=== PATIENT | male | born 1940 | race Caucasian/White ===

== ENCOUNTER 2019-11-08 00:18 | Outpatient (CLI) | payer MEDICARE, SELFPAY ==
[2019-11-08 15:54] LABS: SARS-CoV-2 RNA PCR Negative
== END 2019-11-08 00:19 | disposition home or self-care (01) ==
LOC: ANHCOVIDDT 00:19
PROVIDERS: PCP Internal Medicine; Visit Provider Specialist
DX: Z01.818 Encounter for other preprocedural examination (principal); Z11.59 Encounter for screening for other viral diseases
CPT/HCPCS: 87635; C9803; U0003

== ENCOUNTER 2019-11-11 05:16 | Day surgery (SDC) | payer MEDICARE, SELFPAY ==
[2019-11-08 18:23] VITALS: BMI 25.9
[2019-11-11] VITALS (12 sets, daily range): BP systolic 141–171; BP diastolic 66–85; PULSE 48–64; RESP 12–16; TEMP 36.4–36.6; O2SAT 99–100; BMI 25.9; BMI 25.0
--- NOTE | 2019-11-11 07:20 | SUR.PREOP ---
ARRIVES AMBULATORY TO [facility] FROM OP SURGICAL REGISTRATION FOR SCHEDULED LHC W/ DR. HO. DENIES CP OR SOB AT THIS TIME. ORIENTED TO ROOM , PLAN OF CARE, PROCEDURE. QUESTIONS ANSWERED. VS OBTAINED, IV STARTED, LABS SENT, CONSENT SIGNED, SKIN PREP COMPLETED, PULSES MARKED. WILL MONITOR.
[2019-11-11 07:41] LABS: Basophils Percent Auto 0.5 % (0.2-1.2); Eosinophils Absolute Auto 0.2 K/mm3 (0-0.3); Hematocrit 39.1 % (42.0-52.0); Hemoglobin 12.7 g/dL (14.0-18.0); Immature Granulocyte Absolute 0.01 K/mm3 (0.00-0.031); Immature Granulocyte Percent A 0.2 % (0-0.5); Lymphocytes Absolute Auto 1.54 K/mm3 (0.9-3.2); Lymphocytes Percent Auto 36.7 % (18.3-44.2); Mean Corpuscular HGB Conc 32.5 g/dl (32-36); Mean Corpuscular Hemoglobin 31.5 pg (26-34); Mean Platelet Volume 10.6 fl (7.4-10.4); Monocytes Absolute Auto 0.3 K/mm3 (0.1-0.6); Monocytes Percent Auto 6.2 % (2.6-8.5); Neutrophils Absolute Auto 2.2 K/mm3 (1.3-6.7); Neutrophils Percent Auto 52.4 % (45.5-73.1); Platelet Count Result 144 k/mm3 (150-375); Red Blood Count 4.03 M/mm3 (4.6-6.20); Red Cell Distribution Width 13.1 % (11.5-14.5); White Blood Count 4.2 K/mm3 (4.5-10.0)
[2019-11-11 07:50] LABS: INR 0.9; Prothrombin Time 12.3 Seconds (11.1-14.7)
[2019-11-11 07:52] LABS: Blood Urea Nitrogen 29 mg/dL (9-20); Calcium 9.5 mg/dL (8.4-10.2); Carbon Dioxide 30 mmol/L (22-30); Chloride 104 mmol/L (98-107); Estimated CRCL calculation 54 ml/min; Estimated Glomerular Filt Rate > 60; Glucose 95 mg/dL (75-110); Sodium 137 mmol/L (137-145)
--- NOTE | 2019-11-11 08:50 | WPDMODSED ---
Moderate Sedation Note-Pt Data Patient Data Diagnosis: 79-year-old gentleman with no previous documented history of coronary disease with a history of chest pain intermittently for approximately 1 year that is nonexertional. Present Complaint: Intermittent chest pain Procedure to be performed/Plan: left heart catheterization Allergies Allergy/AdvReac Type Severity Reaction Status Date / Time No Known Allergies Allergy Unknown Uncoded 11/08/19 18:12 Home Medications Medication Instructions Recorded Confirmed Type tamsulosin 0.4 mg capsule 0.4 mg PO DAILY #90 cap 06/11/19 11/08/19 Rx levothyroxine 50 mcg tablet 50 mcg PO DAILY #90 tablet 09/18/19 11/08/19 Rx lisinopril 10 mg tablet 10 mg PO DAILY #90 tablet 09/18/19 11/08/19 Rx aspirin [Adult Low Dose Aspirin] 81 mg PO DAILY 11/08/19 11/08/19 History omeprazole 20 mg PO DAILY 11/08/19 11/08/19 History Current Medications: Active Medications Sodium Chloride (Normal Saline Iv) 500 mls @ 100 mls/hr IV CONT .Q5H [facility] Sedation/Anesthesia: No previous sedation/anesthesia problems (including family history). [facility] Social History Social History (Updated 11/08/19 @ 18:11 by Shanelle Thompson RN) Smoking status: Never smoker Alcohol intake: current Drinks per week: 1 Substance use: never Gender identity (if verbalized by the patient): Male Mod Sed Physical Exam Physical Exam Pre Procedural Exam: Normal: Appearance, Neck, Throat, Airway, Lungs, Heart Size, Heart Rate, Heart Rhythm, Neuro Exam and Extremities Hours since solid foods: 12 Hours since liquid intake: 12 Internal Medicine - PN: Obj Da Vital Signs Vital Signs: Vital Signs - 24 hr 11/11/19 07:35 Temperature 36.4 C L Pulse Rate 64 Respiratory Rate 16 Blood Pressure 171/85 H Pulse Oximetry 100 Meds/Results Medications: Active Medications Generic Name Dose Route Start Last Admin Trade Name Freq PRN Reason Stop Dose Admin Sodium Chloride 500 mls @ 100 mls/hr 11/11/19 06:45 Normal Saline Iv IV CONT .Q5H [facility] Labs CBC & Chem 7: 11/11/19 07:34 11/11/19 07:34 Labs: Laboratory Results - last 24 hr 11/11/19 11/11/19 11/11/19 07:34 07:34 07:34 WBC 4.2 L RBC 4.03 L Hgb 12.7 L Hct 39.1 L MCV 97.0 MCH 31.5 MCHC 32.5 RDW 13.1 Plt Count 144 L MPV 10.6 H Immature Gran % (Auto) 0.2 Neut % (Auto) 52.4 Lymph % (Auto) 36.7 Bailey % (Auto) 6.2 Eos % (Auto) 4.0 Baso % (Auto) 0.5 Lymph # (Auto) 1.54 Bailey # (Auto) 0.3 Eos # (Auto) 0.2 Baso # (Auto) 0.0 Abs Immat Gran (auto) 0.01 Absolute Neuts (auto) 2.2 Absolute Nucleated RBC 0.0 Nucleated RBC % 0.0 PT 12.3 INR 0.9 Sodium 137 Potassium 4.0 Chloride 104 Carbon Dioxide 30 BUN 29 H Creatinine 0.90 Estim Creat Clear Calc 54 Estimated GFR > 60 Glucose 95 Calcium 9.5 ASA Classification/Sedation ASA Classification/Sedation ASA Class: II Emergent: No Risks: Risks, benefits and alternatives explained and patient/family accepted plan for sedation. Patient re-evaluated immediately prior to sedation.
--- NOTE | 2019-11-11 09:29 | P.PCNCC_ITS ---
Cardiac Cath Procedure Note Date of procedure:: 11/11/19 Performing physician:: Marlo Magana MD Indication:: intermittent chest pain Brief clinical history:: 79-year-old gentleman with about a 1 year history of chest pain intermittently which is atypical of angina. Procedure Procedure performed:: Left heart catheterization with left ventriculography and coronary angiography Sedation/Medication given:: fentanyl 50 mg Versed 2 mg case start time 9:12 a.m. case end time 9:27 a.m. sedation provided byAlbert Aguilera RN , trained observer Access site:: right femoral Estimated blood loss:: 15-20 cc Procedure note:: patient was brought to the cardiac catheterization lab in the postabsorptive state where the right femoral triangle was prepared and draped in the usual fashion. Anesthesia was provided with 1% lidocaine infiltrated locally. Using modified Seldinger technique a 5 Filipino sheath was placed into the right femoral artery. After this left heart catheterization was carried out. The 5 Filipino angled pigtail catheter was utilized to measure left-sided hemodynamics and to injection LV g in the are AO projection. Following this I used standard FL4 and JR4 catheters to engage inject left right coronaries in multiple projections. The cine angiograms were then reviewed and the case was terminated. I performed angiogram of the femoral artery through the sheath at determine to pull the sheath with direct manual compression. He left the organic lab worker in no evidence of a groin hematoma and no evidence of a knee procedural complication. Findings:: Hemodynamics: Central aortic pressure was 1 34/58 left ventricle 134/0 end-diastolic 8, there is no systolic gradient on pullback across the aortic valve. The left ventricle is normal in size all segments contract appropriately the global ejection fraction is visually estimated to be 50% the left main coronary is widely patent and of large caliber the LAD is a large caliber vessel extending down to around the apex. The LAD its branches are smooth and angiographically normal. Circumflex is a large caliber vessel giving rise to only 1 very large marginal branch. It however is angiographically free of disease. Right coronary is large caliber and dominant to the posterior circulation the right coronary its PDA and posterolateral branches are angiographically normal. Conclusion:: Right coronary dominant circulation with no evidence of CAD preserved left ventricular systolic function chest pain syndrome is clearly nonischemic based on these findings Marlo Magana MD [facility]
== END 2019-11-11 15:45 | disposition home or self-care (01) ==
PROVIDERS: PCP Internal Medicine; Visit Provider Specialist
PROC: 4A023N7 Measurement of Cardiac Sampling and Pressure, Left Heart, Percutaneous Approach (ICD-10-PCS; CPT 93452; principal; 2019-11-11 08:30)
DX: R07.89 Other chest pain (principal); R94.31 Abnormal electrocardiogram [ECG] [EKG]; I10 Essential (primary) hypertension; N40.0 Benign prostatic hyperplasia without lower urinary tract symptoms; E07.9 Disorder of thyroid, unspecified; Z79.82 Long term (current) use of aspirin
CPT/HCPCS: 36415; 80048; 85025; 85610; 93458; C1887; C1894; J1644; J2250; J3010; J7040

== ENCOUNTER 2019-12-14 02:07 | Outpatient (CLI) | payer MEDICARE, SELFPAY ==
[2019-12-14 18:09] LABS: SARS-CoV-2 RNA PCR Negative
== END 2019-12-14 02:08 | disposition home or self-care (01) ==
LOC: ANHCOVIDDT 02:07
PROVIDERS: PCP Internal Medicine; Visit Provider Internal Medicine Cardiovascular Disease
DX: Z01.818 Encounter for other preprocedural examination (principal); Z11.59 Encounter for screening for other viral diseases
CPT/HCPCS: 87635; C9803; U0003

== ENCOUNTER 2019-12-17 05:29 | Day surgery (SDC) | payer MEDICARE, SELFPAY ==
[2019-12-16 15:35] VITALS: BMI 25.1
[2019-12-17] VITALS (9 sets, daily range): BP systolic 161–180; BP diastolic 72–105; PULSE 55–75; RESP 10–16; TEMP 36.7; O2SAT 99–100; BMI 26.9
--- NOTE | 2019-12-17 10:42 | P.SEDATION_ITS ---
Moderate Sedation Note-Pt Data Patient Data Allergies Allergy/AdvReac Type Severity Reaction Status Date / Time No Known Allergies Allergy Verified 12/17/19 06:02 Home Medications Medication Instructions Recorded Confirmed Type tamsulosin 0.4 mg capsule 0.4 mg PO DAILY #90 cap 06/11/19 12/16/19 Rx levothyroxine 50 mcg tablet 50 mcg PO DAILY #90 tablet 09/18/19 12/16/19 Rx lisinopril 10 mg tablet 10 mg PO DAILY #90 tablet 09/18/19 12/16/19 Rx omeprazole 20 mg PO DAILY 11/08/19 12/16/19 History aspirin 81 mg PO DAILY 12/16/19 12/16/19 History Sedation/Anesthesia: No previous sedation/anesthesia problems (including family history). [facility] Social History Social History (Updated 11/08/19 @ 18:11 by Shanelle Thompson RN) Smoking status: Never smoker Alcohol intake: current Drinks per week: 1 Substance use: never Living arrangements: with family Gender identity (if verbalized by the patient): Male Mod Sed Physical Exam Physical Exam Pre Procedural Exam: Normal: Airway Hours since solid foods: 8 Hours since liquid intake: 8 Internal Medicine - PN: Obj Da Vital Signs Vital Signs: Vital Signs - 24 hr 12/17/19 09:58 Temperature 36.7 C Pulse Rate 61 Respiratory Rate 10 L Blood Pressure 173/72 H Pulse Oximetry 100 ASA Classification/Sedation ASA Classification/Sedation Risks: Risks, benefits and alternatives explained and patient/family accepted plan for sedation. Patient re-evaluated immediately prior to sedation.
--- NOTE | 2019-12-17 10:43 | WPDHPUPDATE1 ---
History and Physical Update Update Date/Time: 12/17/19 10:43 History and Physical has been reviewed, including an updated exam of the patient. There are NO changes in the patient's condition. Risks, benefits, and alternatives have been discussed and questions answered. Patient agrees to proceed with procedure.
--- NOTE | 2019-12-17 11:36 | WPDTEECHO ---
HUSSEIN TransEsophageal Echocardiogram Date of procedure: 12/17/19 Findings: PROCEDURES PERFORMED: 1. Multiplane transesophageal echocardiography with color flow and Doppler assessment 2. Moderate sedation- CPT code 03450 SEDATION: Propofol 40 milligram IV;Midazolam 1 mg, start time 1053, stop time 1108 , total [id number] time 15 minutes; Lloyd Cm RN was trained observer for moderate sedation. PROCEDURE: After obtaining informed consent, patient was brought to the chest Pain Center. Patient was given lidocaine gel, followed by 1 spray of benzocaine spray. Bite block was placed. Patient was positioned in the left lateral position. After adequate sedation with propofol, transesophageal scope was advanced and multiplanar transesophageal echocardiography was performed with and without color flow and Doppler assessment. Patient's vitals were monitored throughout the procedure. Patient tolerated procedure well. There were no immediate procedure related complications. LEFT VENTRICLE: Borderline LV enlargement with LV ELENA 52 mm; mild LVH, LVEF 55-60%. RIGHT VENTRICLE: Normal size and systolic function. LEFT ATRIUM: Mild left atrial enlargement. No evidence of left atrial appendage thrombus. RIGHT ATRIUM: Normal size ATRIAL SEPTUM: small interatrial shunt is seen on color Doppler with what appears to be negative contrast on injection of agitated normal saline suggestive of possible small [id number] shunt.. MITRAL VALVE: normal structure, mild mitral regurgitation. AORTIC VALVE: Normal appearing, trileaflet aortic valve. No stenosis, planimetered aortic valve area 3.3 cm2. Aoderate aortic regurgitation is seen. A subaortic ridge is seen with some flow turbulence; no significant subvalvular aortic stenosis. TRICUSPID VALVE: Normal structure, unable to assess RVSP due to inadequate TR jet. PULMONIC VALVE: Normal structure, trivial pulmonary regurgitation. PERICARDIUM: Normal, no significant pericardial effusion AORTA: Sinus of Valsalva 3.9 cm, sinotubular junction 3.2 cm, ascending aorta 3.4 cm. RHYTHM: Sinus Conclusions: 1. Borderline LV enlargement; mild LVH, LVEF 55-60% . 2. Mild left enlargement; probable small [id number] interatrial shunt on color Doppler. 3. Mild mitral regurgitation. 4. Normal appearing, trileaflet aortic valve without stenosis; moderate aortic regurgitation. A subaortic ridge is seen in multiple views with some flow turbulence; no significant subvalvular aortic stenosis. 5. Sinus of Valsalva 3.9 cm, sinotubular junction 3.2 cm, ascending aorta 3.4 cm. PLAN/RECOMMENDATIONS: The HUSSEIN findings were discussed with patient's primary automobile travel club counselor- Dr. Yeboah. The patient will follow-up with him for further management. If patient has had progressively worsening symptomatic aortic regurgitation, then CT surgical evaluation for surgical resection of the ridge would be appropriate.
== END 2019-12-17 13:08 | disposition home or self-care (01) ==
PROVIDERS: PCP Internal Medicine; Visit Provider Internal Medicine Cardiovascular Disease
PROC: (CPT 93312; principal; 2019-12-17 11:00)
DX: I35.1 Nonrheumatic aortic (valve) insufficiency (principal); I34.0 Nonrheumatic mitral (valve) insufficiency; I10 Essential (primary) hypertension; I48.91 Unspecified atrial fibrillation; N40.0 Benign prostatic hyperplasia without lower urinary tract symptoms; K21.9 Gastro-esophageal reflux disease without esophagitis; Z79.82 Long term (current) use of aspirin
CPT/HCPCS: 93312; 93320; 93325; J2250; J2704; J3010; J7040

== ENCOUNTER 2020-03-11 07:06 | Outpatient (CLI) | payer MEDICARE, SELFPAY ==
--- NOTE | 2020-03-18 22:47 | SLEEP_ITS ---
HOME SLEEP TEST DATE OF STUDY: 03/11/2020 ORDERING PHYSICIAN: Dr. Belén Ceron. REASON FOR THIS STUDY: Insomnia, sleep apnea, unspecified. HISTORY: This patient is an 79-year-old man, 5 feet 6 inches tall, weighing 170 pounds with a body mass index of 27.4. He goes to sleep approximately 3 a.m. He wakes up 5 or 6 times during the night. This has been going on for several months. He occasionally snores and occasionally it is loud enough that other people complain about it. He does not awaken at night with heartburn, belching, or coughing. He does not awaken from sleep feeling short of breath. He rarely has trouble sleeping with a cold, does not gasp for breath at night or have breathing problems at night observed by others. He does not sweat excessively at night. He rarely notices his heart pounding or beating irregularly at night, occasionally falls asleep during the day, rarely involuntarily but never while driving. He does not fall asleep during physical effort. He does not experience loss of muscle tone with strong emotion. He does not have daytime difficulties due to excessive sleepiness. He does not feel paralyzed on waking or falling asleep. He never has vivid dreamlike scenes upon awakening or falling asleep. He never is afraid to go to sleep. He does not have nightmares. He rarely remembers his dreams. He does not have racing thoughts, feelings of sadness, depression or anxiety. He frequently has muscular tension. He occasionally notices parts of his body jerking and he occasionally kicks at night. He frequently has crawly achy feelings in his legs and frequently has leg pain during the night. He does not have morning jaw pain and does not grind his teeth during sleep. He frequently is bothered by pain during the day, is awakened by pain at night, wakes up feeling stiff in the morning with sore achy muscles and pain in the neck and spine. He has fatigue. Normal bedtime has been 10 p.m., taking 15 minutes to fall asleep typically waking 5-10 times at night, staying awake for 0.5 hour. While awake, he will read, watch television. He wakes in the morning at 6:30 a.m. Weekend schedule is the same. He does take naps. Naps are not refreshing. He is usually drowsy in the morning. MEDICAL COMORBIDITIES: Hypertension, hypothyroidism, gastroesophageal reflux disease, arthritis, radiculopathy. MEDICATIONS: 1. Omeprazole 20 mg a day. 2. Tamsulosin 0.4 mg daily. 3. Levothyroxine 50 mcg daily. 4. Lisinopril 10 mg a day. 5. Aspirin 81 mg a day. HABITS: Tobacco: Never smoked tobacco. Current alcohol 1 or 2 drinks per week. Caffeine, 2 cups per day. No recreational drugs. DESCRIPTION OF THE STUDY: On the Wiley Sleepiness Scale, his score is 8. This test was conducted as an unattended type 3 portable home sleep test using 4 channel monitoring including respiratory effort channel, snoring channel, oxygen saturation channel, and heart rate channel. This study was scored using [facility] guidelines. The duration of the evaluation time was 6 hours 51 minutes. The apnea-hypopnea index is 6, consistent with mild obstructive sleep apnea, oxygen desaturation index is 2.2, which is normal. Lowest desaturation is 92%. The patient had 30 apneas. 53% of the apneas or 16 were central, 43% or 13 apneas were obstructive and 3%, 1 apnea was mixed. He had 9 hypopneas. He had 155 snoring events, which is very low. He had 15 desaturations but spent no time below 88%. Heart rate ranged from 46 to 92. IMPRESSION: 1. This home sleep test shows mild obstructive sleep apnea G47.33, with an apnea-hypopnea index of 6, lowest desaturation to 92% with mild snoring and 15 desaturations. He was almost evenly split between obstructive and central events, 43% obst
== END 2020-03-11 07:07 | disposition home or self-care (01) ==
PROVIDERS: PCP Internal Medicine; Visit Provider Internal Medicine Critical Care Medicine
DX: G47.00 Insomnia, unspecified (principal); G47.30 Sleep apnea, unspecified; G47.33 Obstructive sleep apnea (adult) (pediatric); G25.81 Restless legs syndrome; M54.12 Radiculopathy, cervical region; M54.16 Radiculopathy, lumbar region; I10 Essential (primary) hypertension; E03.9 Hypothyroidism, unspecified
CPT/HCPCS: 95806

== ENCOUNTER 2020-03-24 09:18 | Outpatient (CLI) | payer MEDICARE, SELFPAY ==
--- NOTE | 2020-03-24 11:00 | NEURO_ITS ---
Patient Number: [id number] Impression: # Complains of numbness of hands. # Mild left Carpal Tunnel Syndrome. # Left ulnar neuropathy across the elbow. # Abnormal needle/EMG exam. Nerve Conduction Studies Anti Sensory Summary Table Stim Site NR Peak (ms) P-T Amp (?V) Site1 Site2 Delta-P (ms) Dist (cm) Markos (m/s) Left Median Anti Sensory (2-3nd Digit) Wrist 4.5 49.2 Wrist 2-3nd Digit 4.5 14.0 31 Wrist 4.0 35.0 Wrist 2-3nd Digit 4.5 14.0 31 Right Median Anti Sensory (2-3nd Digit) Wrist 3.8 41.3 Wrist 2-3nd Digit 3.8 14.0 37 Wrist 4.0 22.3 Wrist 2-3nd Digit 3.8 14.0 37 Left Radial Anti Sensory (Base 1st Digit) Wrist 2.8 9.4 Wrist Base 1st Digit 2.8 0.0 Right Radial Anti Sensory (Base 1st Digit) Wrist 2.8 19.1 Wrist Base 1st Digit 2.8 0.0 Left Ulnar Anti Sensory (5th Digit) Wrist 3.3 43.0 Wrist 5th Digit 3.3 14.0 42 Right Ulnar Anti Sensory (5th Digit) Wrist 3.4 38.4 Wrist 5th Digit 3.4 14.0 41 Motor Summary Table Stim Site NR Onset (ms) O-P Amp (mV) Site1 Site2 Delta-0 (ms) Dist (cm) Markos (m/s) Left Median Motor (Abd Poll Brev) Wrist 4.0 2.0 Elbow Wrist 4.8 27.0 56 Elbow 8.8 1.6 Right Median Motor (Abd Poll Brev) Wrist 3.6 1.4 Elbow Wrist 4.7 28.0 60 Elbow 8.3 1.5 Left Ulnar Motor (Abd Dig Minimi) Wrist 2.8 3.4 A Elbow Wrist 6.0 28.0 47 A Elbow 8.8 3.6 B Elbow Wrist 4.0 24.0 60 B Elbow 6.8 3.8 Right Ulnar Motor (Abd Dig Minimi) Wrist 3.0 4.8 A Elbow Wrist 5.2 29.0 56 A Elbow 8.2 3.7 F Wave Studies NR F-Lat (ms) L-R F-Lat (ms) Left Median (Mrkrs) (Abd Poll Brev) 29.53 0.00 Right Median (Mrkrs) (Abd Poll Brev) 29.53 0.00 Left Ulnar (Mrkrs) (Abd Dig Min) 31.00 0.88 Right Ulnar (Mrkrs) (Abd Dig Min) 30.12 0.88 EMG Side Muscle Nerve Root Ins Act Fibs Amp Dur Recrt Comment Right 1stDorInt Ulnar C8-T1 Nml Nml Nml Nml Nml Right Ext Indicis Radial (Post Int) C7-8 Nml Nml Nml Nml Nml Right Ext Digitorum Radial (Post Int) C7-8 Nml Nml Nml Nml Nml Right BrachioRad Radial C5-6 Nml Nml Nml Nml Nml Right PronatorTeres Median C6-7 Nml Nml Nml Nml Nml Right Abd Poll Brev Median C8-T1 Nml Nml Nml Nml Nml Left 1stDorInt Ulnar C8-T1 Nml Nml Nml Nml Nml Left Ext Indicis Radial (Post Int) C7-8 Nml Nml Nml Nml Nml Left Ext Digitorum Radial (Post Int) C7-8 Nml Nml Nml Nml Nml Left BrachioRad Radial C5-6 Nml Nml Nml Nml Nml Left PronatorTeres Median C6-7 Nml Nml Nml Nml Nml Left Abd Poll Brev Median C8-T1 Nml Nml Nml Nml Nml Right ABD Dig Min Ulnar C8-T1 Nml Nml Nml Nml Nml Left ABD Dig Min Ulnar C8-T1 Nml Nml Incr >12ms Reduced Right Anconeus Radial C7-8 Nml Nml Nml Nml Nml Right Brachialis Musculocut C5-6 Nml Nml Nml Nml Nml Left Anconeus Radial C7-8 Nml Nml Nml Nml Nml Left Brachialis Musculocut C5-6 Nml Nml Nml Nml Nml MTDD
== END 2020-03-24 09:19 | disposition home or self-care (01) ==
PROVIDERS: PCP Internal Medicine; Visit Provider Internal Medicine
DX: G56.02 Carpal tunnel syndrome, left upper limb (principal); G56.22 Lesion of ulnar nerve, left upper limb
CPT/HCPCS: 95886; 95911

== ENCOUNTER 2020-04-13 03:43 | Outpatient (CLI) | payer MEDICARE, SELFPAY ==
[2020-04-13 20:40] LABS: SARS-CoV-2 RNA PCR Negative
== END 2020-04-13 03:44 | disposition home or self-care (01) ==
LOC: ANHCOVIDDT 03:43
PROVIDERS: PCP Internal Medicine; Visit Provider Internal Medicine Critical Care Medicine
DX: Z01.812 Encounter for preprocedural laboratory examination (principal); Z20.828 Contact with and (suspected) exposure to other viral communicable diseases
CPT/HCPCS: 87635; C9803; U0003

== ENCOUNTER 2020-04-15 07:34 | Outpatient (CLI) | payer MEDICARE, SELFPAY ==
--- NOTE | 2020-05-20 10:04 | P.SLEEP_ITS ---
Sleep Study - Home Unattended Date of Study: 04/15/20 Interpreting Physician: Antonia Flynn MD Height: 1.7 m Weight: 77.111 kg Body Mass Index: 26.6 Neck Circumference (inches): 15 Comfort: 8 Reason for Sleep Study THIS WAS OPENED IN ERROR; HE HAD A STUDY IN THE SLEEP LAB, not a WATCHPAT. DISREGARD. Sleep History [facility] Past Medical History Medical History (Updated 05/20/20 @ 10:20 by Antonia Flynn MD) Arthritis Benign essential hypertension GERD without esophagitis Hypothyroidism (acquired) Insomnia Radiculopathy Surgical History Surgical History Status post cholecystectomy Family History Family History Father Malignant neoplasm of prostate Social History Social History Smoking status: Never smoker Alcohol intake: current Drinks per week: 1 Substance use: never Gender identity (if verbalized by the patient): Male Medications Home Medications Medication Instructions Recorded Confirmed Type tamsulosin 0.4 mg capsule 0.4 mg PO DAILY #90 cap 06/11/19 01/17/20 Rx lisinopril 10 mg tablet 10 mg PO DAILY #90 tablet 09/18/19 01/17/20 Rx omeprazole 20 mg PO DAILY 11/08/19 01/17/20 History aspirin 81 mg PO DAILY 12/16/19 01/17/20 History levothyroxine 50 mcg tablet 50 mcg PO DAILY #90 tablet 03/13/20 Rx Sleep Procedure The sleep study was completed using WatchPAT a technically adequate device with seven channels: peripheral arterial tone, actigraphy, body position, snore, respiratory movement, pulse oximetry, sleep staging, and heart rate. Prior to using the device, the patient received verbal and written instructions for its application and was provided with the help desk phone number for additional telephonic instruction with 24-hour availability of qualified personnel to answer questions.
--- NOTE | 2020-05-20 14:03 | WPDSLEEPSTUD ---
Sleep Study Date of Study: 04/15/20 Ordering Provider: Belén Ceron MD Interpreting Physician: Antonia Flynn MD Sleep Study Type: CPAP Titration Height: 1.7 m Weight: 77.111 kg Body Mass Index: 26.6 Neck Circumference: 38.1 cm [place]: 8 Reason for Sleep Study Home sleep test 03/11/2020 with mild sleep apnea, AHI 6, with 43% obstructive events and 53% central events; presents for CPAP titration Sleep History Walker Rhoades is an 79 year-old man who had a home sleep test Mar 11, 2020 showing mild sleep disordered breathing, AHI 6 with more central apneas than obstructive apneas, as well as hypopneas. On April 15, 2020 he underwent a CPAP titration as auto-PAP is not optimal for central apneas. History: He goes to sleep approximately 3 a.m. He wakes up 5 or 6 times during the night. This has been going on for several months. He occasionally snores and occasionally it is loud enough that other people complain about it. He does not awaken at night with heartburn, belching, or coughing. He does not awaken from sleep feeling short of breath. He rarely has trouble sleeping with a cold, does not gasp for breath at night or have breathing problems at night observed by others. He does not sweat excessively at night. He rarely notices his heart pounding or beating irregularly at night, occasionally falls asleep during the day, rarely involuntarily but never while driving. He does not fall asleep during physical effort. He does not experience loss of muscle tone with strong emotion. He does not have daytime difficulties due to excessive sleepiness. He does not feel paralyzed on waking or falling asleep. He never has vivid dreamlike scenes upon awakening or falling asleep. He never is afraid to go to sleep. He does not have nightmares. He rarely remembers his dreams. He does not have racing thoughts, feelings of sadness, depression or anxiety. He frequently has muscular tension. He occasionally notices parts of his body jerking and he occasionally kicks at night. He frequently has crawly achy feelings in his legs and frequently has leg pain during the night. He does not have morning jaw pain and does not grind his teeth during sleep. He frequently is bothered by pain during the day, is awakened by pain at night, wakes up feeling stiff in the morning with sore achy muscles and pain in the neck and spine. He has fatigue. Normal bedtime has been 10 p.m., taking 15 minutes to fall asleep typically waking 5-10 times at night, staying awake for 0.5 hour. While awake, he will read, watch television. He wakes in the morning at 6:30 a.m. Weekend schedule is the same. He does take naps. Naps are not refreshing. He is usually drowsy in the morning. PMH: Hypertension, hypothyroidism, gastroesophageal reflux disease, arthritis, radiculopathy. HABITS: Never smoked tobacco. Current alcohol 1 or 2 drinks per week. Caffeine, 2 cups per day. No recreational drugs. [facility] Past Medical History Medical History (Updated 05/20/20 @ 18:51 by Antonia Flynn MD) Arthritis Benign essential hypertension GERD without esophagitis Hypothyroidism (acquired) Insomnia Obstructive Sleep Apnea-Hypopnea Syndrome Radiculopathy Surgical History Surgical History Status post cholecystectomy Family History Family History Father Malignant neoplasm of prostate Social History Social History Smoking status: Never smoker Alcohol intake: current Drinks per week: 1 Substance use: never Gender identity (if verbalized by the patient): Male Medications Home Medications Medication Instructions Recorded Confirmed Type tamsulosin 0.4 mg capsule 0.4 mg PO DAILY #90 cap 06/11/19 01/17/20 Rx lisinopril 10 mg tablet 10 mg PO DAILY #90 tablet 09/18/19 01/17/20 Rx omeprazole 20 mg PO DAILY
[2020-05-20 19:04] VITALS: BMI 26.6
== END 2020-04-15 07:35 | disposition home or self-care (01) ==
LOC: ANHCSM 07:35
PROVIDERS: PCP Internal Medicine; Visit Provider Internal Medicine Critical Care Medicine
DX: G47.33 Obstructive sleep apnea (adult) (pediatric) (principal)
CPT/HCPCS: 95811

== ENCOUNTER 2021-09-07 01:04 | Emergency (ER) | payer MEDICARE, SELFPAY ==
[2021-09-07 01:06] VITALS: BP 190/91; PULSE 82; RESP 16; TEMP 36.4; O2SAT 100
--- NOTE | 2021-09-07 01:26 | ED.LOWEXIN ---
HPI - Extremity Injury (Lower) General Chief Complaint: Extremity Injury, Lower Stated Complaint: right hip pain Time Seen by Provider: 09/07/21 01:18 History of Present Illness HPI Narrative: 80-year-old male presents to the emergency room with complaints of acute onset of right lower back pain. Patient states pain starts in his right gluteus and radiates to his right lower back. Pain is worse with trunk rotation, and lateral bend to the right. Patient states he is unable to lie flat, or ambulate without severe pain. Denies injury or trauma. patient states the only positions comfortable for him is when he is sitting and leaning forward. Patient denies saddle anesthesia. Patient states that he has this pain intermittently after his back surgery 1 year ago. Related Data Home Medications Medication Instructions Recorded Confirmed aspirin 81 mg PO DAILY 12/16/19 01/17/20 carbidopa 25 mg-levodopa 100 mg 1 tablet PO TID 08/17/21 tablet Allergies Allergy/AdvReac Type Severity Reaction Status Date / Time No Known Allergies Allergy Verified 09/07/21 01:08 Review of Systems Review of Systems: CONSTITUTIONAL: Denies fever, chills, or sweats. EYES: Denies visual changes, redness, or discharge. ENT: Denies rhinorrhea, congestion, sore throat, or otalgia. CARDIOVASCULAR: Denies chest pain, palpitations, or edema. RESPIRATORY: Denies cough or dyspnea. GASTROINTESTINAL: Denies abdominal pain, nausea, vomiting, or diarrhea. GENITOURINARY: Denies dysuria or hematuria. SKIN: Denies rash or itching. MUSCULOSKELETAL: Reports low back pain NEUROLOGIC: Denies headache, numbness, dizziness, or weakness. PSYCHIATRIC: Denies anxiety or depression. [facility] Past Medical History Medical History Arthritis Benign essential hypertension GERD without esophagitis Hypothyroidism (acquired) Insomnia Obstructive Sleep Apnea-Hypopnea Syndrome Radiculopathy Surgical History Surgical History Status post cholecystectomy Family History Family History Father Malignant neoplasm of prostate Social History Social History Smoking status: Never smoker Alcohol intake: current Drinks per week: 1 Alcohol use details: occasional social drinker. Substance use: never Gender identity (if verbalized by the patient): Male Exam Narrative: GENERAL: Well-appearing, well-nourished, and in no acute distress. HEAD: Normocephalic, atraumatic. EYES: PERRLA and EOMI. CHEST: Clear to auscultation. No respiratory distress. No wheezes rales or rhonchi HEART: Regular rate and rhythm. No murmur heard. Normal peripheral pulses. ABDOMEN: Soft, nontender, nondistended, normal active bowel sounds. EXTREMITIES: Normal range of motion. No edema. BACK:, Tenderness to the right sacroiliac joint; limited range of motion to the lumbar spine due to pain; no midline tenderness, no step-offs, no bony abnormality SKIN: Warm, dry, no rash. NEURO: No focal deficits. Alert and oriented x3. PSYCH: Normal mood and affect. Course Vital Signs Vital signs: Vital Signs Temperature 36.4 C 09/07/21 01:06 Pulse Rate 82 09/07/21 01:06 Respiratory Rate 16 09/07/21 01:06 Blood Pressure 190/91 H 09/07/21 01:06 Pulse Oximetry 100 09/07/21 01:06 Temperature 36.4 C 09/07/21 01:06 Pulse Rate 82 09/07/21 01:06 Respiratory Rate 16 09/07/21 01:06 Blood Pressure 190/91 H 09/07/21 01:06 Pulse Oximetry 100 09/07/21 01:06 Discharge Plan Discharge Clinical Impression: Sacroiliitis Patient Disposition: Home, Self-Care Condition: Stable Instructions: Antibiotic Form Prescriptions: New methocarbamol 500 mg tablet 500 mg PO BID 7 Days Qty: 14 RF: 0 naproxen 500 mg tablet 500 mg PO BID Qty: 14 RF
[2021-09-07] MEDS: KETOROLAC (*BKC) 60 MG/2 ML VIAL IM (01:30)
[2021-09-07] MEDS: methocarbamoL 500 MG TABLET PO (01:31)
== END 2021-09-07 02:21 | disposition home or self-care (01) ==
PROVIDERS: Emergency Provider Nurse Practitioner Family; PCP Family Medicine
DX: M46.1 Sacroiliitis, not elsewhere classified (principal); M19.90 Unspecified osteoarthritis, unspecified site; I10 Essential (primary) hypertension; E03.9 Hypothyroidism, unspecified; G47.00 Insomnia, unspecified; G47.33 Obstructive sleep apnea (adult) (pediatric); Z90.49 Acquired absence of other specified parts of digestive tract; Z79.82 Long term (current) use of aspirin; Z79.899 Other long term (current) drug therapy
CPT/HCPCS: 96372; 99283; A9270; J1885

== ENCOUNTER 2021-09-07 03:49 | Emergency (ER) | payer MEDICARE, SELFPAY ==
[2021-09-07 03:54] VITALS: BP 183/91; PULSE 68; RESP 16; TEMP 36.4; O2SAT 100
--- NOTE | 2021-09-07 04:11 | ED.LOWEXIN ---
HPI - Extremity Injury (Lower) General Chief Complaint: Extremity Injury, Lower Stated Complaint: rt hip pain - just here Time Seen by Provider: 09/07/21 03:58 Source: patient History of Present Illness HPI Narrative: Patient presents with low back pain. Patient was seen a few hours ago for the same. Is given Toradol and muscle relaxer in the ER discharge home. Reports he has continued pain to return to the ER. Patient reports has had intermittent symptoms for years was seen by a spine surgeon and had a procedure approximately 9 months ago his symptoms greatly improved. Continue to have intermittent symptoms but the intensity and frequency were less over the last 2 days he has had increasing pain particularly on the right. Does report a history of sciatica. Denies any acute change in focal numbness or weakness denies any bowel or bladder incontinence. Related Data Home Medications Medication Instructions Recorded Confirmed aspirin 81 mg PO DAILY 12/16/19 01/17/20 carbidopa 25 mg-levodopa 100 mg 1 tablet PO TID 08/17/21 tablet Allergies Allergy/AdvReac Type Severity Reaction Status Date / Time No Known Allergies Allergy Verified 09/07/21 01:08 Review of Systems Review of Systems: CONSTITUTIONAL: Denies fever, chills, or sweats. EYES: Denies visual changes, redness, or discharge. ENT: Denies rhinorrhea, congestion, sore throat, or otalgia. CARDIOVASCULAR: Denies chest pain, palpitations, or edema. RESPIRATORY: Denies cough or dyspnea. GASTROINTESTINAL: Denies abdominal pain, nausea, vomiting, or diarrhea. GENITOURINARY: Denies dysuria or hematuria. SKIN: Denies rash or itching. MUSCULOSKELETAL: Denies back pain, joint pain, or myalgia. NEUROLOGIC: Denies headache, numbness, dizziness, or weakness. PSYCHIATRIC: Denies anxiety or depression. All systems reviewed & are unremarkable except as noted in HPI and below PMFSH Past Medical History Medical History Arthritis Benign essential hypertension GERD without esophagitis Hypothyroidism (acquired) Insomnia Obstructive Sleep Apnea-Hypopnea Syndrome Radiculopathy Surgical History Surgical History Status post cholecystectomy Family History Family History Father Malignant neoplasm of prostate Social History Social History Smoking status: Never smoker Alcohol intake: current Drinks per week: 1 Alcohol use details: occasional social drinker. Substance use: never Gender identity (if verbalized by the patient): Male Exam Narrative: GENERAL: Well-appearing, well-nourished, and in no acute distress. HEAD: Normocephalic, atraumatic. EYES: PERRLA and EOMI. ENT: Nares clear, no rhinorrhea or epistaxis. Mucous membranes moist. NECK: Supple. No masses. No JVD EXTREMITIES: Normal range of motion. No edema. BACK: Diffuse low back pain no focal bony tenderness no step-offs. SKIN: Warm, dry, no rash. NEURO: No focal deficits. Alert and oriented x3. PSYCH: Normal mood and affect. Course Vital Signs Vital signs: Vital Signs Temperature 36.4 C 09/07/21 03:54 Pulse Rate 68 09/07/21 03:54 Respiratory Rate 16 09/07/21 03:54 Blood Pressure 183/91 H 09/07/21 03:54 Pulse Oximetry 100 09/07/21 03:54 Temperature 36.4 C 09/07/21 03:54 Pulse Rate 68 09/07/21 03:54 Respiratory Rate 16 09/07/21 03:54 Blood Pressure 183/91 H 09/07/21 03:54 Pulse Oximetry 100 09/07/21 03:54 MDM - Extremity Injury (Lower) MDM Narrative Medical decision making narrative: H&P as above, vss, pt looks clinically well, exam without focal neurological deficits, llabs/img considered, symptomatic relief available as needed, patient was given Toradol and muscle relaxers on most recent ER visit. Discuss difficulty with controlli
== END 2021-09-07 04:35 | disposition home or self-care (01) ==
LOC: ANHED 04:20
PROVIDERS: Emergency Provider Emergency Medicine; PCP Family Medicine
DX: M54.9 Dorsalgia, unspecified (principal); M19.90 Unspecified osteoarthritis, unspecified site; I10 Essential (primary) hypertension; E03.9 Hypothyroidism, unspecified; G47.00 Insomnia, unspecified; G47.33 Obstructive sleep apnea (adult) (pediatric); Z79.82 Long term (current) use of aspirin; Z79.899 Other long term (current) drug therapy; Z90.49 Acquired absence of other specified parts of digestive tract
CPT/HCPCS: 99283

== ENCOUNTER 2021-10-08 07:15 | Outpatient (CLI) | payer MEDICARE, SELFPAY ==
--- NOTE | ~2021-10-08 | MR_ITS ---
EXAMINATION: MR lumbar spine wo con DATE: 10/08/2021 08:42 INDICATION: Low back pain. Radiculopathy. TECHNIQUE: Magnetic resonance imaging (MRI) of the lumbar spine was performed without intravenous con trast. Sequences included sagittal T2-weighted FSE, sagittal T2-weighted FS FSE, sagittal T1-weighted FSE, and axial T2-weighted FSE. COMPARISON: None FINDINGS: There is 8 degrees levocurvature of lumbar spine. There is 3 mm retrolisthesis of L2 on L3, L3 on L4, and L4 on L5 and 9 mm anterolisthesis of L5 on S1. There are chronic bilateral L5 pars def ects. There are Schmorl's nodes at multiple levels. There is mildly decreased disc height at L1-L2 an d L2-L3, moderately decreased disc height at L3-L4 and L4-L5, and severely decreased disc height at L 5-S1 with endplate remodeling. The distal spinal cord signal intensity is normal. The conus medullari s is at L1. There is a 3.3 cm cyst in right kidney. The following disc levels are specifically discus sed: L1-L2: The disc is bulging and has an annular fissure. There is severe bilateral facet joint osteoart hritis. There is moderate bilateral neural foraminal stenosis. There is mild central canal stenosis. L2-L3: The disc is bulging and has an annular fissure. There is moderate bilateral facet joint osteoa rthritis. There is severe right and moderate left neural foraminal stenosis. There is mild central ca nal stenosis. L3-L4: The disc is bulging and has an annular fissure. There is severe right and moderate left facet joint osteoarthritis. There is moderate bilateral neural foraminal stenosis. There is mild central ca nal stenosis. L4-L5: The disc is bulging. There is mild bilateral facet joint osteoarthritis. There is moderate sally ateral neural foraminal stenosis. There is mild central canal stenosis. L5-S1: The disc is bulging and has an annular fissure. There is moderate bilateral facet joint osteoa rthritis. There is moderate bilateral neural foraminal stenosis. There is mild central canal stenosis . IMPRESSION: 1. Severe lumbar spondylosis. 2. Chronic bilateral L5 pars defects with grade 1 anterolisthesis of L5 on S1. Reviewed, dictated and finalized at location A.
== END 2021-10-08 07:16 | disposition home or self-care (01) ==
LOC: ANHIMG 07:20
PROVIDERS: PCP Family Medicine; Visit Provider Nurse Practitioner Family
DX: M54.16 Radiculopathy, lumbar region (principal); M53.86 Other specified dorsopathies, lumbar region; M43.17 Spondylolisthesis, lumbosacral region
CPT/HCPCS: 72148

== ENCOUNTER 2021-10-21 08:46 | Outpatient (CLI) | payer MEDICARE, SELFPAY ==
--- NOTE | ~2021-10-21 | XR_ITS ---
EXAMINATION: XR lg joint inject/asp w image DATE: 10/21/2021 09:56 INDICATION: Right hip pain TECHNIQUE: A time-out was performed to verify the patient's name, date of , and procedure to b e performed. The procedure including the risks, benefits, and alternatives was discussed with the pat ient. Risks discussed included bleeding and infection. The patient understood the risks and agreed to proceed. The skin overlying the right hip joint was prepped and draped in usual sterile fashion. A nesthetic was administered with 1% lidocaine subcutaneously. A 22 G needle was advanced under fluoro scopic guidance into the joint. Injection of 1 mL of Omnipaque 240 confirmed intra-articular positio n of the needle. Subsequently, injectate consisting of 5 mL of a 3:2 mixture of 1% lidocaine: 40 mg/ mL Depo-Medrol for a total dosage of 80 mg Depo-Medrol was instilled. Washout of contrast was seen co nfirming intra-articular administration. The needle was removed and the entry site was cleaned and dr essed. There were no immediate complications. Fluoroscopy exposure time was 0.1 minutes. The total n umber of images was 2. FINDINGS: Real-time fluoroscopy demonstrates the needle in the right hip joint. Patient's pain prior to procedure:6/10. Patient's pain following the procedure: 4/10. IMPRESSION: 1. Successful right hip joint injection of local anesthetic and steroid with mild decrease in the pat ient's presenting pain. Reviewed, dictated and finalized at location A. IMPRESSION: 1. Successful right hip joint injection of local anesthetic and steroid with mi ld decrease in the patient's presenting pain.
== END 2021-10-21 08:47 | disposition home or self-care (01) ==
PROVIDERS: PCP Family Medicine
DX: M25.551 Pain in right hip (principal)
CPT/HCPCS: 20610; 77002; J1030; Q9966

== ENCOUNTER 2021-12-24 11:54 | Outpatient (CLI) | payer MEDICARE, SELFPAY ==
[2021-12-24 19:56] LABS: Appearance Urine Clear (Clear); Bilirubin Urine Negative (Negative); Blood Urine Negative (Negative); Color Urine Yellow (Yellow); Glucose Urine UA Negative (Negative); Ketones Urine Negative (Negative); Leukocyte Esterase Ur 2+ LEU/UL (NEGATIVE); Nitrate Urine Negative (Negative); Protein Urine Negative (Negative); Urobilinogen Urine 0.2 mg/dL (<2.0); pH Urine 6.5 (5.0-9.0)
[2021-12-24 20:02] LABS: RBC Urine 0-2 /hpf (0-2); Squamous Epithelial Cell Urine Rare /hpf (Few)
[2021-12-24 20:10] LABS: Add Urine Microscopic? YES
== END 2021-12-24 11:55 | disposition home or self-care (01) ==
LOC: ANHGOSHLAB 11:57
PROVIDERS: PCP Family Medicine; Visit Provider Family Medicine
DX: R30.0 Dysuria (principal)
CPT/HCPCS: 81001

== ENCOUNTER 2022-09-26 06:34 | Emergency (ER) | payer MEDICARE, SELFPAY ==
[2022-09-26 06:37] VITALS: BP 134/64; PULSE 96; RESP 14; TEMP 36.8; O2SAT 98
[2022-09-26 08:16] LABS: Basophils Percent Auto 0.2 % (0.2-1.2); Eosinophils Percent Auto 0.4 % (0-4.4); Hematocrit 37.1 % (42.0-52.0); Hemoglobin 12.1 g/dL (14.0-18.0); Immature Granulocyte Absolute 0.05 K/mm3 (0.00-0.031); Immature Granulocyte Percent A 0.5 % (0-0.5); Immature Platelet Fraction Pct 4.6 % (0.9-11.2); Lymphocytes Percent Auto 6.2 % (18.3-44.2); Mean Corpuscular HGB Conc 32.6 g/dl (32-36); Mean Corpuscular Hemoglobin 31.9 pg (26-34); Mean Corpuscular Volume 97.9 fl (80-100); Mean Platelet Volume 10.1 fl (7.4-10.4); Monocytes Absolute Auto 0.6 K/mm3 (0.1-0.6); Monocytes Percent Auto 6.4 % (2.6-8.5); Neutrophils Absolute Auto 8.3 K/mm3 (1.3-6.7); Neutrophils Percent Auto 86.3 % (45.5-73.1); Platelet Count Result 135 k/mm3 (150-375); Red Blood Count 3.79 M/mm3 (4.6-6.20); Red Cell Distribution Width 13.1 % (11.5-14.5); White Blood Count 9.7 K/mm3 (4.5-10.0)
[2022-09-26 08:20] VITALS: BP 142/84; PULSE 84; RESP 16; O2SAT 98
[2022-09-26 08:26] LABS: Anion Gap 6 mmol/L (8-16); Blood Urea Nitrogen 21 mg/dL (9-20); Calcium 8.6 mg/dL (8.4-10.2); Carbon Dioxide 26 mmol/L (22-30); Chloride 99 mmol/L (98-107); Estimated CRCL calculation 54 ml/min; Estimated Glomerular Filt Rate > 60; Glucose 111 mg/dL (65-110); Potassium 3.8 mmol/L (3.4-5.0); Sodium 131 mmol/L (137-145)
--- NOTE | 2022-09-26 08:31 | ED.MALEGU ---
HPI - Male Genitourinary General Chief complaint: Urogenital-Male Stated complaint: urinary problems Time Seen by Provider: 09/26/22 07:00 History of Present Illness HPI Narrative: Patient is an 81-year-old male who presents ER with urinary retention. Last went to the restroom yesterday evening. He was having urinary frequency yesterday after having dysuria for the last month. He was seen in urgent care and they diagnosed him with a urinary infection and started him on cefdinir. Patient has history of MS prostate. He takes Flomax. He typically sees Dr. Gaming. Related Data Home Medications Medication Instructions Recorded Confirmed aspirin 81 mg chewable tablet 81 mg PO DAILY 12/16/19 06/27/22 carbidopa 25 mg-levodopa 100 mg 1 tablet PO TID 08/17/21 06/27/22 tablet amantadine HCl 100 mg capsule 100 mg PO BID 06/03/22 06/27/22 Allergies Allergy/AdvReac Type Severity Reaction Status Date / Time No Known Allergies Allergy Verified 09/26/22 06:34 Review of Systems Constitutional: Constitutional: Denies chills, Reports fatigue and Denies fever(s) Gastrointestinal: Gastrointestinal: Reports abdominal pain, Denies nausea and Denies vomiting Genitourinary: Genitourinary: Reports oliguria, Reports dysuria and Reports urinary frequency PMFSH Past Medical History Medical History Arthritis Benign essential hypertension GERD without esophagitis Hypothyroidism (acquired) Insomnia Obstructive Sleep Apnea-Hypopnea Syndrome Radiculopathy Surgical History Surgical History Status post cholecystectomy Family History Family History Father Malignant neoplasm of prostate Social History Social History Smoking status: Unknown if ever smoked Alcohol intake: current Drinks per week: 1 Alcohol use details: occasional social drinker. Substance use: never Lack of Transportation: No Lack of Food: Never True Current Housing: I Have Housing Concerned About Future Housing: No Difficulty Paying Gas/Electric Bills: No Difficulty Paying for Meds: No Currently Unemployed: No Education: Bachelor's Degree Difficulty w/ Childcare or Family Care: No Living arrangements: with family Gender identity (if verbalized by the patient): Male Exam Narrative: GENERAL: Well-appearing, well-nourished, and in no acute distress. HEAD: Normocephalic, atraumatic. ENT: Mucous membranes moist. CHEST: Clear to auscultation. No respiratory distress. HEART: Regular rate and rhythm. Normal peripheral pulses. ABDOMEN: Soft, nontender, nondistended. EXTREMITIES: Normal range of motion. No edema. SKIN: Warm, dry, no rash. NEURO: Alert and oriented x3. PSYCH: Normal mood and affect. Course Course Emergency Course: Doherty placed with 600 mL output. Patient resting comfortably. Informed of results. Discussed case with urology. Patient may continue his cefdinir and they will follow him up in clinic for Doherty removal and voiding trial. Patient and son verbalized understanding of treatment plan. Vital Signs Vital signs: Vital Signs Temperature 98.3 F 09/26/22 06:37 Pulse Rate 96 09/26/22 06:37 Respiratory Rate 14 09/26/22 06:37 Blood Pressure 134/64 09/26/22 06:37 Pulse Oximetry 98 09/26/22 06:37 Temperature 98.3 F 09/26/22 06:37 Pulse Rate 96 09/26/22 06:37 Respiratory Rate 14 09/26/22 06:37 Blood Pressure 134/64 09/26/22 06:37 Pulse Oximetry 98 09/26/22 06:37 MDM - Male Genitourinary Lab Data 09/26/22 08:08 09/26/22 08:08 Labs: Lab Results 09/26/22 09/26/22 09/26/22 Range/Units 08:08 08:08 08:32 WBC 9.7 (4.5-10.0) K/mm3 RBC 3.79 L (4.6-6.20) M/mm3 Hgb 12.1 L (14.0-18.0) g/dL Hct 37.1 L (42.0-52
[2022-09-26 08:44] LABS: Appearance Urine Cloudy (Clear); Bacteria Urine 1+ /hpf; Bilirubin Urine Negative (Negative); Color Urine Yellow (Yellow); Glucose Urine UA Negative (Negative); Ketones Urine 1+ mg/dL (Negative); Leukocyte Esterase Ur 2+ LEU/UL (Negative); Nitrate Urine Positive (Negative); Non Pathogenic Casts 0-2; Protein Urine 1+ mg/dL (Negative); RBC Urine 0-2 /hpf (0-2); Specific Grav Ur 1.021 (1.001-1.035); Squamous Epithelial Cell Urine None seen /hpf (Few); WBC Urine >100 /hpf
[2022-09-26 08:50] LABS: Add Urine Microscopic? YES
[2022-09-26 10:45] VITALS: BP 132/84; PULSE 76; RESP 16; O2SAT 99
== END 2022-09-26 11:02 | disposition home or self-care (01) ==
PROVIDERS: Emergency Provider Emergency Medicine; PCP Family Medicine
DX: N39.0 Urinary tract infection, site not specified (principal); R33.9 Retention of urine, unspecified; M19.90 Unspecified osteoarthritis, unspecified site; I10 Essential (primary) hypertension; K21.9 Gastro-esophageal reflux disease without esophagitis; E03.9 Hypothyroidism, unspecified; G47.30 Sleep apnea, unspecified
CPT/HCPCS: 36415; 51702; 80048; 81001; 85025; 85055; 87086; 87088; 99283

== ENCOUNTER 2023-08-10 12:41 | Emergency (ER) | payer MEDICARE, SELFPAY ==
--- NOTE | ~2023-08-10 | XR_ITS ---
EXAMINATION: XR chest 2V DATE: 08/10/2023 14:07 INDICATION: Weakness TECHNIQUE: PA and lateral views of the chest are obtained. COMPARISON: 09/05/2015 FINDINGS: The lungs are free of acute opacities. No pleural effusion or pneumothorax. The cardiomedia stinal silhouette is normal. There is moderate thoracic spondylosis. IMPRESSION: 1. No acute cardiopulmonary abnormality. Reviewed, dictated and finalized at location [facility]. [facility]
--- NOTE | 2023-08-10 12:43 | ECG_ITS ---
Measurements Intervals [place] Rate: 93 P: 14 CT: 169 QRS: -8 QRSD: 94 T: 82 QT: 325 QTc: 404 Interpretive Statements SINUS RHYTHM INCOMPLETE RIGHT BUNDLE BRANCH BLOCK BORDERLINE ST-T WAVE ABNORMALITY- LAT/HIGH LAT LEADS BASELINE ARTIFACT- I, II, III, AVR, AVL, V5-V6 BORDERLINE ECG COMPARED TO ECG 03/20/2019 09:34:55 [address]IN[address]M NOW PRESENT ST-T WAVE ABNORMALITY NOW PRESENT Electronically Signed On 08-10-2023 12:54:40 RETORT FORKER by Henry Good D.O.
[2023-08-10 12:57] VITALS: BP 167/74; PULSE 95; RESP 16; TEMP 36.8; O2SAT 98
--- NOTE | 2023-08-10 13:47 | ED.WEAKNESS ---
HPI - Weakness General Chief complaint: Weakness <Aldo Farrell APRN - Last Filed: 08/10/23 13:54> Stated complaint: weakness l shoulder pain <Aldo Farrell APRN - Last Filed: 08/10/23 13:54> Time Seen by Provider: 08/10/23 13:45 <Aldo Farrell APRN - Last Filed: 08/10/23 13:54> Focused HPI: Walker is an 82-year-old male patient presenting to the ER today with complaints of general feeling of weakness since yesterday. He reports that he has a history of Parkinson's and spondylosis. States that today he developed some pain in the left side of his chest wall when he is laying on his left shoulder. This prompted him to come into the emergency room for evaluation. Denies any associated shortness of breath. GENERAL: Well-appearing, well-nourished, and in no acute distress. HEAD: Normocephalic, atraumatic. CHEST: Clear to auscultation. No respiratory distress. HEART: Regular rate and rhythm. NEURO: Alert and oriented x3. Patient screened in triage and initial cardiac workup orders placed. Additional care and disposition to be based upon diagnostic testing and treatment. <Aldo Farrell APRN - Last Filed: 08/10/23 13:54> Source: patient <Aldo CHALO Farrell - Last Filed: 08/10/23 13:54> Mode of arrival: ambulatory <Aldo Farrell APRN - Last Filed: 08/10/23 13:54> Limitations: no limitations <Aldo Farrell APRN - Last Filed: 08/10/23 13:54> History of Present Illness HPI Narrative: Patient is an 82-year-old male here with generalized weakness and urinary symptoms. Patient states that he has struggled with intermittent urinary incontinence issues due to his Parkinson's for more than a year. He follows with Dr. Gaming. He notes that over the last 1 week he seems to have had dysuria and increased urinary frequency. He denies any abdominal pain or flank pain. Over the last 3 days he has noticed increased generalized fatigue. Today he reportedly experience some left-sided chest wall pain, denies any this chest pain currently. Denies any shortness of breath. No fever or chills. He does note this is his 3rd or 4th UTI, last was approximately 6 months ago, he is unsure of what antibiotic he was on at that time. No cardiac history. <Kelsea Colby MD - Last Filed: 08/10/23 17:15> Related Data Home medications: Home Medications Medication Instructions Recorded Confirmed aspirin 81 mg chewable tablet 81 mg PO DAILY 12/16/19 08/10/23 carbidopa 25 mg-levodopa 100 mg 1 tablet PO TID 08/17/21 08/10/23 tablet amantadine HCl 100 mg capsule 100 mg PO BID 06/03/22 08/10/23 <Aldo Farrell APRN - Last Filed: 08/10/23 13:54> Allergies/Adverse reactions: Allergies Allergy/AdvReac Type Severity Reaction Status Date / Time No Known Allergies Allergy Verified 08/10/23 15:10 <Aldo Farrell APRN - Last Filed: 08/10/23 13:54> Review of Systems Review of Systems: All systems reviewed & are unremarkable except as noted in HPI and below <Kelsea Colby MD - Last Filed: 08/10/23 17:15> PMFSH Past Medical History Medical History: Medical History Arthritis Benign essential hypertension GERD without esophagitis Hypothyroidism (acquired) Insomnia Obstructive Sleep Apnea-Hypopnea Syndrome Parkinson disease Radiculopathy <Aldo Farrell APRN - Last Filed: 08/10/23 13:54> Surgical History Surgical History: Surgical History Status post cholecystectomy <Aldo Farrell APRN - Last Filed: 08/10/23 13:54> Family History Family History: Family History Father Malignant neoplasm of prostate <Aldo Farrell APRN - Last Filed: 08/10/23 13:54> Social History Social History: Social History (Reviewed 08/10/23 @ 13:52 by Chato
[2023-08-10 14:03] LABS: Basophils Percent Auto 0.2 % (0.2-1.2); Hematocrit 39.1 % (42.0-52.0); Hemoglobin 12.8 g/dL (14.0-18.0); Immature Granulocyte Absolute 0.03 K/mm3 (0.00-0.031); Immature Granulocyte Percent A 0.4 % (0-0.5); Immature Platelet Fraction Pct 3.2 % (0.9-11.2); Lymphocytes Absolute Auto 0.31 K/mm3 (0.9-3.2); Lymphocytes Percent Auto 3.8 % (18.3-44.2); Mean Corpuscular HGB Conc 32.7 g/dl (32-36); Mean Corpuscular Hemoglobin 31.3 pg (26-34); Mean Corpuscular Volume 95.6 fl (80-100); Mean Platelet Volume 10.2 fl (7.4-10.4); Monocytes Absolute Auto 0.2 K/mm3 (0.1-0.6); Monocytes Percent Auto 2.4 % (2.6-8.5); Neutrophils Absolute Auto 7.6 K/mm3 (1.3-6.7); Neutrophils Percent Auto 93.2 % (45.5-73.1); Platelet Count Result 124 k/mm3 (150-375); Red Blood Count 4.09 M/mm3 (4.6-6.20); White Blood Count 8.2 K/mm3 (4.5-10.0)
[2023-08-10 14:13] LABS: Alanine Aminotransferase 7 U/L (6-50); Albumin Level 4.2 g/dL (3.5-5.1); Alkaline Phosphatase 74 U/L (38-126); Anion Gap 3 mmol/L (8-16); Aspartate Amino Transferase 26 U/L (17-59); Bilirubin,Total 1.3 mg/dL (0.2-1.3); Blood Urea Nitrogen 25 mg/dL (9-20); Calcium 9.6 mg/dL (8.4-10.2); Carbon Dioxide 28 mmol/L (22-30); Chloride 105 mmol/L (98-107); Estimated CRCL calculation 51 ml/min; Estimated Glomerular Filt Rate > 60; Glucose 118 mg/dL (65-110); Sodium 136 mmol/L (137-145)
[2023-08-10 14:15] LABS: INR 0.9; Prothrombin Time 12.9 Seconds (11.1-14.7)
[2023-08-10 14:16] LABS: Partial Thromboplastin Time 30.9 SECONDS (22.3-36.8)
[2023-08-10 14:22] LABS: NT Pro B Type Natriuretic Pept 548 pg/mL (19.9-100)
[2023-08-10 15:01] LABS: D Dimer 0.68 ug/mL (<0.48)
[2023-08-10 15:04] LABS: Troponin I < 0.012 ng/mL (0.000-0.034)
[2023-08-10 15:10] VITALS: PULSE 95
[2023-08-10 15:16] VITALS: BP 133/71; PULSE 90; RESP 20; O2SAT 97
[2023-08-10 15:18] VITALS: BP 133/71; PULSE 90; RESP 21; O2SAT 96
[2023-08-10 15:29] LABS: Appearance Urine Cloudy (Clear); Bacteria Urine 4+ /hpf; Bilirubin Urine Negative (Negative); Blood Urine Negative (Negative); Color Urine Yellow (Yellow); Glucose Urine UA Negative (Negative); Ketones Urine 1+ mg/dL (Negative); Leukocyte Esterase Ur 2+ LEU/UL (Negative); Nitrate Urine Positive (Negative); Non Pathogenic Casts 0-2; Protein Urine 1+ mg/dL (Negative); RBC Urine 0-2 /hpf (0-2); Specific Grav Ur 1.023 (1.001-1.035); Squamous Epithelial Cell Urine None seen /hpf (Few); WBC Urine >100 /hpf
[2023-08-10 15:38] LABS: Add Urine Microscopic? YES
--- NOTE | 2023-08-10 15:51 | ED.WEAKNESS ---
HPI - Weakness General Chief complaint: Weakness Stated complaint: weakness l shoulder pain Time Seen by Provider: 08/10/23 13:45 Source: patient Mode of arrival: ambulatory Limitations: no limitations Related Data Home Medications Medication Instructions Recorded Confirmed aspirin 81 mg chewable tablet 81 mg PO DAILY 12/16/19 08/10/23 carbidopa 25 mg-levodopa 100 mg 1 tablet PO TID 08/17/21 08/10/23 tablet amantadine HCl 100 mg capsule 100 mg PO BID 06/03/22 08/10/23 Allergies Allergy/AdvReac Type Severity Reaction Status Date / Time No Known Allergies Allergy Verified 08/10/23 15:10 [facility] Past Medical History Medical History Arthritis Benign essential hypertension GERD without esophagitis Hypothyroidism (acquired) Insomnia Obstructive Sleep Apnea-Hypopnea Syndrome Parkinson disease Radiculopathy Surgical History Surgical History Status post cholecystectomy Family History Family History Father Malignant neoplasm of prostate Social History Social History Smoking status: Never smoker Alcohol intake: current Drinks per week: 1 Alcohol use details: occasional social drinker. Substance use: never Lack of Transportation: No Lack of Food: Never True Current Housing: I Have Housing Concerned About Future Housing: No Difficulty Paying Gas/Electric Bills: No Difficulty Paying for Meds: No Currently Unemployed: No Education: Bachelor's Degree Difficulty w/ Childcare or Family Care: No Living arrangements: with family Gender identity (if verbalized by the patient): Male Course Course Emergency Course: Chart review performed, patient here with increasing weakness since yesterday morning. Reportedly he states that his left shoulder hurts when he lays on it. Triage vitals grossly normal aside from hypertension. Last PCP visit in the system from Dr. Nelson from May 2023. They note that he has a history of urinary incontinence and back pain, follows with pain management. Follows with urology. History of Parkinson's, follows at [facility]. Vital Signs Vital signs: Vital Signs Temperature 98.3 F 08/10/23 12:57 Pulse Rate 95 08/10/23 12:57 Respiratory Rate 16 08/10/23 12:57 Blood Pressure 167/74 H 08/10/23 12:57 Pulse Oximetry 98 08/10/23 12:57 Oxygen Delivery Room Air 08/10/23 12:57 Temperature 98.3 F 08/10/23 12:57 Pulse Rate 90 08/10/23 15:16 Respiratory Rate 20 08/10/23 15:16 Blood Pressure 133/71 08/10/23 15:16 Pulse Oximetry 97 08/10/23 15:16 Oxygen Delivery Room Air 08/10/23 12:57 MDM - Weakness Lab Data 08/10/23 13:54 08/10/23 13:54 Labs: Lab Results 08/10/23 08/10/23 Range/Units 13:54 15:17 WBC 8.2 (4.5-10.0) K/mm3 RBC 4.09 L (4.6-6.20) M/mm3 Hgb 12.8 L (14.0-18.0) g/dL Hct 39.1 L (42.0-52.0) % MCV 95.6 (80-100) fl MCH 31.3 (26-34) pg MCHC 32.7 (32-36) g/dl RDW 13.0 (11.5-14.5) % Plt Count 124 L (150-375) k/mm3 MPV 10.2 (7.4-10.4) fl Immature Gran % (Auto) 0.4 (0-0.5) % Neut % (Auto) 93.2 H (45.5-73.1) % Lymph % (Auto) 3.8 L (18.3-44.2) % Crawford % (Auto) 2.4 L (2.6-8.5) % Eos % (Auto) 0.0 (0-4.4) % Baso % (Auto) 0.2 (0.2-1.2) % Lymph # (Auto) 0.31 L (0.9-3.2) K/mm3 Crawford # (Auto) 0.2 (0.1-0.6) K/mm3 Eos # (Auto) 0.0 (0-0.3) K/mm3 Baso # (Auto) 0.0 (0.0-0.1) K/mm3 Abs Immat Gran (auto) 0.03 (0.00-0.031) K/mm3 Absolute Neuts (auto) 7.6 H (1.3-6.7) K/mm3 Absolute Nucleated RBC 0.0 (0.0-0.012) K/mm3 Nucleated RBC % 0.0 (0.0-0.2) % % Immature Plt Fraction 3.2 (0.9-11.2) % PT 12.9 (11.1-14.7) Seconds INR 0.9 APTT 30.9 (22.3-36.8) SECOND
[2023-08-10 16:00] VITALS: PULSE 78; RESP 20; O2SAT 95
[2023-08-10 16:15] VITALS: PULSE 84; RESP 18; O2SAT 97
== END 2023-08-10 17:32 | disposition home or self-care (01) ==
PROVIDERS: Nurse Practitioner Family; Emergency Provider Student in an Organized Health Care Education/Training Program; PCP Family Medicine
DX: N39.0 Urinary tract infection, site not specified (principal); R07.89 Other chest pain; R53.1 Weakness; G20.A1 Parkinson's disease without dyskinesia, without mention of fluctuations; E03.9 Hypothyroidism, unspecified; I10 Essential (primary) hypertension; Z79.82 Long term (current) use of aspirin; Z79.899 Other long term (current) drug therapy
CPT/HCPCS: 36415; 71046; 80053; 81001; 83880; 84484; 85025; 85055; 85380; 85610; 85730; 87077; 87086; 87088; 87186; 93005; 99284

== ENCOUNTER 2023-08-12 05:27 | Emergency (ER) | payer MEDICARE, SELFPAY ==
[2023-08-12 05:30] VITALS: BP 148/67; PULSE 87; RESP 20; TEMP 36.8; O2SAT 98
[2023-08-12 05:47] VITALS: BP 152/88; PULSE 77; RESP 16; O2SAT 97
--- NOTE | 2023-08-12 06:37 | ED.GENADULT ---
HPI - General Adult General Chief complaint: Urogenital-Male Stated complaint: difficulty urinating Time Seen by Provider: 08/12/23 06:01 History of Present Illness HPI narrative: This is a 2-year-old male presenting with difficulty urinating. Patient was diagnosed with the UTI yesterday. He became unable to pass urine late last night. He is now presenting with abdominal pain fullness. No fever chills nausea vomiting or diarrhea. Related Data Home Medications Medication Instructions Recorded Confirmed aspirin 81 mg chewable tablet 81 mg PO DAILY 12/16/19 08/10/23 carbidopa 25 mg-levodopa 100 mg 1 tablet PO TID 08/17/21 08/10/23 tablet amantadine HCl 100 mg capsule 100 mg PO BID 06/03/22 08/10/23 Allergies Allergy/AdvReac Type Severity Reaction Status Date / Time No Known Allergies Allergy Verified 08/12/23 05:49 [facility] Past Medical History Medical History Arthritis Benign essential hypertension GERD without esophagitis Hypothyroidism (acquired) Insomnia Obstructive Sleep Apnea-Hypopnea Syndrome Parkinson disease Radiculopathy Surgical History Surgical History Status post cholecystectomy Family History Family History Father Malignant neoplasm of prostate Social History Social History Smoking status: Never smoker Alcohol intake: current Drinks per week: 1 Alcohol use details: occasional social drinker. Substance use: never Lack of Transportation: No Lack of Food: Never True Current Housing: I Have Housing Concerned About Future Housing: No Difficulty Paying Gas/Electric Bills: No Difficulty Paying for Meds: No Currently Unemployed: No Education: Bachelor's Degree Difficulty w/ Childcare or Family Care: No Living arrangements: with family Gender identity (if verbalized by the patient): Male Exam Narrative: APPEARANCE: No apparent distress. Head: atraumatic. EYES: EOMI, NOSE: Atraumatic NECK: Trachea midline RESPIRATORY: No increased rate of breathing CARDIOVASCULAR: RRR, ABDOMINAL: Patient was examined after a Doherty catheter was placed his abdomen is soft nontender no guarding rebound. No CVA tenderness MUSCULOSKELETAl: No obvious deformities NEURO: Alert. Moving 4/4 extremities SKIN:: Warm, dry. Normal color PSYCHIATRIC: Normal affect Course Vital Signs Vital signs: Vital Signs Temperature 98.2 F 08/12/23 05:30 Pulse Rate 87 08/12/23 05:30 Respiratory Rate 20 08/12/23 05:30 Blood Pressure 148/67 H 08/12/23 05:30 Pulse Oximetry 98 08/12/23 05:30 Oxygen Delivery Room Air 08/12/23 05:30 Temperature 98.2 F 08/12/23 05:30 Pulse Rate 77 08/12/23 05:47 Respiratory Rate 16 08/12/23 05:47 Blood Pressure 152/88 H 08/12/23 05:47 Pulse Oximetry 97 08/12/23 05:47 Oxygen Delivery Room Air 08/12/23 05:47 Medical Decision Making MDM Narrative Medical decision making narrative: -Course: 82-year-old male presenting with urinary retention due to urinary tract infection. Doherty catheter was placed with relief. Patient is already on antibiotics. Patient be discharged to follow-up with Dr. Gaming -DDX includes but is not limited to: Acute urinary retention, UTI -Shared decision making / Disposition: Discharge Vital Signs Vital Signs: Vital Signs Temperature 98.2 F 08/12/23 05:30 Pulse Rate 87 08/12/23 05:30 Respiratory Rate 20 08/12/23 05:30 Blood Pressure 148/67 H 08/12/23 05:30 Pulse Oximetry 98 08/12/23 05:30 Oxygen Delivery Room Air 08/12/23 05:30 Temperature 98.2 F 08/12/23 05:30 Pulse Rate 77 08/12/23 05:47 Respiratory Rate 16 08/12/23 05:47 Blood Pressure 152/88 H 08/12/23 05:47 Pulse Oximetry 97 08/12/23 05:47 Oxygen Delivery Room Air
[2023-08-12 06:48] VITALS: BP 135/75; PULSE 72; RESP 16; O2SAT 98
== END 2023-08-12 06:50 | disposition home or self-care (01) ==
PROVIDERS: Emergency Provider Emergency Medicine; PCP Family Medicine
DX: N39.0 Urinary tract infection, site not specified (principal); I10 Essential (primary) hypertension; E03.9 Hypothyroidism, unspecified
CPT/HCPCS: 99282

== ENCOUNTER 2024-04-17 07:06 | Emergency (ER) | payer MEDICARE, SELFPAY ==
[2024-04-17 07:06] VITALS: PULSE 66; RESP 20; TEMP 36.4; O2SAT 96
--- NOTE | 2024-04-17 07:42 | PC.NURSE ---
Patient requesting pain medication. this RN explained that I am unable to give the patient any medication until a doctor orders it. provider aware
--- NOTE | 2024-04-17 07:51 | PC.NURSE ---
Patient seen trying to climb out of bed. this RN went to bedside and assisted patient to sit in a chair for comfort. patient states if the doctor doesnt get in her soon im just going to leave . this RN explained to the patient that the provider was busy at this time and he will be in as soon as he can.
--- NOTE | 2024-04-17 08:08 | ED.GENADULT ---
HPI - General Adult General Chief complaint: Back Pain/Injury Stated complaint: back pain x 2 days Time Seen by Provider: 04/17/24 07:33 History of Present Illness HPI narrative: 83 old male presenting emergency department for evaluation for left-sided lower back pain that is consistent with his prior issues with sciatica. Patient states he was working on a ladder a few days ago, he denies IV falls or injuries but states due to his twisting on the ladder that he injured his lower back. Patient states he does have pain that radiates from his lower back down his left leg. Patient does have history of Parkinson's. Patient denies any change in bowel or bladder habits. Related Data Home Medications Medication Instructions Recorded Confirmed aspirin 81 mg chewable tablet 81 mg PO DAILY 12/16/19 04/05/24 carbidopa 25 mg-levodopa 100 mg 1 tablet PO TID 08/17/21 04/05/24 tablet amantadine HCl 100 mg capsule 100 mg PO BID 06/03/22 04/05/24 oxybutynin chloride 5 mg tablet 10 mg PO DAILY 12/19/23 04/05/24 Allergies Allergy/AdvReac Type Severity Reaction Status Date / Time No Known Allergies Allergy Verified 04/17/24 07:42 Review of Systems Review of Systems: All systems reviewed & are unremarkable except as noted in HPI and below PMFSH Past Medical History Medical History Arthritis Benign essential hypertension GERD without esophagitis Hypothyroidism (acquired) Insomnia Obstructive Sleep Apnea-Hypopnea Syndrome Parkinson disease Radiculopathy Surgical History Surgical History Status post cholecystectomy Family History Family History Father Malignant neoplasm of prostate Social History Social History Smoking status: Never smoker Alcohol intake: current Drinks per week: 1 Alcohol use details: occasional social drinker. Substance use: never Lack of Transportation: No Lack of Food: Never True Current Housing: I Have Housing Concerned About Future Housing: No Difficulty Paying Gas/Electric Bills: No Difficulty Paying for Meds: No Currently Unemployed: No Education: Bachelor's Degree Difficulty w/ Childcare or Family Care: No Living arrangements: with family Gender identity (if verbalized by the patient): Male Exam Narrative: APPEARANCE: Well appearing, no pain, no distress, well-nourished. HEAD: normocephalic, atraumatic. EYES: PERRLA/EOMI, conjunctivae clear. NOSE: Normal no drainage EARS:TMS clear with good light reflex. THROAT: Pharynx clear, no exudate. NECK: Supple. No adenopathy, no masses. RESPIRATORY: Airway patent, respirations nonlabored. Clear to auscultation bilaterally, no rales, rhonchi, wheezing. CARDIOVASCULAR: Regular rate and rhythm without murmurs rubs or gallops. ABDOMINAL: Soft, nontender, nondistended, normal bowel sounds MUSCULOSKELETAL: Left lower back tenderness to palpation NEURO: Alert. Cranial nerves II through XII intact. Good gait. Good coordination SKIN: Warm, dry. Normal Color Course Vital Signs Vital signs: Vital Signs Temperature 97.6 F 04/17/24 07:06 Pulse Rate 66 04/17/24 07:06 Respiratory Rate 20 04/17/24 07:06 Pulse Oximetry 96 04/17/24 07:06 Oxygen Delivery Room Air 04/17/24 07:06 Temperature 97.6 F 04/17/24 07:06 Pulse Rate 76 04/17/24 10:51 Respiratory Rate 18 04/17/24 10:51 Blood Pressure 180/97 H 04/17/24 10:51 Pulse Oximetry 98 04/17/24 10:51 Oxygen Delivery Room Air 04/17/24 07:06 Medical Decision Making MDM Narrative Medical decision making narrative: [age] old male presenting to the emergency department for evaluation for lower back pain. Patient states the pain feels similar to his previous sciatica. Patient denies any specific falls or injuries. patient was treated with Flexeril and IV morphine without significant improvement. Patient was also treated with dexamethasone and p.o. Cherry. Patient was discharged home with a Medrol Dosepak and Cherry. Patient was advised to have close follow-up with primary care physician. Differential Diagnosis Differential Diagnosis: Sciatica, lower back pain, muscular strain Vital Signs Vital Signs: Vital Signs Temperature 97.6 F 04/17/24 07:06 Pulse Rate 66 04/17/24 07:06 Respiratory Rate 20 04/17/24 07:06 Pulse Oximetry 96 04/17/24 07:06 Oxygen Delivery Room Air 04/17/24 07:06 Temperature 97.6 F 04/17/24 07:06 Pulse Rate 76 04/17/24 10:51 Respiratory Rate 18 04/17/24 10:51 Blood Pressure 180/97 H 04/17/24 10:51 Pulse Oximetry 98 04/17/24 10:51 Oxygen Delivery Room Air 04/17/24 07:06 Lab Data Lab results reviewed: Yes I reviewed the patient's lab results. Discharge Plan Discharge Clinical Impression: Sciatica Patient Disposition: Home, Self-Care Condition: Stable Instructions: Antibiotic Form, Sciatica (ED) Additional Instructions: Medrol Dosepak as directed. Flexeril for muscle spasm and Cherry as needed for pain control. Have close follow-up with your primary care physician. If you have any worsening symptoms then please call or return to the emergency department. Prescriptions: New hydrocodone-acetaminophen 5-325 mg tablet 1 tablet PO Q12H PRN (Reason: pain) Qty: 14 0RF methylprednisolone [Medrol (Pantera)] 4 mg tablets,dose pack See Rx Instructions .ROUTE .COMPLEX Qty: 21 0RF Rx Instructions: for 6 days cyclobenzaprine 10 mg tablet 10 mg PO BID PRN (Reason: muscle spasm) Qty: 14 0RF No Action carbidopa-levodopa 25-100 mg tablet 1 tablet PO TID amantadine HCl 100 mg capsule 100 mg PO BID lisinopril 20 mg tablet 20 mg PO DAILY Qty: 1 0RF oxybutynin chloride 5 mg tablet 10 mg PO DAILY aspirin 81 mg Tablet,Chewable 81 mg PO DAILY amlodipine 5 mg tablet 5 mg PO DAILY Qty: 90 2RF trazodone 50 mg tablet 50 mg PO QHS PRN (Reason: insomnia) Qty: 90 1RF omeprazole 20 mg capsule,delayed release(DR/EC) 20 mg PO DAILY Qty: 90 1RF tamsulosin 0.4 mg capsule 0.4 mg PO DAILY Qty: 90 0RF levothyroxine 50 mcg tablet 50 mcg PO DAILY Qty: 90 1RF Rx Instructions: take 1 tablet by mouth every day; Follow-up/Referrals: Andrew Nelson DO [Primary Care Provider] -
[2024-04-17] MEDS: MORPHINE SULFATE (*CRX) 2 MG/ML INJ IV PUSH (08:13)
[2024-04-17 08:30] VITALS: BP 158/74; PULSE 61; RESP 18; O2SAT 99
[2024-04-17] MEDS: CYCLOBENZAPRINE HCL 10 MG TABLET PO (08:35)
[2024-04-17 09:00] VITALS: BP 189/90; PULSE 63; RESP 16; O2SAT 100
--- NOTE | 2024-04-17 09:26 | PC.NURSE ---
patient assisted with use of urinal
[2024-04-17] MEDS: dexAMETHasone SOD PHOS INJ 10 MG/ML 1 ML VIAL IM (10:43)
[2024-04-17] MEDS: HYDROcodone/acetaminophen (*CRX) 5-325 MG TABLET 1 TAB PO (10:43)
[2024-04-17 10:51] VITALS: BP 180/97; PULSE 76; RESP 18; O2SAT 98
== END 2024-04-17 10:55 | disposition home or self-care (01) ==
PROVIDERS: Emergency Provider Emergency Medicine; PCP Family Medicine
DX: M54.42 Lumbago with sciatica, left side (principal); I10 Essential (primary) hypertension; E03.9 Hypothyroidism, unspecified; G47.33 Obstructive sleep apnea (adult) (pediatric); G20.A1 Parkinson's disease without dyskinesia, without mention of fluctuations; K21.9 Gastro-esophageal reflux disease without esophagitis; Z90.49 Acquired absence of other specified parts of digestive tract; Z79.899 Other long term (current) drug therapy; Z79.82 Long term (current) use of aspirin
CPT/HCPCS: 96372; 96374; 99284; A9270; J1100; J2270

== ENCOUNTER 2024-05-24 09:34 | Outpatient (CLI) | payer MEDICARE, SELFPAY ==
--- NOTE | ~2024-05-24 | MR_ITS ---
MRI of the lumbar spine Clinical History: Degenerative disc disease Technique: Axial T2-weighted images, and sagittal T1-weighted, T2-weighted, and and T2 fat-sat images were acquired. COMPARISON: 10/08/2021 Findings: Bilateral L5 pars interarticularis defects are again present, with 8 mm anterolisthesis of L5 over S1. There is minimal grade 1 retrolisthesis of L1 over L2. There is 3 mm retrolisthesis of L2 over L3. There is 3 mm retrolisthesis of L3 over L4. No suspicious bone marrow signal abnormality se en. At L1-L2, there is advanced degenerative disc narrowing. There is diffuse disc bulge, especially the left foraminal region, with advanced facet arthropathy. No central canal stenosis. There is moderate to advanced left neural foraminal narrowing. There is moderate right neural foraminal narrowing. At L2-L3, there is advanced degenerative disc narrowing. There is diffuse disc bulge with advanced fa cet arthropathy. Prior posterior decompression. No marty spinal canal stenosis. There is severe bilat eral neural foraminal narrowing, right worse than left. L3-L4, there is advanced degenerative disc narrowing. There is diffuse disc bulge with advanced facet arthropathy and prior posterior decompression. No spinal canal stenosis. There is severe bilateral n eural foraminal narrowing. At L4-L5, there is diffuse disc bulge and moderate to advanced facet arthropathy. Posterior decompression. There is severe bilateral neural foraminal narrowing. No canal stenosis. At L5-S1, there is severe degenerative disc narrowing and severe facet arthropathy with diffuse disc bulge. No marty central canal stenosis. There is severe bilateral neural foraminal narrowing. Paravertebral soft tissues are unremarkable. Impression: Severe degenerative spondylosis throughout the lumbar spine, with multilevel severe neural foraminal narrowing. Multilevel prior posterior decompression noted. Bilateral L5 pars interarticularis defects, with 8 mm anterolisthesis of L5 over S1. Grade 1 retrolisthesis of L1 over L2, of L2 over L3, and L3 over L4, as detailed above. Reviewed, dictated and finalized at [facility] M. NG LINE INSPECTOR Impression: Severe degenerative spondylosis throughout the lumbar spine, with multilevel se adama neural foraminal narrowing. Multilevel prior posterior decompression noted . Bilateral L5 pars interarticularis defects, with 8 mm anterolisthesis of L5 ove r S1. Grade 1 retrolisthesis of L1 over L2, of L2 over L3, and L3 over L4, as detaile d above.
--- NOTE | ~2024-05-24 | XR_ITS ---
EXAMINATION: XR lumbar spine min 4V DATE: 05/24/2024 10:36 INDICATION: Degenerative lumbar disc disease. TECHNIQUE: 4 views of lumbar spine including standing views and flexion and extension views were obta ined. COMPARISON: Lumbar spine MRI 05/2624 FINDINGS: There is 15 degrees levoscoliosis of lumbar spine. There is 3 mm retrolisthesis of L1 on L2 , L2 on L3, and L3 on L4. There is 8 mm anterolisthesis of L5 on S1. There are chronic bilateral L5 p ars defects. Vertebral body heights are normal. There is moderately decreased disc height at L1-L2 an d L2-L3, severely decreased disc height at L3-L4, moderately decreased disc height at L4-L5, and ben rely decreased disc height at L5-S1. Surgical clips in the right upper quadrant are likely from galindo cystectomy. IMPRESSION: 1. Severe lumbar spondylosis. 2. Lumbar levoscoliosis. 3. Chronic bilateral L5 pars defects with grade 2 anterolisthesis of L5 on S1. Reviewed, dictated and finalized at location A. L OPERATOR PNEUMATIC
== END 2024-05-24 09:35 | disposition home or self-care (01) ==
PROVIDERS: PCP Family Medicine
DX: M51.369 Other intervertebral disc degeneration, lumbar region without mention of lumbar back pain or lower extremity pain (principal); M47.896 Other spondylosis, lumbar region
CPT/HCPCS: 72110; 72148

== ENCOUNTER 2024-06-19 13:20 | Outpatient (CLI) | payer MEDICARE, SELFPAY ==
[2024-06-19 15:07] LABS: Basophils Percent Auto 0.4 % (0.2-1.2); Eosinophils Absolute Auto 0.1 K/mm3 (0-0.3); Eosinophils Percent Auto 1.8 % (0-4.4); Hematocrit 39.6 % (42.0-52.0); Hemoglobin 12.9 g/dL (14.0-18.0); Immature Granulocyte Absolute 0.01 K/mm3 (0.00-0.031); Immature Granulocyte Percent A 0.2 % (0-0.5); Lymphocytes Absolute Auto 1.61 K/mm3 (0.9-3.2); Lymphocytes Percent Auto 31.7 % (18.3-44.2); Mean Corpuscular HGB Conc 32.6 g/dl (32-36); Mean Corpuscular Hemoglobin 31.7 pg (26-34); Mean Corpuscular Volume 97.3 fl (80-100); Mean Platelet Volume 10.2 fl (7.4-10.4); Monocytes Absolute Auto 0.3 K/mm3 (0.1-0.6); Monocytes Percent Auto 6.1 % (2.6-8.5); Neutrophils Percent Auto 59.8 % (45.5-73.1); Platelet Count Result 190 k/mm3 (150-375); Red Blood Count 4.07 M/mm3 (4.6-6.20); Red Cell Distribution Width 14.2 % (11.5-14.5); White Blood Count 5.1 K/mm3 (4.5-10.0)
[2024-06-19 15:16] LABS: Add Urine Microscopic? YES; Appearance Urine Cloudy (Clear); Bacteria Urine 4+ /hpf; Bilirubin Urine Negative (Negative); Blood Urine Negative (Negative); Color Urine Yellow (Yellow); Glucose Urine UA Negative (Negative); Ketones Urine Negative (Negative); Leukocyte Esterase Ur 2+ LEU/UL (Negative); Nitrate Urine Positive (Negative); Non Pathogenic Casts 0-2; Protein Urine Negative (Negative); RBC Urine 0-2 /hpf (0-2); Specific Grav Ur 1.019 (1.001-1.035); Squamous Epithelial Cell Urine None Seen /hpf (Few); Urobilinogen Urine 0.2 mg/dL (<2.0); WBC Urine 51-100 /hpf (0-3); pH Urine 5.5 (5.0-9.0)
[2024-06-19 16:32] LABS: Alanine Aminotransferase 9 U/L (6-50); Albumin Level 4.2 g/dL (3.5-5.1); Alkaline Phosphatase 84 U/L (38-126); Anion Gap 5 mmol/L (4-12); Aspartate Amino Transferase 44 U/L (17-59); Bilirubin,Total 0.7 mg/dL (0.2-1.3); Blood Urea Nitrogen 32 mg/dL (9-20); Calcium 9.6 mg/dL (8.4-10.2); Carbon Dioxide 30 mmol/L (22-30); Chloride 103 mmol/L (98-107); Cholesterol 171 mg/dL (0-200); Estimated Glomerular Filt Rate > 60; Glucose 99 mg/dL (65-110); HDL Direct 66 mg/dL; Potassium 4.2 mmol/L (3.4-5.0); Sodium 138 mmol/L (137-145); Triglycerides 67 mg/dL (<150)
[2024-06-19 16:56] LABS: LDL Cholesterol Direct 76 mg/dL
[2024-06-19 17:12] LABS: Free T4 Free Thyroxine 1.08 ng/dL (0.78-2.19); Vitamin D 25 Hydroxy 20.8 ng/mL
[2024-06-19 17:36] LABS: Folic Acid 11.5 ng/mL (2.76->20)
[2024-06-19 19:39] LABS: Hemoglobin A1C 5.4 % (<5.7)
[2024-06-20 11:42] LABS: Iron 81 ug/dL (49-181)
[2024-06-20 11:56] LABS: Percent Iron Saturation 27 % (20-50)
== END 2024-06-19 13:21 | disposition home or self-care (01) ==
LOC: ANHGOSHLAB 13:21
PROVIDERS: PCP Emergency Medicine; Visit Provider Internal Medicine
DX: I10 Essential (primary) hypertension (principal); E03.9 Hypothyroidism, unspecified; Z79.899 Other long term (current) drug therapy; Z13.1 Encounter for screening for diabetes mellitus; E55.9 Vitamin D deficiency, unspecified; G62.9 Polyneuropathy, unspecified; E53.9 Vitamin B deficiency, unspecified; Z13.220 Encounter for screening for lipoid disorders; D64.9 Anemia, unspecified
CPT/HCPCS: 36415; 80053; 80061; 81001; 82306; 82607; 82728; 82746; 83036; 83540; 83550; 84439; 84443; 85025; 87077; 87086; 87186

== ENCOUNTER 2024-07-03 13:27 | Outpatient (CLI) | payer MEDICARE, SELFPAY ==
--- OUTSIDE RECORDS SUMMARY | 2024-07-03 14:18 | XMS_ITS | Patient Health Summary ---
Author Organization [facility] Address [address] [place] [address] Care Team Providers Care Production Sanitizer Name Role Phone Cj Richards MD Primary Care Provider [phone] Note from [facility],non-owned Affiliates and Associated Physician Practices is amultiple site organization consisting of ambulatory clinics and hospital sitesin [place], [place], [place] and [place]. This disclosure is being madepursuant to the Care Everywhere program and may not contain all information available regarding this patient. Last updated 18.[facility] Allergies No known active allergies Medications * Be aware that medications may not be up to date on this document. Alwaysverify current medications with the patient. * omeprazole (PRILOSEC) 20 MG capsule(Started 01/29/2020) Take 1 (one) capsule by mouth once daily * tamsulosin (FLOMAX) 0.4 MG capsule(Started 01/29/2020) TAKE 1 CAPSULE BY MOUTH EVERY DAY 1/2 HOUR FOLLOWING SAME MEAL EACH DAY * lisinopril (PRINIVIL; ZESTRIL) 10 MG tablet(Started 12/13/2019) Take 1 (one) tablet by mouth once daily * levothyroxine (SYNTHROID) 50 MCG tablet(Started 12/13/2019) Take 1 (one) tablet by mouth once daily * ticagrelor (Brilinta) 60 MG tablet Take 1 (one) tablet by mouth 2 times daily Swallow whole. Do not crush, chew, or open capsule. * amLODIPine (Norvasc) 5 MG tablet Take 1 (one) tablet by mouth once daily * amantadine (Symmetrel) 100 MG capsule Take by mouth once daily * oxyBUTYnin CR 24hr (Ditropan-XL) 10 MG tablet Take 1 (one) tablet by mouth once daily * traZODone (Desyrel) 50 MG tablet(Started 03/09/2023) 50 MG ORALLY EVERY DAY AT BEDTIME NEEDED FOR INSOMNIA * aspirin (Aspirin) 81 MG chew tablet * gabapentin (Neurontin) 300 MG capsule(Started 09/07/2021) Take 1 (one) capsule by mouth * naproxen (Naprosyn) 500 MG tablet(Started 09/07/2021) Take 1 (one) tablet by mouth 2 times daily * carbidopa-levodopa (Sinemet) 25-100 MG tablet(Started 05/20/2024) TAKE 1.5 (ONE AND ONE-HALF) TABLETS BY MOUTH 4 TIMES DAILY REASONS: PARKINSON'S DISEASE 5 refills by 05/20/2025 Active Problems Problem Noted Date Diagnosed Date Degeneration of intervertebral disc of lumbar re gion 09/20/2023 09/20/2023 Parkinson's disease 09/20/2023 09/20/2023 Pars defect of lumbar spine 09/20/202309/03 Spondylolisthesis of lumbar region 09/20/2023 09/20/2023 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 09/20/2023 Lumbar stenosis with neurogenic claudication 09/20/2023 Pulmonary hypertension 01/07/2020 Non-rheumatic aortic regurgitation 11/26/2019 09/20/2023 Abnormal EKG 10/14/2019 09/20/2023 Chest tightness 10/14/2019 09/20/2023 RONDON (dyspnea on exertion) 10/14/20192023 Gastroesophageal reflux disease 10/14/2019 09/20/2023 Palpitations 10/14/2019 09/20/2023 Postural dizziness with near syncope 10/14/2019 09/20/2023 PVC (premature ventricular contraction) 10/14/1909/20/2023 Encounter for examination following surgery 10/0409/20/2023 History of laser assisted in situ keratomileusis 03/29/2016 09/20/2023 Cystoid macular edema 03/02/2015 09/20/2023 Atrial fibrillation with RVR 02/28/2015 Benign hypertension 02/28/2015 09/20/2023 Hyperthyroidism 02/28/2015 09/20/2023 Benign neoplasm of choroid 08/26/201409/19 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 (AFLURIA, FLUZONE TRIVALENT; 6MO+) (IIV3)(Given 02/04/2015) * INFLUENZA VACCINE, ADJUVANTED, QUADR. (FLUAD QUADRIVALENT; 65Y+) (AIIV4)(Given 02/11/2020) * Zoster Hzv Vacc Recombinant Inj Im(Given 04/27/2019, 02/18/2019) Social History Tobacco Use Types Packs/Day Years Used Date Smoking Tobacco: Never Smokeless Tobacco: Never Alcohol Use Standard Drinks/Week Comments Not Asked 0 (1 standard drink = 0.6 oz pur e alcohol) PHQ-2 Answer Date Recorded PHQ2 TOTAL SCORE 0 09/08/2022 Sex and Gender Information Value Date Recorded Sex Assigned at Not on file Gender Identity Not on file Sexual Orientation Not on file Last Filed Vital Signs Vital Sign Reading Time Taken Comments Blood Pressure 164/95 09/20/2023 10:12 AM CDT Pulse 67 09/20/2023 10:12 AM CDT Temperature 36.8 ??C (98.3 ??F) 03/21/2023 12:43 PM C DT Respiratory Rate 16 03/21/2023 12:43 PM CDT Oxygen Saturation 95% 09/20/2023 10:12 AM CDT Inhaled Oxygen Concentration - - Weight 78.7 kg (173 lb 8 oz) 09/20/2023 10:12 AM CDT Height 172.7 cm (5' 8 ) 09/20/2023 10:12 AM CDT Body Mass Index 26.38 09/20/2023 10:12 AM CDT Procedures * XR PELVIS W RIGHT HIP 2VW(Performed 10/13/2021) Performed for Right hip pain * CARDIAC EKG ORDER(Performed 06/03/2020) * XR CERVICAL SPINE 2 OR 3VW(Performed 05/25/2020) Performed for Pre-operative clearance, Upper extremity weakness * CT CERVICAL SPINE WO CONTRAST(Performed 05/25/2020) Performed for Back pain, unspecified back location, unspecified back pain laterality, unspecified chronicity * NM MYOCARD PERF REST STRESS(Performed 05/25/2020) Performed for Back pain, unspecified back location, unspecified back pain laterality, unspecified chronicity, Pre-operative clearance * XR SPINE ENTIRE 2 OR 3VW(Performed 05/11/2020) Performed for Back pain, unspecified back location, unspecified back pain laterality, unspecified chronicity * MRI LUMBAR SPINE WO CONTRAST(Performed 04/18/2020) Performed for Hyperreflexia, Upper extremity weakness, Weakness of both lower extremities, Lumbar radiculopathy, Cervical radiculopathy * MRI CERVICAL SPINE WO CONTRAST(Performed 04/18/2020) Performed for Hyperreflexia, Upper extremity weakness, Weakness of both lower extremities, Lumbar radiculopathy, Cervical radiculopathy * XR LUMBAR SPINE 2 OR 3VW(Performed 02/07/2020) Performed for Low back pain, unspecified back pain laterality, unspecified chronicity, unspecified whether sciatica present * DERMATOPATH TECHNICAL REPORT(Performed 11/05/2019) * DERMATOPATHOLOGY(Performed 10/23/2018) Results * XR PELVIS W RIGHT HIP 2VW (10/13/2021 10:08 AM CDT) Anatomical Region Laterality Modality Pelvis Radiographic Ibis ging 10/15/2021 1:58 PM CDT Impressions 10/15/2021 2:16 PM CDT DEGENERATIVE CHANGES. Edited by Amber Dumont on 10/15/2021 2:12 PM *Reading Radiologist: Robert Mirza on 10/15/2021 at 2:16 PM Narrative 10/15/2021 2:16 PM CDT PELVIS AP VIEW AND RIGHT HIP 2 VIEWS INDICATION: Pain in right hip. FINDINGS: Frontal view of the pelvis and two views of the right hip show joint space narrowing of both hips. There is no acute fracture, subluxation, or dislocation. Procedure Note Robert Mirza MD - 10/15/2021 PELVIS AP VIEW AND RIGHT HIP 2 VIEWS INDICATION: Pain in right hip. FINDINGS: Frontal view of the pelvis and two views of the right hip show joint space narrowing of both hips. There is no acute fracture, subluxation, or dislocation. IMPRESSION DEGENERATIVE CHANGES. Edited by Amber Dumont on 10/15/2021 2:12 PM *Reading Radiologist: Robert Mirza on 10/15/2021 at 2:16 PM Bry Cuellar MD DIAGNOSTIC IMAGING ORDERABLES * CARDIAC EKG ORDER (06/03/2020 3:22 PM COMMERCIAL LOAN ANALYST) Narrative 06/03/2020 3:22 PM COMMERCIAL LOAN ANALYST Ordered by an unspecified provider. Scanned Document CARDIAC SERVICES ORD ERABLES * XR CERVICAL SPINE 2 OR 3VW (05/25/2020 1:49 PM COMMERCIAL LOAN ANALYST) Anatomical Region Laterality Modality Spine Radiographic Ibis ging 05/25/2020 1:48 PM COMMERCIAL LOAN ANALYST Impressions 05/25/2020 1:50 PM COMMERCIAL LOAN ANALYST IMPRESSION: Moderate cervical spondylosis. This report was electronically signed by GERBER NAZARIO MD ??on 05/25/2020 1:50 PM . Narrative 05/25/2020 1:50 PM COMMERCIAL LOAN ANALYST Exam: ??XR CERVICAL SPINE 2 VW History: ??Z01.818: Pre-operative clearance R29.898: Upper extremity weakness Comparison: None. Findings: The cervical lordosis is normal. There is no fracture or subluxation. There is moderate multilevel degenerative change, greatest at C5-6. The inferior aspect of C7 is partly obscured by the shoulders on the lateral view. Procedure Note Gerber Nazario MD - 05/25/2020 Exam: XR CERVICAL SPINE 2 VW History: Z01.818: Pre-operative clearance R29.898: Upper extremity weakness Comparison: None. Findings: The cervical lordosis is normal. There is no fracture or subluxation. There is moderate multilevel degenerative change, greatest at C5-6. The inferior aspect of C7 is partly obscured by the shoulders on the lateral view. IMPRESSION: Moderate cervical spondylosis. This report was electronically signed by GERBER NAZARIO MD on 05/25/2020 1:50 PM . Kenia Mccormick MD DIAGNOSTIC IMAGING O RDERABLES * CT CERVICAL SPINE WO CONTRAST (05/25/2020 1:04 PM COMMERCIAL LOAN ANALYST) Anatomical Region Laterality Modality Spine Computed Tomogra phy 05/25/2020 1:27 PM COMMERCIAL LOAN ANALYST Impressions 05/25/2020 1:36 PM COMMERCIAL LOAN ANALYST IMPRESSION: 1.No acute osseous abnormality. 2.Multilevel degenerative changes with moderate spinal canal stenosis at C3-4 and C5-6. Apparent cord compression at these levels. 3.Moderate to severe foraminal stenoses at bilateral C3-4, left C4-5 and right C5-6. This report was electronically signed by DAISY CURRY ??on 05/25/2020 1:36 PM . Narrative 05/25/2020 1:[address] scan of the cervical spine without intravenous contrast INDICATION: Back pain COMPARISON: MRI of the cervical spine from 04/18/2020 was reviewed. TECHNIQUE: CT scan of the cervical spine was performed without intravenous contrast ordering to standard protocol. FINDINGS: The cervical lordosis is maintained. There is no subluxation. There is generalized osseous mineralization without aggressive appearing osseous lesions. There is likely an osseous hemangioma in the C4 vertebral body. Other than degenerative remodeling, the vertebrae are normal in height. The prevertebral and paraspinal soft tissues are within normal limits. Multilevel degenerative changes are seen, as described below: C1-2: Ligamentous thickening/calcification and osseous hypertrophy at the atlantodental articulation. No significant spinal canal stenosis. C2-3: Mild disc bulge. No uncovertebral hypertrophy. Mild left facet hypertrophy. Mild spinal canal stenosis. No significant foraminal stenosis. C3-4: Mild loss of disc space height. Disc ridge complex with superimposed central disc protrusion. Severe left and moderate height uncovertebral hypertrophy. Mild bilateral facet degenerative changes. Moderate spinal canal stenosis and apparent spinal cord compression. Moderate right and severe left foraminal stenosis. C4-5: No loss of disc space height. Mild disc bulge. No significant uncovertebral hypertrophy. Moderate left and mild right facet hypertrophy. Mild spinal canal narrowing without cord compression. Mild right and moderate left foraminal stenosis. C5-6: Near-complete loss of disc space height with significant endplate erosive changes particularly on the right. Significant right uncovertebral hypertrophy. Mild bilateral facet hypertrophy. Moderate spinal canal stenosis with likely spinal cord compression. Moderate right and mild left foraminal stenosis. C6-7: Mild loss of disc space height. Disc bulge with minor uncovertebral and facet degenerative changes. Mild spinal canal stenosis. Mild mild bilateral foraminal stenosis. C7-T1: No focal disc herniation, uncovertebral or facet hypertrophy. No spinal canal or foraminal stenosis. 2.2 cm hypodense right thyroid nodule is seen with marginal calcifications. Procedure Note Daisy Curry MD - 05/25/2020 CT scan of the cervical spine without intravenous contrast INDICATION: Back pain COMPARISON: MRI of the cervical spine from 04/18/2020 was reviewed. TECHNIQUE: CT scan of the cervical spine was performed withoutintravenous contrast ordering to standard protocol. FINDINGS: The cervical lordosis is maintained. There is no subluxation. There is generalized osseous mineralization without aggressive appearing osseous lesions. There is likely an osseous hemangioma in the C4 vertebral body. Other than degenerative remodeling, the vertebrae are normal in height. The prevertebral and paraspinal soft tissues are within normal limits. Multilevel degenerative changes are seen, as described below: C1-2: Ligamentous thickening/calcification and osseous hypertrophy atthe atlantodental articulation. No significant spinal canal stenosis. C2-3: Mild disc bulge. No uncovertebral hypertrophy. Mild left facet hypertrophy. Mild spinal canal stenosis. No significant foraminal stenosis. C3-4: Mild loss of disc space height. Disc ridge complex withsuperimposed central disc protrusion. Severe left and moderate height uncovertebral hypertrophy. Mild bilateral facet degenerative changes. Moderate spinal canal stenosis and apparent spinal cord compression. Moderate right and severe left foraminal stenosis. C4-5: No loss of disc space height. Mild disc bulge. No significant uncovertebral hypertrophy. Moderate left and mild right facethypertrophy. Mild spinal canal narrowing without cord compression. Mild right and moderate left foraminal stenosis. C5-6: Near-complete loss of disc space height with significant endplate erosive changes particularly on the right. Significant rightuncovertebral hypertrophy. Mild bilateral facet hypertrophy. Moderate spinal canal stenosis with likely spinal cord compression. Moderate right and mildleft foraminal stenosis. C6-7: Mild loss of disc space height. Disc bulge with minoruncovertebral and facet degenerative changes. Mild spinal canal stenosis. Mild mild bilateral foraminal stenosis. C7-T1: No focal disc herniation, uncovertebral or facet hypertrophy. No spinal canal or foraminal stenosis. 2.2 cm hypodense right thyroid nodule is seen with marginalcalcifications. IMPRESSION: 1.No acute osseous abnormality. 2.Multilevel degenerative changes with moderate spinal canal stenosis at C3-4 and C5-6. Apparent cord compression at these levels. 3.Moderate to severe foraminal stenoses at bilateral C3-4, left C4-5 and right C5-6. This report was electronically signed by DAISY CURRY on 05/25/2020 1:36 PM . Caesar Granados MD CT ORDERABLES * NM MYOCARD PERF REST STRESS (05/25/2020 11:59 AM COMMERCIAL LOAN ANALYST) Anatomical Region Laterality Modality Chest Nuclear Medicine 05/25/2020 1:46 PM COMMERCIAL LOAN ANALYST Impressions 05/25/2020 6:25 PM COMMERCIAL LOAN ANALYST IMPRESSION: 1. No evidence of myocardial infarction or stress-induced ischemia. 2. Normal left ventricular thickening. 3. Mild global hypokinesis with calculated left ventricular ejection fraction of 42%. Dictated by Libia Forde MD (Nuclear Medicine resident). This report was approved ??by Libia Forde ?? on 05/25/2020 4:32 PM . I, Dr. MAR PALACIOS M.D. have personally reviewed and interpreted this examination/study. This report was electronically signed by MAR PALACIOS M.D. ??on 05/25/2020 6:25 PM . Narrative 05/25/2020 6:25 PM COMMERCIAL LOAN ANALYST STUDY: Rest and Pharmacologic stress SPECT/CT myocardial imaging with gating- one day protocol HISTORY: 79-year-old male with no significant past medical history who will undergo surgical intervention for spinal stenosis. Patient's BMI 26.78 kg/m2. COMPARISON: No prior study is available for comparison. Prior [facility] SPECT report dated 10/31/2019 was reviewed. PROCEDURE: The rest intravenous injection of 8.8 mCi of Tc-99m Myoview was administered IV in the left antecubital fossa. Myocardial perfusion imaging was performed 30 minutes post-injection. Preliminary rest EKG demonstrated no evidence of ischemic changes. At the conclusion of the rest imaging, pharmacologic stress testing was performed with 0.4 mg of Regadenoson administered IV in the left antecubital fossa over 10 seconds. No low-level exercise was performed in conjunction with the vasodilator infusion. The patient experienced no chest pain. Preliminary stress ECG demonstrated no evidence of ischemic changes. After approximately 10 seconds, the patient was injected with 24.4 mCi of Tc-99m Myoview IV in the left antecubital fossa. Gated SPECT/CT myocardial perfusion imaging was performed 30 minutes post-injection. Low-dose noncontrast CT of the region of the heart was performed for attenuation correction only. The heart rate at rest was 59 bpm at baseline and increased to T6 bpm during the vasodilator infusion. The BP was 145/72 mmHg at rest and 153/50 mmHg after the stress procedure. A separate ECG report will be read by Cardiology. FINDINGS: The image quality is technically adequate for interpretation. However, evaluation of inferolateral wall is somewhat limited due to significant adjacent bowel activity. In the stress and rest SPECT/CT images, the left ventricle is normal in size. The stress SPECT/CT images show a normal pattern of myocardial perfusion. ??There is no significant change in the perfusion pattern at rest. Gated SPECT/CT images show mild global hypokinesis with normal myocardial thickening. The calculated left ventricular ejection fraction is 42%, previously reported to be 50%. The CT portion of the SPECT-CT showed coronary artery calcifications, surgical clips in the gallbladder bed likely indicative of prior cholecystectomy, prominent left adrenal gland and degenerative changes in the thoracic spine. Procedure Note Mar Palacios MD - 05/25/2020 STUDY: Rest and Pharmacologic stress SPECT/CT myocardial imaging with gating- one day protocol HISTORY: 79-year-old male with no significant past medical history who will undergo surgical intervention for spinal stenosis. Patient's BMI 26.78 kg/m2. COMPARISON: No prior study is available for comparison. Prior [facility] SPECT report dated 10/31/2019 was reviewed. PROCEDURE: The rest intravenous injection of 8.8 mCi of Tc-99m Myoview was administered IV in the left antecubital fossa. Myocardial perfusion imaging was performed 30 minutes post-injection. Preliminary rest EKG demonstrated no evidence of ischemic changes. At the conclusion of the rest imaging, pharmacologic stress testing was performed with 0.4 mg of Regadenoson administered IV in the left antecubital fossa over 10seconds. No low-level exercise was performed in conjunction with the vasodilator infusion. The patient experienced no chest pain. Preliminary stress ECG demonstrated no evidence of ischemic changes. After approximately 10 seconds, the patient was injected with 24.4 mCi of Tc-99m Myoview IV in the left antecubital fossa. Gated SPECT/CT myocardial perfusion imaging was performed 30 minutes post-injection. Low-dose noncontrast CT of the region of the heart was performed for attenuation correction only. The heart rate at rest was 59 bpm at baseline and increased to T6 bpm during the vasodilator infusion. The BP was 145/72 mmHg at rest iuf813/50 mmHg after the stress procedure. A separate ECG report will be read by Cardiology. FINDINGS: The image quality is technically adequate for interpretation. However, evaluation of inferolateral wall is somewhat limited due to significant adjacent bowel activity. In the stress and rest SPECT/CT images, theleft ventricle is normal in size. The stress SPECT/CT images show a normal pattern of myocardial perfusion. There is no significant change in the perfusion pattern at rest. Gated SPECT/CT images show mild global hypokinesis with normalmyocardial thickening. The calculated left ventricular ejection fraction is 42%, previously reported to be 50%. The CT portion of the SPECT-CT showed coronary artery calcifications, surgical clips in the gallbladder bed likely indicative of prior cholecystectomy, prominent left adrenal gland and degenerative changesin the thoracic spine. IMPRESSION: 1. No evidence of myocardial infarction or stress-induced ischemia. 2. Normal left ventricular thickening. 3. Mild global hypokinesis with calculated left ventricular ejection fraction of 42%. Dictated by Libia Forde MD (Nuclear Medicine resident). This report was approved by Libia Forde on 05/25/2020 4:32 PM . I, Dr. MAR PALACIOS M.D. have personally reviewed and interpreted this examination/study. This report was electronically signed by MAR PALACIOS M.D. on05/25/2020 6:25 PM . Kenia Mccormick MD NM ORDERABLES * XR SPINE ENTIRE 2 OR 3VW (05/11/2020 11:27 AM COMMERCIAL LOAN ANALYST) Anatomical Region Laterality Modality Spine Radiographic Ibis ging 05/11/2020 11:4 8 AM COMMERCIAL LOAN ANALYST Impressions 05/11/2020 12:09 PM COMMERCIAL LOAN ANALYST IMPRESSION: 1.Grade 1 anterolisthesis of L5 on S1. 2.Moderate degenerative disc disease. Report dictated by Yonny Jauregui MD (vice president risk management). I, Dr. PETRONA MATSON have personally reviewed and interpreted this examination/study. This report was electronically signed by PETRONA MATSON ??on 05/11/2020 12:09 PM . Narrative 05/11/2020 12:09 PM COMMERCIAL LOAN ANALYST EXAMINATION: XR SPINE ENTIRE 2 OR 3VW HISTORY: M54.9: Back pain, unspecified back location, unspecified back pain laterality, unspecified chronicity COMPARISON: MRI cervical and lumbar spine 04/18/2020, lumbar spine radiographs 02/07/2020 FINDINGS: There is mild thoracolumbar scoliosis. No evidence of acute fracture. There is grade 1 anterolisthesis of L5 on S1. Vertebral alignment is otherwise maintained. There are moderate multilevel chronic degenerative changes. Neutral truncal balance. No pelvic tilt. Procedure Note Petrona Matson MD - 05/11/2020 EXAMINATION: XR SPINE ENTIRE 2 OR 3VW HISTORY: M54.9: Back pain, unspecified back location, unspecified back pain laterality, unspecified chronicity COMPARISON: MRI cervical and lumbar spine 04/18/2020, lumbar spine radiographs 02/07/2020 FINDINGS: There is mild thoracolumbar scoliosis. No evidence of acute fracture. There is grade 1 anterolisthesis of L5 on S1. Vertebral alignment is otherwise maintained. There are moderate multilevel chronic degenerative changes. Neutral truncal balance. No pelvic tilt. IMPRESSION: 1.Grade 1 anterolisthesis of L5 on S1. 2.Moderate degenerative disc disease. Report dictated by Yonny Jauregui MD (vice president risk management). IDr. PETRONA have personally reviewed and interpreted this examination/study. This report was electronically signed by PETRONA MATSON on 05/11/2020 12:09 PM . Kenia Mccormick MD DIAGNOSTIC IMAGING O RDERABLES * MRI LUMBAR SPINE WO CONTRAST (04/18/2020 12:02 PM COMMERCIAL LOAN ANALYST) Anatomical Region Laterality Modality Spine Magnetic Resonan ce 04/20/2020 1:31 PM COMMERCIAL LOAN ANALYST Addenda Addendum by Gne Recio MD on 04/20/2020 4:49 PM COMMERCIAL LOAN ANALYST ORIGINAL REPORT MRI CERVICAL SPINE WO CONTRAST, MRI LUMBAR SPINE WO CONTRAST DATE: 04/18/2020 12:02 PM EXAMINATION: 1.Magnetic resonance imaging (MRI) of the cervical spine without contrast 2.Magnetic resonance imaging (MRI) of the lumbar spine without contrast HISTORY: R29.2: Hyperreflexia. R29.898: Upper extremity weakness. R29.898: Weakness of both lower extremities. M54.16: Lumbar radiculopathy. M54.12: Cervical radiculopathy TECHNIQUE: 1.MRI of the cervical spine was performed without contrast according to standard protocol. 2.MRI of the lumbar spine was performed without contrast according to standard protocol. COMPARISON: No prior study is available for comparison at the time of this dictation. Correlation with the lumbar spine radiographs from 02/07/2020. FINDINGS: MRI cervical spine: Minimal dextrocurvature of the cervical spine. Suspected trace anterolisthesis of C4 on C5. Suspected trace retrolisthesis of C5 on C6. The alignment is otherwise maintained. There is a T2 and STIR hyperintense lesion in the right side of the T4 vertebral body which may represent lipid poor/atypical hemangioma or other lesion. Vertebral bodies are normal in height without evidence of compression fractures. Marrow signal intensity appears otherwise grossly unremarkable. There are degenerative changes of the atlantoaxial joint. The craniocervical junction and visualized portions of the posterior fossa appear otherwise grossly unremarkable. Mild cord abutment at the C3-C4 and C5-C6. The spinal cord appears otherwise grossly unremarkable. No cord signal changes identified. The anterior and posterior longitudinal ligaments as well as the posterior ligamentous complex appear intact. There is mild disc height loss at multiple levels. There is a 2.3 x 2.0 cm heterogeneously hyperintense, lobulated nodule in the right thyroid lobe, (series 5, image 32). Normal flow voids are identified in the vertebral arteries. C2-3: There is minimal disc bulge. There is minimal thickening of the ligamentum flavum. There is no central canal stenosis. There is mild facet osteoarthritis. There is no uncovertebral joint osteoarthritis. There is no neural foraminal stenosis. C3-4: There is diffuse disc bulge/disc with somewhat complex. There is thickening of the ligamentum flavum. There is mild central canal stenosis with mild cord abutment. There is mild facet osteoarthritis. There is mild uncovertebral joint osteoarthritis. There is mild right and moderate left neural foraminal stenosis. C4-5: There is minimal disc bulge. There is mild thickening of the ligamentum flavum. There is no significant central canal stenosis. There is mild facet osteoarthritis. There is mild to moderate uncovertebral joint osteoarthritis. There is moderate right and severe left neural foraminal stenosis. C5-6: There is diffuse disc bulge, eccentric to the right, with associated disc osteophyte complex. There is thickening of the ligamentum flavum. There is mild central canal stenosis, worse on the right side with mild cord abutment. There is mild facet osteoarthritis. There is mild uncovertebral joint osteoarthritis. There is severe right and mild left neural foraminal stenosis. C6-7: There is mild disc bulge. There is mild thickening of the ligamentum flavum. There is no significant central canal stenosis. There is mild facet osteoarthritis. There is mild uncovertebral joint osteoarthritis. There is mild bilateral neural foraminal stenosis. C7-T1: There is no disc bulge. There is no central canal stenosis. There is mild facet osteoarthritis. There is no uncovertebral joint osteoarthritis. There is no neural foraminal stenosis. MRI Lumbar Spine: Grade 1 anterolisthesis of L5 on S1 with uncovering of the disc and diffuse disc bulge. There is associated bilateral L5 pars interarticularis defects. Vertebral bodies are normal in height without evidence of compression fractures. Mild endplate degenerative changes at L5-S1. Marrow signal intensity appears otherwise grossly unremarkable. The conus medullaris terminates at the level of L1-L2 and the distal spinal cord signal intensity is normal. The anterior and posterior longitudinal ligaments as well as the posterior ligamentous complex appear intact. There is mild to moderate disc height loss at multiple levels, worst at L5-S1. Schmorl's nodes are seen at T12-L1 Bilateral renal cysts, the largest on the right measures up to 2.8 cm. T12-L1: The spinal canal and neural foramina are patent. There is mild facet arthropathy. L1-L2: There is diffuse disc bulge. There is thickening of the ligamentum flavum. There is [id number]-nl-eoohjlij central canal stenosis. There is moderate stenosis of the lateral recesses. There is mild facet osteoarthritis. There is mild bilateral neural foraminal stenosis. L2-L3: There is diffuse disc bulge with a central disc protrusion. There is thickening of the ligamentum flavum. There is moderate-severe central canal stenosis. There is mild to moderate lateral recess stenosis there is moderate facet osteoarthritis. There is mild bilateral neural foraminal stenosis. L3-L4: There is diffuse disc bulge, eccentric to the right. There is thickening of the ligamentum flavum. There is severe central canal stenosis. There is severe lateral recess stenosis, worse on the right. There is mild facet osteoarthritis. There is moderate-severe right and mild left neural foraminal stenosis. L4-L5: There is diffuse disc bulge, eccentric to the left. There is thickening of the ligamentum flavum. There is severe central canal stenosis. There is mild bilateral facet osteoarthritis. There is moderate-severe right and severe left neural foraminal stenosis. L5-S1: There is grade 1 anterolisthesis of L3 5 on S1 with uncovering of the disc and diffuse disc bulge. There is thickening of the ligamentum flavum. There is no significant central canal stenosis. There is mild facet osteoarthritis. There is severe bilateral neural foraminal stenosis. 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 3.2.3 x 2 cm heterogeneously hyperintense right thyroid nodule. A nonemergent thyroid ultrasound is recommended for further evaluation. 4.Bilateral renal cysts. This report was electronically signed by GEN RECIO ??on 04/20/2020 4:41 PM . ADDENDUM #1 L5-S1: First sentence should read: L5-S1: There is grade 1 anterolisthesis of L5 on S1 with uncovering of the disc and diffuse disc bulge and associated bilateral L5 pars interarticularis defects. This report was electronically signed by GEN RECIO ??on 04/20/2020 4:46 PM . 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 3.2.3 x 2 cm heterogeneously hyperintense right thyroid nodule. A nonemergent thyroid ultrasound is recommended for further evaluation. 4.Bilateral renal cysts. This report was electronically signed by JUHEDYVIOLETTA MARIAMARISELA ??on 04/20/2020 4:41 PM . Narrative 04/20/2020 4:41 PM COMMERCIAL LOAN ANALYST MRI CERVICAL SPINE WO CONTRAST, MRI LUMBAR SPINE WO CONTRAST DATE: 04/18/2020 12:02 PM EXAMINATION: 1.Magnetic resonance imaging (MRI) of the cervical spine without contrast 2.Magnetic resonance imaging (MRI) of the lumbar spine without contrast HISTORY: R29.2: Hyperreflexia. R29.898: Upper extremity weakness. R29.898: Weakness of both lower extremities. M54.16: Lumbar radiculopathy. M54.12: Cervical radiculopathy TECHNIQUE: 1.MRI of the cervical spine was performed without contrast according to standard protocol. 2.MRI of the lumbar spine was performed without contrast according to standard protocol. COMPARISON: No prior study is available for comparison at the time of this dictation. Correlation with the lumbar spine radiographs from 02/07/2020. FINDINGS: MRI cervical spine: Minimal dextrocurvature of the cervical spine. Suspected trace anterolisthesis of C4 on C5. Suspected trace retrolisthesis of C5 on C6. The alignment is otherwise maintained. There is a T2 and STIR hyperintense lesion in the right side of the T4 vertebral body which may represent lipid poor/atypical hemangioma or other lesion. Vertebral bodies are normal in height without evidence of compression fractures. Marrow signal intensity appears otherwise grossly unremarkable. There are degenerative changes of the atlantoaxial joint. The craniocervical junction and visualized portions of the posterior fossa appear otherwise grossly unremarkable. Mild cord abutment at the C3-C4 and C5-C6. The spinal cord appears otherwise grossly unremarkable. No cord signal changes identified. The anterior and posterior longitudinal ligaments as well as the posterior ligamentous complex appear intact. There is mild disc height loss at multiple levels. There is a 2.3 x 2.0 cm heterogeneously hyperintense, lobulated nodule in the right thyroid lobe, (series 5, image 32). Normal flow voids are identified in the vertebral arteries. C2-3: There is minimal disc bulge. There is minimal thickening of the ligamentum flavum. There is no central canal stenosis. There is mild facet osteoarthritis. There is no uncovertebral joint osteoarthritis. There is no neural foraminal stenosis. C3-4: There is diffuse disc bulge/disc with somewhat complex. There is thickening of the ligamentum flavum. There is mild central canal stenosis with mild cord abutment. There is mild facet osteoarthritis. There is mild uncovertebral joint osteoarthritis. There is mild right and moderate left neural foraminal stenosis. C4-5: There is minimal disc bulge. There is mild thickening of the ligamentum flavum. There is no significant central canal stenosis. There is mild facet osteoarthritis. There is mild to moderate uncovertebral joint osteoarthritis. There is moderate right and severe left neural foraminal stenosis. C5-6: There is diffuse disc bulge, eccentric to the right, with associated disc osteophyte complex. There is thickening of the ligamentum flavum. There is mild central canal stenosis, worse on the right side with mild cord abutment. There is mild facet osteoarthritis. There is mild uncovertebral joint osteoarthritis. There is severe right and mild left neural foraminal stenosis. C6-7: There is mild disc bulge. There is mild thickening of the ligamentum flavum. There is no significant central canal stenosis. There is mild facet osteoarthritis. There is mild uncovertebral joint osteoarthritis. There is mild bilateral neural foraminal stenosis. C7-T1: There is no disc bulge. There is no central canal stenosis. There is mild facet osteoarthritis. There is no uncovertebral joint osteoarthritis. There is no neural foraminal stenosis. MRI Lumbar Spine: Grade 1 anterolisthesis of L5 on S1 with uncovering of the disc and diffuse disc bulge. There is associated bilateral L5 pars interarticularis defects. Vertebral bodies are normal in height without evidence of compression fractures. Mild endplate degenerative changes at L5-S1. Marrow signal intensity appears otherwise grossly unremarkable. The conus medullaris terminates at the level of L1-L2 and the distal spinal cord signal intensity is normal. The anterior and posterior longitudinal ligaments as well as the posterior ligamentous complex appear intact. There is mild to moderate disc height loss at multiple levels, worst at L5-S1. Schmorl's nodes are seen at T12-L1 Bilateral renal cysts, the largest on the right measures up to 2.8 cm. T12-L1: The spinal canal and neural foramina are patent. There is mild facet arthropathy. L1-L2: There is diffuse disc bulge. There is thickening of the ligamentum flavum. There is [id number]-xd-oebnakjt central canal stenosis. There is moderate stenosis of the lateral recesses. There is mild facet osteoarthritis. There is mild bilateral neural foraminal stenosis. L2-L3: There is diffuse disc bulge with a central disc protrusion. There is thickening of the ligamentum flavum. There is moderate-severe central canal stenosis. There is mild to moderate lateral recess stenosis there is moderate facet osteoarthritis. There is mild bilateral neural foraminal stenosis. L3-L4: There is diffuse disc bulge, eccentric to the right. There is thickening of the ligamentum flavum. There is severe central canal stenosis. There is severe lateral recess stenosis, worse on the right. There is mild facet osteoarthritis. There is moderate-severe right and mild left neural foraminal stenosis. L4-L5: There is diffuse disc bulge, eccentric to the left. There is thickening of the ligamentum flavum. There is severe central canal stenosis. There is mild bilateral facet osteoarthritis. There is moderate-severe right and severe left neural foraminal stenosis. L5-S1: There is grade 1 anterolisthesis of L3 5 on S1 with uncovering of the disc and diffuse disc bulge. There is thickening of the ligamentum flavum. There is no significant central canal stenosis. There is mild facet osteoarthritis. There is severe bilateral neural foraminal stenosis. Procedure Note Gen Recio MD - 04/20/2020 MRI CERVICAL SPINE WO CONTRAST, MRI LUMBAR SPINE WO CONTRAST DATE: 04/18/2020 12:02 PM EXAMINATION: 1.Magnetic resonance imaging (MRI) of the cervical spine withoutcontrast 2.Magnetic resonance imaging (MRI) of the lumbar spine without contrast HISTORY: R29.2: Hyperreflexia. R29.898: Upper extremity weakness.R29.898: Weakness of both lower extremities. M54.16: Lumbar radiculopathy.M54.12: Cervical radiculopathy TECHNIQUE: 1.MRI of the cervical spine was performed without contrast according to standard protocol. 2.MRI of the lumbar spine was performed without contrast according to standard protocol. COMPARISON: No prior study is available for comparison at the time ofthis dictation. Correlation with the lumbar spine radiographs from 02/07/2020. FINDINGS: MRI cervical spine: Minimal dextrocurvature of the cervical spine. Suspected trace anterolisthesis of C4 on C5. Suspected trace retrolisthesis of C5 on C6. The alignment is otherwise maintained. There is a T2 and STIRhyperintense lesion in the right side of the T4 vertebral body which may represent lipid poor/atypical hemangioma or other lesion. Vertebral bodies are normal in height without evidence of compression fractures. Marrowsignal intensity appears otherwise grossly unremarkable. There are degenerative changes of the atlantoaxial joint. The craniocervical junction and visualized portions of the posterior fossa appear otherwise grossly unremarkable. Mild cord abutment at the C3-C4 and C5-C6. The spinal cord appears otherwise grossly unremarkable. No cord signal changesidentified. The anterior and posterior longitudinal ligaments as well as theposterior ligamentous complex appear intact. There is mild disc height loss at multiple levels. There is a 2.3 x 2.0 cm heterogeneously hyperintense, lobulated nodule in the right thyroid lobe, (series 5, image 32). Normal flow voids are identified in the vertebral arteries. C2-3: There is minimal disc bulge. There is minimal thickening of the ligamentum flavum. There is no central canal stenosis. There is mildfacet osteoarthritis. There is no uncovertebral joint osteoarthritis. There is no neural foraminal stenosis. C3-4: There is diffuse disc bulge/disc with somewhat complex. There is thickening of the ligamentum flavum. There is mild central canalstenosis with mild cord abutment. There is mild facet osteoarthritis. There ismild uncovertebral joint osteoarthritis. There is mild right and moderateleft neural foraminal stenosis. C4-5: There is minimal disc bulge. There is mild thickening of the ligamentum flavum. There is no significant central canal stenosis. There is mild facet osteoarthritis. There is mild to moderate uncovertebral joint osteoarthritis. There is moderate right and severe left neural foraminal stenosis. C5-6: There is diffuse disc bulge, eccentric to the right, withassociated disc osteophyte complex. There is thickening of the ligamentum flavum. There is mild central canal stenosis, worse on the right side with mild cord abutment. There is mild facet osteoarthritis. There is mild uncovertebral joint osteoarthritis. There is severe right and mild left neural foraminal stenosis. C6-7: There is mild disc bulge. There is mild thickening of theligamentum flavum. There is no significant central canal stenosis. There is mild facet osteoarthritis. There is mild uncovertebral joint osteoarthritis. There is mild bilateral neural foraminal stenosis. C7-T1: There is no disc bulge. There is no central canal stenosis. There is mild facet osteoarthritis. There is no uncovertebral joint osteoarthritis. There is no neural foraminal stenosis. MRI Lumbar Spine: Grade 1 anterolisthesis of L5 on S1 with uncovering of the disc and diffuse disc bulge. There is associated bilateral L5 parsinterarticularis defects. Vertebral bodies are normal in height without evidence of compression fractures. Mild endplate degenerative changes at L5-S1.Marrow signal intensity appears otherwise grossly unremarkable. The conus medullaris terminates at the level of L1-L2 and the distal spinal cord signal intensity is normal. The anterior and posterior longitudinal ligaments as well as the posterior ligamentous complex appear intact. There is mild to moderate disc height loss at multiple levels, worst at L5-S1. Schmorl's nodes are seen at T12-L1 Bilateral renal cysts, the largest on the right measures up to 2.8 cm. T12-L1: The spinal canal and neural foramina are patent. There is mild facet arthropathy. L1-L2: There is diffuse disc bulge. There is thickening of theligamentum flavum. There is eoqw-hd-boxhrcsh central canal stenosis. There is moderate stenosis of the lateral recesses. There is mild facet osteoarthritis. There is mild bilateral neural foraminal stenosis. L2-L3: There is diffuse disc bulge with a central disc protrusion. There is thickening of the ligamentum flavum. There is moderate-severe central canal stenosis. There is mild to moderate lateral recess stenosis thereis moderate facet osteoarthritis. There is mild bilateral neural foraminal stenosis. L3-L4: There is diffuse disc bulge, eccentric to the right. There is thickening of the ligamentum flavum. There is severe central canal stenosis. There is severe lateral recess stenosis, worse on the right. There is mild facet osteoarthritis. There is moderate-severe right and mild left neural foraminal stenosis. L4-L5: There is diffuse disc bulge, eccentric to the left. There is thickening of the ligamentum flavum. There is severe central canal stenosis. There is mild bilateral facet osteoarthritis. There is moderate-severe right and severe left neural foraminal stenosis. L5-S1: There is grade 1 anterolisthesis of L3 5 on S1 with uncovering of the disc and diffuse disc bulge. There is thickening of the ligamentum flavum. There is no significant central canal stenosis. There is mild facet osteoarthritis. There is severe bilateral neural foraminalstenosis. IMPRESSION: 1.Multilevel degenerative disc and joint disease of the cervical spineas detailed level by level above. 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 3.2.3 x 2 cm heterogeneously hyperintense right thyroid nodule. A nonemergent thyroid ultrasound is recommended for further evaluation. 4.Bilateral renal cysts. This report was electronically signed by GEN RECIO on 04/20/2020 4:41 PM . [facility] MR ORDERABLES * MRI CERVICAL SPINE WO CONTRAST (04/18/2020 12:02 PM COMMERCIAL LOAN ANALYST) Anatomical Region Laterality Modality Pelvis Magnetic Resonan ce 04/20/2020 1:31 PM COMMERCIAL LOAN ANALYST Addenda Addendum by Gen Recio MD on 04/20/2020 4:49 PM COMMERCIAL LOAN ANALYST ORIGINAL REPORT MRI CERVICAL SPINE WO CONTRAST, MRI LUMBAR SPINE WO CONTRAST DATE: 04/18/2020 12:02 PM EXAMINATION: 1.Magnetic resonance imaging (MRI) of the cervical spine without contrast 2.Magnetic resonance imaging (MRI) of the lumbar spine without contrast HISTORY: R29.2: Hyperreflexia. R29.898: Upper extremity weakness. R29.898: Weakness of both lower extremities. M54.16: Lumbar radiculopathy. M54.12: Cervical radiculopathy TECHNIQUE: 1.MRI of the cervical spine was performed without contrast according to standard protocol. 2.MRI of the lumbar spine was performed without contrast according to standard protocol. COMPARISON: No prior study is available for comparison at the time of this dictation. Correlation with the lumbar spine radiographs from 02/07/2020. FINDINGS: MRI cervical spine: Minimal dextrocurvature of the cervical spine. Suspected trace anterolisthesis of C4 on C5. Suspected trace retrolisthesis of C5 on C6. The alignment is otherwise maintained. There is a T2 and STIR hyperintense lesion in the right side of the T4 vertebral body which may represent lipid poor/atypical hemangioma or other lesion. Vertebral bodies are normal in height without evidence of compression fractures. Marrow signal intensity appears otherwise grossly unremarkable. There are degenerative changes of the atlantoaxial joint. The craniocervical junction and visualized portions of the posterior fossa appear otherwise grossly unremarkable. Mild cord abutment at the C3-C4 and C5-C6. The spinal cord appears otherwise grossly unremarkable. No cord signal changes identified. The anterior and posterior longitudinal ligaments as well as the posterior ligamentous complex appear intact. There is mild disc height loss at multiple levels. There is a 2.3 x 2.0 cm heterogeneously hyperintense, lobulated nodule in the right thyroid lobe, (series 5, image 32). Normal flow voids are identified in the vertebral arteries. C2-3: There is minimal disc bulge. There is minimal thickening of the ligamentum flavum. There is no central canal stenosis. There is mild facet osteoarthritis. There is no uncovertebral joint osteoarthritis. There is no neural foraminal stenosis. C3-4: There is diffuse disc bulge/disc with somewhat complex. There is thickening of the ligamentum flavum. There is mild central canal stenosis with mild cord abutment. There is mild facet osteoarthritis. There is mild uncovertebral joint osteoarthritis. There is mild right and moderate left neural foraminal stenosis. C4-5: There is minimal disc bulge. There is mild thickening of the ligamentum flavum. There is no significant central canal stenosis. There is mild facet osteoarthritis. There is mild to moderate uncovertebral joint osteoarthritis. There is moderate right and severe left neural foraminal stenosis. C5-6: There is diffuse disc bulge, eccentric to the right, with associated disc osteophyte complex. There is thickening of the ligamentum flavum. There is mild central canal stenosis, worse on the right side with mild cord abutment. There is mild facet osteoarthritis. There is mild uncovertebral joint osteoarthritis. There is severe right and mild left neural foraminal stenosis. C6-7: There is mild disc bulge. There is mild thickening of the ligamentum flavum. There is no significant central canal stenosis. There is mild facet osteoarthritis. There is mild uncovertebral joint osteoarthritis. There is mild bilateral neural foraminal stenosis. C7-T1: There is no disc bulge. There is no central canal stenosis. There is mild facet osteoarthritis. There is no uncovertebral joint osteoarthritis. There is no neural foraminal stenosis. MRI Lumbar Spine: Grade 1 anterolisthesis of L5 on S1 with uncovering of the disc and diffuse disc bulge. There is associated bilateral L5 pars interarticularis defects. Vertebral bodies are normal in height without evidence of compression fractures. Mild endplate degenerative changes at L5-S1. Marrow signal intensity appears otherwise grossly unremarkable. The conus medullaris terminates at the level of L1-L2 and the distal spinal cord signal intensity is normal. The anterior and posterior longitudinal ligaments as well as the posterior ligamentous complex appear intact. There is mild to moderate disc height loss at multiple levels, worst at L5-S1. Schmorl's nodes are seen at T12-L1 Bilateral renal cysts, the largest on the right measures up to 2.8 cm. T12-L1: The spinal canal and neural foramina are patent. There is mild facet arthropathy. L1-L2: There is diffuse disc bulge. There is thickening of the ligamentum flavum. There is occy-nu-fmeyysak central canal stenosis. There is moderate stenosis of the lateral recesses. There is mild facet osteoarthritis. There is mild bilateral neural foraminal stenosis. L2-L3: There is diffuse disc bulge with a central disc protrusion. There is thickening of the ligamentum flavum. There is moderate-severe central canal stenosis. There is mild to moderate lateral recess stenosis there is moderate facet osteoarthritis. There is mild bilateral neural foraminal stenosis. L3-L4: There is diffuse disc bulge, eccentric to the right. There is thickening of the ligamentum flavum. There is severe central canal stenosis. There is severe lateral recess stenosis, worse on the right. There is mild facet osteoarthritis. There is moderate-severe right and mild left neural foraminal stenosis. L4-L5: There is diffuse disc bulge, eccentric to the left. There is thickening of the ligamentum flavum. There is severe central canal stenosis. There is mild bilateral facet osteoarthritis. There is moderate-severe right and severe left neural foraminal stenosis. L5-S1: There is grade 1 anterolisthesis of L3 5 on S1 with uncovering of the disc and diffuse disc bulge. There is thickening of the ligamentum flavum. There is no significant central canal stenosis. There is mild facet osteoarthritis. There is severe bilateral neural foraminal stenosis. 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 3.2.3 x 2 cm heterogeneously hyperintense right thyroid nodule. A nonemergent thyroid ultrasound is recommended for further evaluation. 4.Bilateral renal cysts. This report was electronically signed by GEN RECIO ??on 04/20/2020 4:41 PM . ADDENDUM #1 L5-S1: First sentence should read: L5-S1: There is grade 1 anterolisthesis of L5 on S1 with uncovering of the disc and diffuse disc bulge and associated bilateral L5 pars interarticularis defects. This report was electronically signed by GEN RECIO ??on 04/20/2020 4:46 PM . 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 3.2.3 x 2 cm heterogeneously hyperintense right thyroid nodule. A nonemergent thyroid ultrasound is recommended for further evaluation. 4.Bilateral renal cysts. This report was electronically signed by GEN RECIO ??on 04/20/2020 4:41 PM . Narrative 04/20/2020 4:41 PM COMMERCIAL LOAN ANALYST MRI CERVICAL SPINE WO CONTRAST, MRI LUMBAR SPINE WO CONTRAST DATE: 04/18/2020 12:02 PM EXAMINATION: 1.Magnetic resonance imaging (MRI) of the cervical spine without contrast 2.Magnetic resonance imaging (MRI) of the lumbar spine without contrast HISTORY: R29.2: Hyperreflexia. R29.898: Upper extremity weakness. R29.898: Weakness of both lower extremities. M54.16: Lumbar radiculopathy. M54.12: Cervical radiculopathy TECHNIQUE: 1.MRI of the cervical spine was performed without contrast according to standard protocol. 2.MRI of the lumbar spine was performed without contrast according to standard protocol. COMPARISON: No prior study is available for comparison at the time of this dictation. Correlation with the lumbar spine radiographs from 02/07/2020. FINDINGS: MRI cervical spine: Minimal dextrocurvature of the cervical spine. Suspected trace anterolisthesis of C4 on C5. Suspected trace retrolisthesis of C5 on C6. The alignment is otherwise maintained. There is a T2 and STIR hyperintense lesion in the right side of the T4 vertebral body which may represent lipid poor/atypical hemangioma or other lesion. Vertebral bodies are normal in height without evidence of compression fractures. Marrow signal intensity appears otherwise grossly unremarkable. There are degenerative changes of the atlantoaxial joint. The craniocervical junction and visualized portions of the posterior fossa appear otherwise grossly unremarkable. Mild cord abutment at the C3-C4 and C5-C6. The spinal cord appears otherwise grossly unremarkable. No cord signal changes identified. The anterior and posterior longitudinal ligaments as well as the posterior ligamentous complex appear intact. There is mild disc height loss at multiple levels. There is a 2.3 x 2.0 cm heterogeneously hyperintense, lobulated nodule in the right thyroid lobe, (series 5, image 32). Normal flow voids are identified in the vertebral arteries. C2-3: There is minimal disc bulge. There is minimal thickening of the ligamentum flavum. There is no central canal stenosis. There is mild facet osteoarthritis. There is no uncovertebral joint osteoarthritis. There is no neural foraminal stenosis. C3-4: There is diffuse disc bulge/disc with somewhat complex. There is thickening of the ligamentum flavum. There is mild central canal stenosis with mild cord abutment. There is mild facet osteoarthritis. There is mild uncovertebral joint osteoarthritis. There is mild right and moderate left neural foraminal stenosis. C4-5: There is minimal disc bulge. There is mild thickening of the ligamentum flavum. There is no significant central canal stenosis. There is mild facet osteoarthritis. There is mild to moderate uncovertebral joint osteoarthritis. There is moderate right and severe left neural foraminal stenosis. C5-6: There is diffuse disc bulge, eccentric to the right, with associated disc osteophyte complex. There is thickening of the ligamentum flavum. There is mild central canal stenosis, worse on the right side with mild cord abutment. There is mild facet osteoarthritis. There is mild uncovertebral joint osteoarthritis. There is severe right and mild left neural foraminal stenosis. C6-7: There is mild disc bulge. There is mild thickening of the ligamentum flavum. There is no significant central canal stenosis. There is mild facet osteoarthritis. There is mild uncovertebral joint osteoarthritis. There is mild bilateral neural foraminal stenosis. C7-T1: There is no disc bulge. There is no central canal stenosis. There is mild facet osteoarthritis. There is no uncovertebral joint osteoarthritis. There is no neural foraminal stenosis. MRI Lumbar Spine: Grade 1 anterolisthesis of L5 on S1 with uncovering of the disc and diffuse disc bulge. There is associated bilateral L5 pars interarticularis defects. Vertebral bodies are normal in height without evidence of compression fractures. Mild endplate degenerative changes at L5-S1. Marrow signal intensity appears otherwise grossly unremarkable. The conus medullaris terminates at the level of L1-L2 and the distal spinal cord signal intensity is normal. The anterior and posterior longitudinal ligaments as well as the posterior ligamentous complex appear intact. There is mild to moderate disc height loss at multiple levels, worst at L5-S1. Schmorl's nodes are seen at T12-L1 Bilateral renal cysts, the largest on the right measures up to 2.8 cm. T12-L1: The spinal canal and neural foramina are patent. There is mild facet arthropathy. L1-L2: There is diffuse disc bulge. There is thickening of the ligamentum flavum. There is [id number] central canal stenosis. There is moderate stenosis of the lateral recesses. There is mild facet osteoarthritis. There is mild bilateral neural foraminal stenosis. L2-L3: There is diffuse disc bulge with a central disc protrusion. There is thickening of the ligamentum flavum. There is moderate-severe central canal stenosis. There is mild to moderate lateral recess stenosis there is moderate facet osteoarthritis. There is mild bilateral neural foraminal stenosis. L3-L4: There is diffuse disc bulge, eccentric to the right. There is thickening of the ligamentum flavum. There is severe central canal stenosis. There is severe lateral recess stenosis, worse on the right. There is mild facet osteoarthritis. There is moderate-severe right and mild left neural foraminal stenosis. L4-L5: There is diffuse disc bulge, eccentric to the left. There is thickening of the ligamentum flavum. There is severe central canal stenosis. There is mild bilateral facet osteoarthritis. There is moderate-severe right and severe left neural foraminal stenosis. L5-S1: There is grade 1 anterolisthesis of L3 5 on S1 with uncovering of the disc and diffuse disc bulge. There is thickening of the ligamentum flavum. There is no significant central canal stenosis. There is mild facet osteoarthritis. There is severe bilateral neural foraminal stenosis. Procedure Note Gen Recio MD - 04/20/2020 MRI CERVICAL SPINE WO CONTRAST, MRI LUMBAR SPINE WO CONTRAST DATE: 04/18/2020 12:02 PM EXAMINATION: 1.Magnetic resonance imaging (MRI) of the cervical spine withoutcontrast 2.Magnetic resonance imaging (MRI) of the lumbar spine without contrast HISTORY: R29.2: Hyperreflexia. R29.898: Upper extremity weakness.R29.898: Weakness of both lower extremities. M54.16: Lumbar radiculopathy.M54.12: Cervical radiculopathy TECHNIQUE: 1.MRI of the cervical spine was performed without contrast according to standard protocol. 2.MRI of the lumbar spine was performed without contrast according to standard protocol. COMPARISON: No prior study is available for comparison at the time ofthis dictation. Correlation with the lumbar spine radiographs from 02/07/2020. FINDINGS: MRI cervical spine: Minimal dextrocurvature of the cervical spine. Suspected trace anterolisthesis of C4 on C5. Suspected trace retrolisthesis of C5 on C6. The alignment is otherwise maintained. There is a T2 and STIRhyperintense lesion in the right side of the T4 vertebral body which may represent lipid poor/atypical hemangioma or other lesion. Vertebral bodies are normal in height without evidence of compression fractures. Marrowsignal intensity appears otherwise grossly unremarkable. There are degenerative changes of the atlantoaxial joint. The craniocervical junction and visualized portions of the posterior fossa appear otherwise grossly unremarkable. Mild cord abutment at the C3-C4 and C5-C6. The spinal cord appears otherwise grossly unremarkable. No cord signal changesidentified. The anterior and posterior longitudinal ligaments as well as theposterior ligamentous complex appear intact. There is mild disc height loss at multiple levels. There is a 2.3 x 2.0 cm heterogeneously hyperintense, lobulated nodule in the right thyroid lobe, (series 5, image 32). Normal flow voids are identified in the vertebral arteries. C2-3: There is minimal disc bulge. There is minimal thickening of the ligamentum flavum. There is no central canal stenosis. There is mildfacet osteoarthritis. There is no uncovertebral joint osteoarthritis. There is no neural foraminal stenosis. C3-4: There is diffuse disc bulge/disc with somewhat complex. There is thickening of the ligamentum flavum. There is mild central canalstenosis with mild cord abutment. There is mild facet osteoarthritis. There ismild uncovertebral joint osteoarthritis. There is mild right and moderateleft neural foraminal stenosis. C4-5: There is minimal disc bulge. There is mild thickening of the ligamentum flavum. There is no significant central canal stenosis. There is mild facet osteoarthritis. There is mild to moderate uncovertebral joint osteoarthritis. There is moderate right and severe left neural foraminal stenosis. C5-6: There is diffuse disc bulge, eccentric to the right, withassociated disc osteophyte complex. There is thickening of the ligamentum flavum. There is mild central canal stenosis, worse on the right side with mild cord abutment. There is mild facet osteoarthritis. There is mild uncovertebral joint osteoarthritis. There is severe right and mild left neural foraminal stenosis. C6-7: There is mild disc bulge. There is mild thickening of theligamentum flavum. There is no significant central canal stenosis. There is mild facet osteoarthritis. There is mild uncovertebral joint osteoarthritis. There is mild bilateral neural foraminal stenosis. C7-T1: There is no disc bulge. There is no central canal stenosis. There is mild facet osteoarthritis. There is no uncovertebral joint osteoarthritis. There is no neural foraminal stenosis. MRI Lumbar Spine: Grade 1 anterolisthesis of L5 on S1 with uncovering of the disc and diffuse disc bulge. There is associated bilateral L5 parsinterarticularis defects. Vertebral bodies are normal in height without evidence of compression fractures. Mild endplate degenerative changes at L5-S1.Marrow signal intensity appears otherwise grossly unremarkable. The conus medullaris terminates at the level of L1-L2 and the distal spinal cord signal intensity is normal. The anterior and posterior longitudinal ligaments as well as the posterior ligamentous complex appear intact. There is mild to moderate disc height loss at multiple levels, worst at L5-S1. Schmorl's nodes are seen at T12-L1 Bilateral renal cysts, the largest on the right measures up to 2.8 cm. T12-L1: The spinal canal and neural foramina are patent. There is mild facet arthropathy. L1-L2: There is diffuse disc bulge. There is thickening of theligamentum flavum. There is lzcq-mg-aprmkgof central canal stenosis. There is moderate stenosis of the lateral recesses. There is mild facet osteoarthritis. There is mild bilateral neural foraminal stenosis. L2-L3: There is diffuse disc bulge with a central disc protrusion. There is thickening of the ligamentum flavum. There is moderate-severe central canal stenosis. There is mild to moderate lateral recess stenosis thereis moderate facet osteoarthritis. There is mild bilateral neural foraminal stenosis. L3-L4: There is diffuse disc bulge, eccentric to the right. There is thickening of the ligamentum flavum. There is severe central canal stenosis. There is severe lateral recess stenosis, worse on the right. There is mild facet osteoarthritis. There is moderate-severe right and mild left neural foraminal stenosis. L4-L5: There is diffuse disc bulge, eccentric to the left. There is thickening of the ligamentum flavum. There is severe central canal stenosis. There is mild bilateral facet osteoarthritis. There is moderate-severe right and severe left neural foraminal stenosis. L5-S1: There is grade 1 anterolisthesis of L3 5 on S1 with uncovering of the disc and diffuse disc bulge. There is thickening of the ligamentum flavum. There is no significant central canal stenosis. There is mild facet osteoarthritis. There is severe bilateral neural foraminalstenosis. IMPRESSION: 1.Multilevel degenerative disc and joint disease of the cervical spineas detailed level by level above. 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 3.2.3 x 2 cm heterogeneously hyperintense right thyroid nodule. A nonemergent thyroid ultrasound is recommended for further evaluation. 4.Bilateral renal cysts. This report was electronically signed by GEN RECIO on 04/20/2020 4:41 PM . Chelsea SMITH MR ORDERABLES * XR LUMBAR SPINE 2 OR 3VW (02/07/2020 12:39 PM CDT) Anatomical Region Laterality Modality Spine Radiographic Ibis ging 02/07/2020 3:14 PM CDT Impressions 02/07/2020 3:32 PM CDT IMPRESSION: Moderate spondylosis, greatest at L5-S1 where there is grade 1 anterolisthesis. Dictated by Nathan Novak MD (vice president risk management). Dr. GERBER Sandoval MD have personally reviewed and interpreted this examination/study. This report was electronically signed by GERBER NAZARIO MD ??on 02/07/2020 3:32 PM . Narrative 02/07/2020 3:32 PM CDT EXAMINATION: XR LUMBAR SPINE 2 views HISTORY: Low back pain COMPARISON: No prior study is available for comparison. FINDINGS: Right upper quadrant clips are seen, probably cholecystectomy clips. There is no fracture. There is grade 1 anterolisthesis at L5-S1. There is moderate multilevel degenerative disc and joint disease, greatest at L5-S1. Mild thoracolumbar scoliosis is suggested. Procedure Note Gerber Nazario MD - 02/07/2020 EXAMINATION: XR LUMBAR SPINE 2 views HISTORY: Low back pain COMPARISON: No prior study is available for comparison. FINDINGS: Right upper quadrant clips are seen, probably cholecystectomy clips. There is no fracture. There is grade 1 anterolisthesis at L5-S1. Thereis moderate multilevel degenerative disc and joint disease, greatest at L5-S1. Mild thoracolumbar scoliosis is suggested. IMPRESSION: Moderate spondylosis, greatest at L5-S1 where there is grade 1 anterolisthesis. Dictated by Nathan Novak MD (vice president risk management). I, Dr. GERBER NAZARIO MD have personally reviewed and interpreted this examination/study. This report was electronically signed by GERBER NAZARIO MD on02/07/2020 3:32 PM . Amaya Romo APRN-ART DIAGNOSTIC IMAG ING ORDERABLES * DERMATOPATH TECHNICAL REPORT (11/05/2019 12:00 AM CDT) Case Report Dermatopathology Report ? Case: [id number] ? Authorizing Provider: ??Kamryn Garcia MD ? Collected: ? 11/05/2019 12:00 AM ? Ordering Location: ? [facility] DermPath Lab ?Received: ?11/06/2019 06:40 AM ? Pathologist: ? Sarah Quiroz MD ? Specimen: ?Skin, dorsal nose ? 0 3:28 PM T DERMATOPATHOLOGY LABORATORY Clinical History R/O BCC, irritated, non-healing. 0 3:28 PM T DERMATOPATHOLOGY LABORATORY Gross Description Specimen A: Received is one formalin filled container labeled with the patient's name and designated dorsal nose. The specimen consists of a shave measuring [id number]. Jar 0. [facility] Dermatopathology Laboratory performed the technical component only. 0 3:28 PM CDT DERMATOPATHOLOGY LABORATORY Embedded Images 0 3:28 PM T DERMATOPATHOLOGY LABORATORY DISCLAIMER An external and internal positive and negative controls are appropriate for the histochemical, immunohistochemical and immunofluorescence stain(s) in this case (if any), except where stated explicitly. The performance characteristics of the stain(s) cited in this report were developed and its performance characteristic determined by the Dermatopathology Laboratory at [facility], directed by Dr. Mike Tavares. These tests need not be, and therefore are not, approved by the [place] Food and Drug Administration. The tests are used for clinical purposes. 0 3:28 PM [facility] DERMATOPATHOLOGY LABORATORY Pathology/Cytolog y TISSUE SPECIMEN FROM SKIN / Unknown 11/05/2019 11/06/2019 6:40 AM CDT Kamryn Garcia MD LAB - PATHOLOGY/CYT OLOGY ORDERABLES Performing Organization Address City/State/[facility] Co de Phone Number DERMATOPATHOLOGY LABORATORY [facility] - Department of Dermatology Staff Sonographer Center/[address] [place] [address], [facility] [phone] * DERMATOPATHOLOGY (10/23/2018 12:00 AM CDT) Case Report Dermatopathology Report ? Case: [id number] ? Authorizing Provider: ??Kamryn Garcia MD ? Collected: ? 10/23/2018 12:00 AM ? Pathologist: ? Zayda Tavares MD ? Received: ?10/24/2018 07:46 AM ? Specimens: ?? A) - Skin, right chin ? B) - Skin, left cheek ? 9 10:13 AM CDT DERMATOPATHOLOGY LABORATORY Final Diagnosis Specimen A. SKIN, right chin: BASAL CELL CARCINOMA (C44.319) PRESENT AT MARGIN (see microscopic description and comment) Specimen B. 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 10:13 AM [facility] DERMATOPATHOLOGY LABORATORY Gross Description Specimen A: Received is one formalin filled container labeled with the patient's name and designated right chin. The specimen consists of a shave measuring [id number]. Jar 0. Specimen B: Received is one formalin filled container labeled with the patient's name and designated left cheek. The specimen consists of a shave measuring [id number]. Jar 0. 10:13 AM [facility] DERMATOPATHOLOGY LABORATORY Microscopic Description Specimen A. SKIN, right chin: The specimen consists of aggregates of basaloid cells, located within the superficial dermis, with high nuclear to cytoplasmic ratio and peripheral palisading. COMMENT: The small size of the specimen limits subtyping of the lesion. This lesion is present at the margin of the specimen. Specimen B. SKIN, left cheek: Within the dermis there are aggregates of basaloid cells with a high nuclear to cytoplasmic ratio and peripheral palisading. This lesion is present at the margin of the specimen. 10:13 AM [facility] DERMATOPATHOLOGY LABORATORY Disclaimer An external and internal positive and negative controls are appropriate for the histochemical, immunohistochemical and immunofluorescence stain(s) in this case (if any), except where stated explicitly. The performance characteristics of the stain(s) cited in this report were developed and its performance characteristic determined by the Dermatopathology Laboratory at [facility], directed by Dr. Mike Tavares. These tests need not be, and therefore are not, approved by the [place] Food and Drug Administration. The tests are used for clinical purposes. Billing Codes Specimen Charges Stain Charges [id number] 1 1 10:13 AM [facility] DERMATOPATHOLOGY LABORATORY Embedded Images 10:13 AM [facility] DERMATOPATHOLOGY LABORATORY Pathology/Cytology TISSUE SPECIMEN FROM SKIN / Unknown 10/23/2018 10/24/2018 7:46 AM T Miscellaneous samples (specimen) TISSUE SPECIMEN FROM SKIN / Unknown 10/23/2018 10/24/2018 7:46 AM CDT Kamryn Garcia MD LAB - PATHOLOGY/CYT OLOGY ORDERABLES DERMATOPATHOLOGY LABORATORY [facility] - Department of Dermatology [address] [facility], 5th Floor Lab [address] [phone] Care Teams Production Sanitizer Relationship Specialty Start Date End Date Cj Richards MD [address] [place] [address] PCP - General 04/12/10
--- OUTSIDE RECORDS SUMMARY | 2024-07-03 14:18 | XMS_ITS | Encounter Summary ---
Author Organization [facility] Healthcare Address [address] [place] [id number] Care Team Providers Care Camera Maker Name Role Phone Cj Richards MD Primary Care Provider [phone] Andrew Nelson DO Primary Care Provider [phone] Encounter Details Date Type Department Care Team (Late st Contact Info) Description 07/17/2020 Telephone [facility] - Imaging [facility] [place] [address] Transcribed Order, Provider Social History Tobacco Use Types Packs/Day Years Used Date Smoking Tobacco: Never Smokeless Tobacco: Never Alcohol Use Standard Drinks/Week Comments No 0 (1 standard drink = 0.6 oz pur e alcohol) Sex and Gender Information Value Date Recorded Sex Assigned at Not on file 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
--- OUTSIDE RECORDS SUMMARY | 2024-07-03 14:18 | XMS_ITS | Clinical Summary ---
Author Organization [facility] Address [address] [place] [address] Care Team Providers Care Stripe Marker Name Role Phone Andrew Nelson Primary Care Provider [phone] Allergies No known active allergies Medications levothyroxine (SYNTHROID) 50 mcg tablet Take 1 tablet (50 mcg total) by mouth daily 09/18/19 20 Active tamsulosin (FLOMAX) 0.4 mg extended release capsule Take 1 capsule (0.4 mg total) by mouth daily Active omeprazole (PriLOSEC) 20 mg capsule Take 1 capsule (20 mg total) by mouth daily Active aspirin 81 mg enteric coated tabletIndication s:Atrial fibrillation, unspecified type (HCC),Chest tightness Take 1 tablet (81 mg total) by mouth daily 30 tablet 11 10/14/19 20 Active carbidopa-levodo pa (SINEMET) 25-100 mg per tablet Take 1 tablet by mouth 3 (three) times a day 12/03/19 21 Active acetaminophen (TYLENOL) 500 mg tabletIndication s:Pain Take 2 tablets (1,000 mg total) by mouth every 6 (six) hours as needed for pain patient not to exceed 4000 mg of acetaminophen in 24 hours 02/04/20 21 Active amantadine (SYMMETREL) 100 mg capsule TAKE 1 CAPSULE BY MOUTH TWICE A DAY FOR 30 DAYS 05/01/20 23 Active amLODIPine (NORVASC) 5 mg tablet Take 1 tablet (5 mg total) by mouth daily 05/08/20 23 Active traZODone (DESYREL) 50 mg tablet 50 MG ORALLY EVERY DAY AT BEDTIME NEEDED FOR INSOMNIA Active lisinopriL (PRINIVIL,ZESTRI L) 20 mg tabletIndication s:Essential hypertension TAKE 1 TABLET BY MOUTH EVERY DAY 30 tablet 6 05/06/20 24 Active Active Problems Problem Noted Date Diagnosed Date Lumbar stenosis with neurogenic claudication Pulmonary hypertension 01/07/2020 Non-rheumatic aortic regurgitation 11/26/2019 RONDON (dyspnea on exertion) 10/14/2019 Palpitations 10/14/2019 PVC (premature ventricular contraction) 10/14/19 Gastroesophageal reflux disease 10/14/2019 Hypothyroidism 10/14/2019 Essential hypertension 10/14/2019 Abnormal EKG 10/14/2019 Postural dizziness with near syncope 10/14/2019 Chest tightness 10/14/2019 Atrial fibrillation (CMS/HCC) 03/09/2015 Overview (09/09/2016): A Fib Surgical History Surgery Date Site/Laterality Comments HAND SURGERY INGUINAL HERNIA REPAIR Right THUMB SURGERY Left ligament repair KNEE ARTHROSCOPY Medical History Medical History Date Comments Hypertension GERD (gastroesophageal reflux disease) Spinal stenosis of lumbar region BPH (benign prostatic hyperplasia) Hypothyroidism Parkinson disease (HCC) Non-rheumatic aortic regurgitation followed by Dr. Yeboah PVC's (premature ventricular contractions) Family History Medical History Relation Name Comments Prostate cancer Father Lung cancer Sister Relation Name Status Comments Father (Age 72) Mother (Age 99) Sister (Age 78) Social History Tobacco Use Types Packs/Day Years Used Date Smoking Tobacco: Never Smokeless Tobacco: Never Tobacco Cessation:Counseling Given: Not Answered Alcohol Use Standard Drinks/Week Comments No 0 (1 standard drink = 0.6 oz pur e alcohol) AUDIT-C Answer Date Recorded Q1: How often do you have a drink containing alc ohol? 2-4 times a month 01/25/2021 Q2: How many drinks containi ng alcohol do you have on a typical day when you are drinking? 1 or 2 01/25/2021 Q3: How often do you have si x or more drinks on one occasion? 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 Gender Identity Not on file Sexual Orientation Not on file Obstetrics History Last Filed Vital Signs Vital Sign Reading Time Taken Comments Blood Pressure 124/72 11/16/2023 2:44 PM CDT Pulse 74 11/16/2023 2:44 PM CDT Temperature 36.6 ??C (97.8 ??F) 09/25/2022 4:13 PM CD T Respiratory Rate 20 09/25/2022 4:13 PM CDT Oxygen Saturation 98% 11/16/2023 2:44 PM CDT Inhaled Oxygen Concentration - - Weight 81.2 kg (179 lb) 11/16/2023 2:44 PM CDT Height 170.2 cm (5' 7 ) 11/16/2023 2:44 PM CDT Body Mass Index 28.04 11/16/2023 2:44 PM CDT Plan of Treatment Health Maintenance Due Date Last Done Comments Depression Screening 1940 DTaP/Tdap/Td Vaccine (1 - Tdap) 10/28/1950 Hepatitis B Screening 10/28/1957 Pneumococcal vaccine 65+ (1 of 1 - PCV) 10/28/2004 Well Visit 65+ 10/28/2004 Fall Risk Assessment 02/02/2022 02/02/2021 Covid-19 Vaccine (3 - 2023-2 5 season) 2024 08/11/2020, 07/14/2020 Influenza Vaccine (#1) 2024 , 02/13/2019, 03/19/2018, Additional history exists Zoster Vaccine Completed 04/27/2019, 02/18/2019 Insurance MEDICARE [facility] MEDICARE [facility] MEDICARE [facility] MEDICARE [facility] Advance Directives For more information, please contact: [phone] * Full Code (Latest Code Status on File) Date Activated Date Inactivated Comments 02/01/2021 3:33 PM 02/02/2021 5:13 PM Care Teams Stripe Marker Relationship Specialty Start Date End Date Andrew Nelson DO PCP - General Family Medicine 05/18/22
--- OUTSIDE RECORDS SUMMARY | 2024-07-03 14:18 | XMS_ITS | Clinical Summary ---
Author Organization [facility] Address [address] [place] [address]. [place], [place] [address] [place] [address] Care Team Providers Care Puller Over Name Role Phone Andrew Nelson DO Primary Care Provider [phone] Allergies No known active allergies Medications HYDROcodone-dian taminophen 5-325 MG tabletIndicatio ns:Acute Pain < 3 Day Supply Take 1-2 tablets by mouth every 4 (four) hours. Indications: Acute Pain < 3 Day Supply 15 tablet 09/09/2021 Active Social History Tobacco Use Types Packs/Day Years Used Date Smoking Tobacco: Never Smokeless Tobacco: Never Alcohol Use Standard Drinks/Week Comments Never 0 (1 standard drink = 0.6 oz pur e alcohol) Sex and Gender Information Value Date Recorded Sex Assigned at Not on file Legal Sex Male 10:13 AM CDT Gender Identity Not on file Sexual Orientation Not on file Last Filed Vital Signs Vital Sign Reading Time Taken Comments Blood Pressure 105/79 09/09/2021 10:41 AM CDT Pulse 90 09/09/2021 10:41 AM CDT Temperature 36.7 ??C (98 ??F) 09/09/2021 10:41 AM CDT Respiratory Rate 16 09/09/2021 10:41 AM CDT Oxygen Saturation 96% 09/09/2021 10:41 AM CDT Inhaled Oxygen Concentration - - Weight 79.4 kg (175 lb) 09/09/2021 10:41 AM CDT Height 170.2 cm (5' 7 ) 09/09/2021 10:41 AM CDT Body Mass Index 27.41 09/09/2021 10:41 AM CDT Plan of Treatment Health Maintenance Due Date Last Done Comments DTaP, Tdap and Td Vaccines ( 1 - Tdap) 10/28/1959 Annual Medicare Wellness Visit 10/28/2004 Pneumococcal Vaccine: 65+ Years (1 of 1 - PCV) 10/28/2004 RSV Immunization or 60+ Years (1 - 1-dose 75+ series) 10/28/2014 COVID-19 Vaccine (4 - 2023-2 5 season) 2024 03/22/2021, 08/11/2020, 07/14/2020 Influenza Adult (#1) 2024 02/13/2019, 05/18/2017, 02/04/2015 Zoster Vaccines Completed 04/27/2019, 02/18/2019 Meningococcal B Vaccine Aged Out No l onger eligible based on patient's age to complete this topic Meningococcal Vaccine Aged Out No denise oly eligible based on patient's age to complete this topic RSV Immunizations Under 20 Months Aged Out No longer eligible b ased on patient's age to complete this topic Insurance MEDICARE [facility] Care Teams Puller Over Relationship Specialty Start Date End Date Andrew Nelson DO PCP - General FAMILY PRACTICE 09/09/21
--- OUTSIDE RECORDS SUMMARY | 2024-07-03 14:18 | XMS_ITS | Encounter Summary ---
Author Organization [facility] Healthcare Address [address] [place] [address] Care Team Providers Care Mixed Signal Design Engineer Name Role Phone Cj Richards MD Primary Care Provider [phone] Andrew Nelson DO Primary Care Provider [phone] Encounter Details Date Type Department Care Team (Late st Contact Info) Description 07/17/2020 Telephone [facility] - Interventional Radiology [address] [place] [phone] Amber Benitez, RN Social History Tobacco Use Types Packs/Day Years Used Date Smoking Tobacco: Never Smokeless Tobacco: Never Alcohol Use Standard Drinks/Week Comments No 0 (1 standard drink = 0.6 oz pur e alcohol) Sex and Gender Information Value Date Recorded Sex Assigned at Not on file 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
--- OUTSIDE RECORDS SUMMARY | 2024-07-03 14:18 | XMS_ITS | Referral Summary ---
Author Organization [facility] Address [address] [place] [address] Care Team Providers Care Jig Mill Operator Name Role Phone Cj Richards MD Primary Care Provider [phone] Source Comments [facility],non-owned Affiliates and Associated Physician Practices is amultiple site organization consisting of ambulatory clinics and hospital sitesin [place], [place], [place] and [place]. This disclosure is being madepursuant to the Care Everywhere program and may not contain all information available regarding this patient. Last updated 18.[facility] Encounters Date Type Department Care Team Description 05/20/2024 Refill [facility] - Neurology [address] [place] [phone] Noel Barnett MD Refill Request from Last 3 Months Allergies No known active allergies Medications * Be aware that medications may not be up to date on this document. Alwaysverify current medications with the patient. Medication Sig Dispensed Refills Start Date End Date Status omeprazole (PRILOSEC) 20 MG capsule Take 1 (one) capsule by mouth once daily 01/29/2020 Active tamsulosin (FLOMAX) 0.4 MG capsule TAKE 1 CAPSULE BY MOUTH EVERY DAY 1/2 HOUR FOLLOWING SAME MEAL EACH DAY 01/29/2020 Active lisinopril (PRINIVIL; ZESTRIL) 10 MG tablet Take 1 (one) tablet by mouth once daily 12/13/2019 Active levothyroxine (SYNTHROID) 50 MCG tablet Take 1 (one) tablet by mouth once daily 12/13/2019 Active ticagrelor (Brilinta) 60 MG tablet Take 1 (one) tablet by mouth 2 times daily Swallow whole. Do not crush, chew, or open capsule. Active amLODIPine (Norvasc) 5 MG tablet Take 1 (one) tablet by mouth once daily Active amantadine (Symmetrel) 100 MG capsule Take by mouth once daily Active oxyBUTYnin CR 24hr (Ditropan-XL) 10 MG tablet Take 1 (one) tablet by mouth once daily Active traZODone (Desyrel) 50 MG tablet 50 MG ORALLY EVERY DAY AT BEDTIME NEEDED FOR INSOMNIA 03/09/2023 Active aspirin (Aspirin) 81 MG chew tablet Active gabapentin (Neurontin) 300 MG capsule Take 1 (one) capsule by mouth 09/07/2021 Active naproxen (Naprosyn) 500 MG tablet Take 1 (one) tablet by mouth 2 times daily 09/07/2021 Active carbidopa-levodopa (Sinemet) 25-100 MG tabletIndications:P arkinson's Disease TAKE 1.5 (ONE AND ONE-HALF) TABLETS BY MOUTH 4 TIMES DAILY REASONS: PARKINSON'S DISEASE 540 tablet 5 05/20/2024 Active Active Problems Problem Noted Date Diagnosed Date Degeneration of intervertebral disc of lumbar re gion 09/20/2023 09/20/2023 Parkinson's disease 09/20/2023 09/20/2023 Pars defect of lumbar spine 09/20/202309/03 Spondylolisthesis of lumbar region 09/20/2023 09/20/2023 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 09/20/2023 Lumbar stenosis with neurogenic claudication 09/20/2023 Pulmonary hypertension 01/07/2020 Non-rheumatic aortic regurgitation 11/26/2019 09/20/2023 Abnormal EKG 10/14/2019 09/20/2023 Chest tightness 10/14/2019 09/20/2023 RONDON (dyspnea on exertion) 10/14/20192023 Gastroesophageal reflux disease 10/14/2019 09/20/2023 Palpitations 10/14/2019 09/20/2023 Postural dizziness with near syncope 10/14/2019 09/20/2023 PVC (premature ventricular contraction) 10/14/19 20 09/20/2023 Encounter for examination following surgery 10/0409/20/2023 History of laser assisted in situ keratomileusis 03/29/2016 09/20/2023 Cystoid macular edema 03/02/2015 09/20/2023 Atrial fibrillation with RVR 02/28/2015 Overview (09/20/2023): A Fib Benign hypertension 02/28/2015 09/20/2023 Hyperthyroidism 02/28/2015 09/20/2023 Benign neoplasm of choroid 08/26/201409/19 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 (AF LURIA, FLUZONE TRIVALENT; 6MO+) (IIV3) 02/04/2015 INFLUENZA VACCINE, ADJUVANTE D, QUADR. (FLUAD QUADRIVALENT; 65Y+) (AIIV4) 02/11/2020 Zoster Hzv Vacc Recombinant Inj Im 04/27/2019, Social History Tobacco Use Types Packs/Day Years [...] Mass Index 26.38 09/20/2023 10:12 AM CDT Plan of Treatment Upcoming Encounters Date Type Department Care Team (Late st Contact Info) Description 09/25/2024 10:30 AM CDT Office Visit [facility] - Neurology [address] [facility] [place] [address] Nehemias Sigala APRN-HERB DIGGER [address] [place] [phone] Care Teams Jig Mill Operator Relationship Specialty Start Date End Date Cj Richards MD [address] [place] [address] PCP - General 04/12/10
--- OUTSIDE RECORDS SUMMARY | 2024-07-03 14:18 | XMS_ITS | Clinical Summary ---
Author Organization [facility] Address [address] [address] [place] [address] Phone Care Team Providers Care Banking Officer Name Role Phone Robert Richards MD Primary Care Provider [phone] Allergies No known active allergies Medications rivaroxaban (XARELTO) 20 mg Tablet Take 20 mg by mouth daily. Active metoprolol tartrate (LOPRESSOR) 25 mg tablet Take 12.5 mg by mouth 2 times daily. Active propafenone (RYTHMOL) 150 mg Tablet Take 150 mg by mouth every 8 hours. Active omeprazole (PRILOSEC) 20 mg Capsule, Delayed Release(E.C.) Take 20 mg by mouth daily. Active lisinopril-hydro chlorothiazide (ZESTORETIC) 10-12.5 mg tablet Take 0.5 Tablet by mouth daily. Active finasteride (PROSCAR) 5 mg tablet Take 5 mg by mouth daily. Active Active Problems Problem Noted Date Diagnosed Date Atrial fibrillation with RVR 02/28/2015 Benign hypertension 02/28/2015 Hyperthyroidism 02/28/2015 Paroxysmal atrial fibrillation WPW (Cinnd-Dcvnupakh-Gwyjx syndrome) Immunizations Immunization Administration Dates Next Due Influenza Seasonal Unspecified Formulation IM Social History Tobacco Use Types Packs/Day Years Used Date Smoking Tobacco: Never Smokeless Tobacco: Never Alcohol Use Standard Drinks/Week Comments No 0 (1 standard drink = 0.6 oz pur e alcohol) RARE Sex and Gender Information Value Date Recorded Sex Assigned at Not on file Legal Sex Male 8:28 PM CDT Gender Identity Not on file Sexual Orientation Not on file Last Filed Vital Signs Vital Sign Reading Time Taken Comments Blood Pressure 146/83 01/25/2016 2:00 AM CDT Pulse 51 01/25/2016 2:00 AM CDT Temperature 36.7 ??C (98.1 ??F) 01/25/2016 12:21 AM C DT Respiratory Rate 16 01/25/2016 2:00 AM CDT Oxygen Saturation 98% 01/25/2016 2:00 AM CDT Inhaled Oxygen Concentration - - Weight 81.6 kg (180 lb) 01/25/2016 12:21 AM CDT Height 172.7 cm (5' 8 ) 01/25/2016 12:21 AM CDT Body Mass Index 27.37 01/25/2016 12:21 AM CDT Plan of Treatment Health Maintenance Due Date Last Done Comments DTAP/TDAP/TD VACCINES (1 - Tdap) 10[birth year]28/1959 PNEUMOCOCCAL VACCINE 65+ YEARS (1 of 1 - PCV) 10/28/18 90 ZOSTER VACCINE (1 of 2) 10/28/1989 RSV VACCINE (60+ or ) (1 - 1-dose 75+ series) 10/28/2014 INFLUENZA VACCINE (#1) 2024 02/04/2015 Insurance MEDICARE PART A AND B [id number] ACCESS/TRUE BLUE PPO Care Teams Banking Officer Relationship Specialty Start Date End Date Robert Richards MD PCP - General Internal Medicine 02/28/15
--- OUTSIDE RECORDS SUMMARY | 2024-07-03 14:18 | XMS_ITS | Referral Summary ---
Author Organization [facility] Address [address] [place] [address] Care Team Providers Care Pilates Coordinator Name Role Phone Andrew Nelson Primary Care Provider [phone] Allergies No known active allergies Medications levothyroxine [...] Palpitations 10/14/2019 PVC (premature ventricular contraction) 10/14/19 20 Gastroesophageal reflux disease 10/14/2019 Hypothyroidism 10/14/2019 Essential hypertension 10/14/2019 Abnormal EKG 10/14/2019 Postural dizziness with near syncope 10/14/2019 Chest tightness 10/14/2019 Atrial fibrillation (CMS/HCC) 03/09/2015 Overview (09/09/2016): A Fib Social History Tobacco Use Types Packs/Day Years [...] on file 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
--- OUTSIDE RECORDS SUMMARY | 2024-07-03 14:18 | XMS_ITS | Encounter Summary ---
Author Organization [facility] Address [facility] [place] [address] Care Team Providers Care Web Operations Manager Name Role Phone Cj Richards MD Primary Care Provider [phone] Encounter Details Date Type Department Care Team (Late Contact Info) Description 10/24/[address] [facility] DermPath Lab [address] [place] [phone] Kamryn Garcia MD [address] [place] [address] [address] [place] [address] Social History Tobacco Use Types Packs/Day Years Used Date Smoking Tobacco: Never Smokeless Tobacco: Never Alcohol Use Standard Drinks/Week Comments Not Asked 0 (1 standard drink = 0.6 oz pur e alcohol) Sex and Gender Information Value Date Recorded Sex Assigned at Not on file Gender Identity Not on file Sexual Orientation Not on file documented as of this encounter Plan of Treatment Upcoming Encounters Date Type Department Care Team (Late Contact Info) Description 09/25/2024 10:30 AM CDT Office Visit [facility] - Neurology [address] [place] [address], [place] [phone] Nehemias Sigala APRN-CNP [address] [place] [address] [address] [place] [phone] documented as of this encounter Procedures Procedure Name Priority Date/Time Associated Diagnosis Comments DERMATOPATHOLOGY Routine 10/23/2018 12:0 0 AM CDT documented in this encounter Results * DERMATOPATHOLOGY (10/23/2018 12:00 AM CDT) Case Report Dermatopathology Report ? Case: [id number] ? Authorizing Provider: ??Kamryn Garcia MD ? 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 9 10:13 AM CDT DERMATOPATHOLOGY LABORATORY Gross Description Specimen A: Received is one formalin filled container labeled with the patient's name and designated right chin. The specimen consists of a shave measuring [id number]. Jar 0. Specimen B: Received is one formalin filled container labeled with the patient's name and designated left cheek. The specimen consists of a shave measuring [id number]. Jar 0. 9 10:13 AM T DERMATOPATHOLOGY LABORATORY Microscopic Description Specimen A. SKIN, [...] present at the margin of the specimen. 9 10:13 AM T DERMATOPATHOLOGY LABORATORY Disclaimer An external and internal positive and negative controls are appropriate for the histochemical, immunohistochemical and immunofluorescence stain(s) in this case (if any), except where stated explicitly. The performance characteristics of the stain(s) cited in this report were developed and its performance characteristic determined by the Dermatopathology Laboratory at [facility], directed by Dr. Mike Tavares. These tests need not be, and therefore are not, approved by the [place] Food and Drug Administration. The tests are used for clinical purposes. Billing Codes Specimen Charges Stain Charges 39189 20139 1 1 9 10:13 AM CDT DERMATOPATHOLOGY LABORATORY Embedded Images 9 10:13 AM CDT DERMATOPATHOLOGY LABORATORY Pathology/Cytology TISSUE SPECIMEN FROM SKIN / Unknown 10/23/2018 10/24/2018 7:46 AM CDT Miscellaneous samples (specimen) TISSUE SPECIMEN FROM SKIN / Unknown 10/23/2018 10/24/2018 7:46 AM CDT Kamryn Garcia MD LAB - PATHOLOGY/CYT OLOGY ORDERABLES DERMATOPATHOLOGY LABORATORY [facility] - Department of Dermatology [address] [place] [address] 5th Floor Lab [address] [phone] documented in this encounter Visit Diagnoses Not on filedocumented in this encounter Care Teams Web Operations Manager Relationship Specialty Start Date End Date Cj Richards MD [address] [place] [address] PCP - General 04/12/10 documented as of this encounter
--- OUTSIDE RECORDS SUMMARY | 2024-07-03 14:18 | XMS_ITS | Encounter Summary ---
Author Organization [facility] Healthcare Address [address] [place] [address] Care Team Providers Care Assurance Specialist Name Role Phone Cj Richards MD Primary Care Provider [phone] Andrew Nelson DO Primary Care Provider [phone] Encounter Details Date Type Department Care Team (Late st Contact Info) Description 07/29/2020 Telephone [facility] - Interventional Radiology [address] [place] [phone] Amber Benitez, RN Social History Tobacco Use Types Packs/Day Years Used Date Smoking Tobacco: Never Smokeless Tobacco: Never Alcohol Use Standard Drinks/Week Comments No 0 (1 standard drink = 0.6 oz pur e alcohol) Sex and Gender Information Value Date Recorded Sex Assigned at Not on file 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
--- OUTSIDE RECORDS SUMMARY | 2024-07-03 14:18 | XMS_ITS | Clinical Summary ---
Author Organization [facility] Address [address] [place] [address] Care Team Providers Care Lime Plant Operator Name Role Phone Cj Richards MD Primary Care Provider [phone] Source Comments [facility],non-owned Affiliates and Associated Physician Practices is amultiple site organization consisting of ambulatory clinics and hospital sitesin [place], [place], [place] and [place]. This disclosure is being madepursuant to the Care Everywhere program and may not contain all information available regarding this patient. 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 (AF LURIA, FLUZONE TRIVALENT; 6MO+) (IIV3) 02/04/2015 INFLUENZA VACCINE, ADJUVANTE D, QUADR. (FLUAD QUADRIVALENT; 65Y+) (AIIV4) 02/11/2020 Zoster Hzv Vacc Recombinant Inj Im 04/27/2019, Family History Medical History Relation Name Comments Cancer Father Cancer Maternal Aunt Cancer Maternal Uncle Relation Name Status Comments Father Maternal Aunt Maternal Uncle Social History Tobacco Use Types Packs/Day Years [...] Office Visit [facility] - Neurology [address] [place] [phone] Nehemias Sigala, SOFTWARE QUALITY TEST ENGINEER-FAMILY PRESERVATION WORKER [address] [place] [phone] Health Maintenance Due Date Last Done Comments MEDICARE AWV ? 12 MONTHS 1940 DTAP/TDAP/TD VACCINES (1 - Tdap) 10/28/1958 PNEUMOCOCCAL VACCINE 50+ (1 of 1 - PCV) 10/28/1989 Respiratory Syncytial Virus (RSV) Vaccine Pt: or over 60 yrs (1 - 1-dose 75+ series) 10/28/2014 COVID-19 VACCINE ( - 2023-2 5 season) 2024 INFLUENZA VACCINE (#1) 2024 0, 02/04/2015 DEPRESSION SCREENING 06/05/2024 09/08/2022 ZOSTER VACCINE Completed 04/27/2019, 02/18/2019 HEPATITIS B VACCINE Aged Out No longe r eligible based on patient's age to complete this topic HIB VACCINE Aged Out No longer eligi ble based on patient's age to complete this topic HPV VACCINE Aged Out No longer eligi ble based on patient's age to complete this topic MENINGOCOCCAL (Group B) VACCINE Aged Out No longer eligible b ased on patient's age to complete this topic MENINGOCOCCAL VACCINE Aged Out No denise oly eligible based on patient's age to complete this topic Care Teams Lime Plant Operator Relationship Specialty Start Date End Date Cj Richards MD [address] [place] [address] PCP - General 04/12/10
--- OUTSIDE RECORDS SUMMARY | 2024-07-03 14:18 | XMS_ITS | Encounter Summary ---
Author Organization [facility] Address [address] [place] [address] Care Team Providers Care Bi Report Developer Name Role Phone Cj Richards MD Primary Care Provider [phone] Andrew Nelson DO Primary Care Provider [phone] Encounter Details Date Type Department Care Team (Late st Contact Info) Description 07/29/2020 Telephone [facility] - Imaging [facility] [place] [address] Transcribed Order, Provider Social History Tobacco Use Types Packs/Day Years Used Date Smoking Tobacco: Never Smokeless Tobacco: Never Alcohol Use Standard Drinks/Week Comments No 0 (1 standard drink = 0.6 oz pur e alcohol) Sex and Gender Information Value Date Recorded Sex Assigned at Not on file Legal Sex Male 10:20 AM FOUNDRY HELPER Gender Identity Not on file Sexual Orientation Not on file documented as of this encounter Plan of Treatment Not on file documented as of this encounter Visit Diagnoses Not on filedocumented in this encounter Care Teams Bi Report Developer Relationship Specialty Start Date End Date Cj Richards MD [address] [place] [address] PCP - General 03/12/15 05/17/22 Andrew Nelson DO [address] [place] [address] PCP - General Family Medicine 05/18/22 documented as of this encounter
--- OUTSIDE RECORDS SUMMARY | 2024-07-03 14:18 | XMS_ITS | Encounter Summary ---
Author Organization [facility] Address [facility] [facility] [place] [address] Care Team Providers Care Nursing Unit Clerk Name Role Phone Cj Richards MD Primary Care Provider Encounter Details Date Type Department Care Team (Late Contact Info) Description 11/06/2019 Lab Requisition [facility] D[facility] [address] [place] [phone] Kamryn Garcia MD [address] [place] [address] [address] [place] [address] Social History Tobacco Use Types Packs/Day Years [...] Description 09/25/2024 10:30 AM CDT Office Visit [facility] - Neurology [address] [place] [address], [place] [phone] Nehemias Sigala APRN-CNP [address] [place] [address] [address] [place] [phone] documented as of this encounter Procedures Procedure Name Priority Date/Time Associated Diagnosis Comments DERMATOPATH TECHNICAL REPORT Routine 11/05/2019 12:00 AM CDT documented in this encounter Results * DERMATOPATH TECHNICAL REPORT (11/05/2019 12:00 AM CDT) Case Report Dermatopathology Report ? Case: [id number] ? Authorizing Provider: ??Kamryn Garcia MD ? Collected: ? 11/05/2019 12:00 AM ? Ordering Location: ? [facility] DermPath Lab ?Received: ?11/06/2019 06:40 AM ? Pathologist: ? Sarah Quiroz MD ? Specimen: ?Skin, dorsal nose ? 0 3:28 PM CDT DERMATOPATHOLOGY LABORATORY Clinical History R/O BCC, irritated, non-healing. 0 3:28 PM CDT DERMATOPATHOLOGY LABORATORY Gross Description Specimen A: Received is one formalin filled container labeled with the patient's name and designated dorsal nose. The specimen consists of a shave measuring 4b8l2ft. Jar 0. [facility] Dermatopathology Laboratory performed the technical component only. 0 3:28 PM CDT DERMATOPATHOLOGY LABORATORY Embedded Images 0 3:28 PM CDT DERMATOPATHOLOGY LABORATORY DISCLAIMER An external and internal positive and negative controls are appropriate for the histochemical, immunohistochemical and immunofluorescence stain(s) in this case (if any), except where stated explicitly. The performance characteristics of the stain(s) cited in this report were developed and its performance characteristic determined by the Dermatopathology Laboratory at [facility], directed by Dr. Mike Tavares. These tests need not be, and therefore are not, approved by the [place] Food and Drug Administration. The tests are used for clinical purposes. 0 3:28 PM CDT DERMATOPATHOLOGY LABORATORY Pathology/Cytolog y TISSUE SPECIMEN FROM SKIN / Unknown 11/05/2019 11/06/2019 6:40 AM CDT Kamryn Garcia MD LAB - PATHOLOGY/CYT OLOGY ORDERABLES DERMATOPATHOLOGY LABORATORY [facility] - Department of Dermatology [facility]/[address] [phone] documented in this encounter Visit Diagnoses Not on filedocumented in this encounter Care Teams Nursing Unit Clerk Relationship Specialty Start Date End Date Cj Richards MD [address] [place] [phone] PCP - General 04/12/10 documented as of this encounter
[2024-07-03 20:05] LABS: Add Urine Microscopic? NO; Appearance Urine Clear (Clear); Bilirubin Urine Negative (Negative); Blood Urine Negative (Negative); Color Urine Yellow (Yellow); Glucose Urine UA Negative (Negative); Ketones Urine Negative (Negative); Leukocyte Esterase Ur Negative LEU/UL (Negative); Nitrate Urine Negative (Negative); Protein Urine Negative (Negative); Specific Grav Ur 1.019 (1.001-1.035); Urobilinogen Urine 0.2 mg/dL (<2.0); pH Urine 6.5 (5.0-9.0)
== END 2024-07-03 13:28 | disposition home or self-care (01) ==
LOC: ANHGOSHLAB 13:28
PROVIDERS: PCP Internal Medicine; Visit Provider Internal Medicine
DX: R35.0 Frequency of micturition (principal)
CPT/HCPCS: 81003

== ENCOUNTER 2024-08-12 00:50 | Day surgery (SDC) | payer MEDICARE, SELFPAY ==
[2024-08-09 13:34] VITALS: BMI 27.4
[2024-08-12] VITALS (17 sets, daily range): BP systolic 100–151; BP diastolic 59–84; PULSE 67–97; RESP 12–18; TEMP 36.3; O2SAT 96–100
--- OUTSIDE RECORDS SUMMARY | 2024-08-12 00:54 | XMS_ITS | Patient Health Summary ---
Author Organization [facility] Address [address] [place] [address] Care Team Providers Care Tuber Machine Operator Helper Name Role Phone Cj Richards MD Primary Care Provider Note from [facility],non-owned Affiliates and Associated Physician Practices is amultiple site organization consisting of ambulatory clinics and hospital sitesin [place], [place], [place] and [place]. This disclosure is being madepursuant to the Care Everywhere program and may not contain all information available regarding this patient. Last updated 18.[facility] Allergies No known active allergies Medications * [...] Spondylolisthesis of lumbar region 09/20/2023 09/20/2023 WPW (Biskb-Zflsqwwlu-Gnnwt syndrome) 09/20/2023 09/20/2023 Lumbar stenosis with neurogenic [...] 67 09/20/2023 10:12 AM CDT Temperature 36.8 C (98.3 F) 03/21/2023 12:43 PM CDT Respiratory Rate 16 03/21/2023 12:43 PM CDT [...] * CARDIAC EKG ORDER (06/03/2020 3:22 PM [facility]) Narrative 06/03/2020 3:22 PM [facility] Ordered by an unspecified provider. Scanned Document CARDIAC SERVICES ORD ERABLES * XR CERVICAL SPINE 2 OR 3VW (05/25/2020 1:49 PM ELECTR[facility]) Anatomical Region Laterality Modality Spine Radiographic Ibis ging 05/25/2020 1:48 PM [facility] Impressions 05/25/2020 1:50 PM [facility] IMPRESSION: Moderate cervical spondylosis. This report was electronically signed by GERBER NAZARIO MD on 05/25/2020 1:50 PM . Narrative 05/25/2020 1:50 PM [facility] Exam: XR CERVICAL SPINE 2 VW History: [...] CERVICAL SPINE WO CONTRAST (05/25/2020 1:04 PM E[facility]RICIAN [facility]IO) Anatomical Region Laterality Modality Spine Computed Tomogra phy 05/25/2020 1:27 PM [facility] Impressions 05/25/2020 1:36 PM [facility] IMPRESSION: 1.No acute osseous abnormality. 2.Multilevel degenerative changes with moderate spinal canal stenosis at C3-4 and C5-6. Apparent cord compression at these levels. 3.Moderate to severe foraminal stenoses at bilateral C3-4, left C4-5 and right C5-6. This report was electronically signed by DAISY CURRY on 05/25/2020 1:36 PM . Narrative 05/25/2020 1:[address] scan of the cervical spine without [...] MYOCARD PERF REST STRESS (05/25/2020 11:59 AM E[facility]RIC[facility]) Anatomical Region Laterality Modality Chest Nuclear Medicine 05/25/2020 1:46 PM [facility] Impressions 05/25/2020 6:25 PM [facility] IMPRESSION: 1. No evidence of myocardial infarction [...] was electronically signed by MAR PALACIOS M.D. on 05/25/2020 6:25 PM . Narrative 05/25/2020 6:25 PM [facility] STUDY: Rest and Pharmacologic stress SPECT/CT myocardial [...] The BP was 145/72 mmHg at rest xdx420/50 mmHg after the stress procedure. A separate [...] MAR PALACIOS M.D. on05/25/2020 6:25 PM . Keina Mccormick MD NM ORDERABLES * XR SPINE ENTIRE 2 OR 3VW (05/11/2020 11:27 AM E[facility]) Anatomical Region Laterality Modality Spine Radiographic Ibis ging 05/11/2020 11:4 8 AM E[facility]IAN [facility]IO Impressions 05/11/2020 12:09 PM [facility] IMPRESSION: 1.Grade 1 anterolisthesis of L5 on S1. 2.Moderate degenerative disc disease. Report dictated by Yonny Jauregui MD (fixed income trading vice president). Dr. PETRONA Sandoval have personally reviewed and interpreted this examination/study. This report was electronically signed by PETRONA MATSON on 05/11/2020 12:09 PM . Narrative 05/11/2020 12:09 PM [facility] EXAMINATION: XR SPINE ENTIRE 2 OR 3VW [...] disease. Report dictated by Yonny Jauregui MD (fixed income trading vice president). Dr. PETRONA Sandoval have personally reviewed and interpreted this examination/study. This report was electronically signed by PETRONA MATSON on 05/11/2020 12:09 PM . Kenia Mccormick MD DIAGNOSTIC IMAGING O RDERABLES * MRI LUMBAR SPINE WO CONTRAST (04/18/2020 12:02 PM ELECTRICIAN [facility]IO) Anatomical Region Laterality Modality Spine Magnetic Resonan ce 04/20/2020 1:31 PM [facility]RICIAN [facility]IO Addenda Addendum by Gen Recio MD on 04/20/2020 4:49 PM [facility] ORIGINAL REPORT MRI CERVICAL SPINE WO CONTRAST, [...] thickening of the ligamentum flavum. There is mtfp-yk-ithhukag central canal stenosis. There is moderate stenosis [...] GEN RECIO on 04/20/2020 4:41 PM . ADDENDUM #1 L5-S1: First sentence should read: L5-S1: There is grade 1 anterolisthesis of L5 on S1 with uncovering of the disc and diffuse disc bulge and associated bilateral L5 pars interarticularis defects. This report was electronically signed by GEN RECIO on 04/20/2020 4:46 PM . Impressions 04/20/2020 4:41 PM [facility] IMPRESSION: 1.Multilevel degenerative disc and joint disease [...] GEN RECIO on 04/20/2020 4:41 PM . Narrative 04/20/2020 4:41 PM [facility] MRI CERVICAL SPINE WO CONTRAST, MRI LUMBAR [...] thickening of the ligamentum flavum. There is hfxf-zd-evdrxgwo central canal stenosis. There is moderate stenosis [...] is thickening of theligamentum flavum. There is ngkg-fc-topotufl central canal stenosis. There is moderate stenosis [...] CERVICAL SPINE WO CONTRAST (04/18/2020 12:02 PM ELECTRICIAN RADIO) Anatomical Region Laterality Modality Pelvis Magnetic Resonan ce 04/20/2020 1:31 PM [facility]IAN [facility]IO Addenda Addendum by Gen Recio MD on 04/20/2020 4:49 PM [facility] ORIGINAL REPORT MRI CERVICAL SPINE WO CONTRAST, [...] thickening of the ligamentum flavum. There is nuvw-xv-xjlbjcms central canal stenosis. There is moderate stenosis [...] GEN RECIO on 04/20/2020 4:41 PM . ADDENDUM #1 L5-S1: First sentence should read: L5-S1: There is grade 1 anterolisthesis of L5 on S1 with uncovering of the disc and diffuse disc bulge and associated bilateral L5 pars interarticularis defects. This report was electronically signed by GEN RECIO on 04/20/2020 4:46 PM . Impressions 04/20/2020 4:41 PM [facility] IMPRESSION: 1.Multilevel degenerative disc and joint disease [...] GEN RECIO on 04/20/2020 4:41 PM . Narrative 04/20/2020 4:41 PM [facility]IAN [facility] MRI CERVICAL SPINE WO CONTRAST, MRI LUMBAR [...] thickening of the ligamentum flavum. There is nzep-qg-rkrjwfqb central canal stenosis. There is moderate stenosis [...] is thickening of theligamentum flavum. There is ookw-kk-mgvgettn central canal stenosis. There is moderate stenosis [...] 1 anterolisthesis. Dictated by Nathan Novak MD (fixed income trading vice president). I, Dr. GERBER NAZARIO MD have personally reviewed and interpreted this examination/study. This report was electronically signed by GERBER NAZARIO MD on 02/07/2020 3:32 PM . Narrative 02/07/2020 3:32 [...] 1 anterolisthesis. Dictated by Nathan Novak MD (fixed income trading vice president). I, Dr. GERBER NAZARIO MD have personally reviewed and interpreted this examination/study. This report was electronically signed by GERBER NAZARIO MD on02/07/2020 3:32 PM . Amaya Romo RIVERINE ASSAULT CRAFT CREWMAN-RAD TECH DIAGNOSTIC IMAG ING ORDERABLES * DERMATOPATH TECHNICAL REPORT (11/05/2019 12:00 AM CDT) Case Report Dermatopathology Report Case: [id number] Authorizing Provider: Kamryn Garcia MD Collected: 11/05/2019 12:00 AM Ordering Location: [facility] DermPath Lab Received: 11/06/2019 06:40 AM Pathologist: Sarah Quiroz MD Specimen: Skin, dorsal nose 0 3:28 PM CDT DERMATOPATHOLOGY LABORATORY Clinical History R/O BCC, irritated, non-healing. 0 3:28 PM CDT DERMATOPATHOLOGY LABORATORY Gross Description Specimen A: Received is one formalin filled container labeled with the patient's name and designated dorsal nose. The specimen consists of a shave measuring 5b0s6gh. Jar 0. [facility] Dermatopathology Laboratory performed the technical component [...] characteristic determined by the Dermatopathology Laboratory at [facility], directed by Dr. Mike Tavares. These tests need not be, and therefore are not, approved by the [place] Food and Drug Administration. The tests are used for clinical purposes. 0 3:28 PM CDT DERMATOPATHOLOGY LABORATORY Pathology/Cytolog y TISSUE SPECIMEN FROM SKIN / Unknown 11/05/2019 11/06/2019 6:40 AM CDT Kamryn Garcia MD LAB - PATHOLOGY/CYT OLOGY ORDERABLES DERMATOPATHOLOGY LABORATORY [facility] - Department of Dermatology [facility]/[address] [phone] * DERMATOPATHOLOGY (10/23/2018 12:00 AM CDT) Case Report Dermatopathology Report Case: [id number] Authorizing Provider: Kamryn Garcia MD Collected: 10/23/2018 12:00 AM Pathologist: Zayda Tavares MD Received: 10/24/2018 07:46 AM Specimens: A) - Skin, right chin B) - Skin, left cheek 9 10:13 AM CDT DERMATOPATHOLOGY LABORATORY Final Diagnosis Specimen A. SKIN, right chin: BASAL CELL CARCINOMA (C44.319) PRESENT AT MARGIN (see microscopic description and comment) Specimen B. 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 10:13 AM [facility] DERMATOPATHOLOGY LABORATORY Gross Description Specimen A: Received is one formalin filled container labeled with the patient's name and designated right chin. The specimen consists of a shave measuring 9h2r1kn. Jar 0. Specimen B: Received is one formalin filled container labeled with the patient's name and designated left cheek. The specimen consists of a shave measuring 6s2k2cv. Jar 0. 10:13 AM [facility] DERMATOPATHOLOGY LABORATORY Microscopic Description Specimen A. SKIN, [...] the margin of the specimen. 10:13 AM [facility] DERMATOPATHOLOGY LABORATORY Disclaimer An external and internal positive and negative controls are appropriate for the histochemical, immunohistochemical and immunofluorescence stain(s) in this case (if any), except where stated explicitly. The performance characteristics of the stain(s) cited in this report were developed and its performance characteristic determined by the Dermatopathology Laboratory at [facility], directed by Dr. Mike Tavares. These tests need not be, and therefore are not, approved by the [place] Food and Drug Administration. The tests are used for clinical purposes. Billing Codes Specimen Charges Stain Charges 24340 01471 1 1 9 10:13 AM T DERMATOPATHOLOGY LABORATORY Embedded Images 10:13 AM T DERMATOPATHOLOGY LABORATORY Pathology/Cytology TISSUE SPECIMEN FROM SKIN / Unknown 10/23/2018 10/24/2018 7:46 AM CDT Miscellaneous samples (specimen) TISSUE SPECIMEN FROM SKIN / Unknown 10/23/2018 10/24/2018 7:46 AM CDT Kamryn Garcia MD LAB - PATHOLOGY/CYT OLOGY ORDERABLES DERMATOPATHOLOGY LABORATORY [facility] - Department of Dermatology [facility], 5th Floor Lab [address] [phone] Care Teams Tuber Machine Operator Helper Relationship Specialty Start Date End Date Cj Richards MD [address] [place] [phone] PCP - General 04/12/10
--- OUTSIDE RECORDS SUMMARY | 2024-08-12 00:54 | XMS_ITS | Encounter Summary ---
Author Organization [facility] Healthcare Address [address] [place] [address] Care Team Providers Care Vial Gauger Name Role Phone Cj Richards MD Primary Care Provider [phone] Andrew Nelson DO Primary Care Provider [phone] Encounter Details Date Type Department Care Team (Late st Contact Info) Description 07/17/2020 Telephone [facility] - Interventional Radiology [address] [place] [address] Amber Benitez, RN Social History Tobacco Use Types Packs/Day Years Used Date Smoking Tobacco: Never Smokeless Tobacco: Never Alcohol Use Standard Drinks/Week Comments No 0 (1 standard drink = 0.6 oz pur e alcohol) Sex and Gender Information Value Date Recorded Sex Assigned at Not on file Legal Sex Male 10:20 AM TOMOGRAPHIC TECH Gender Identity Not on file Sexual Orientation Not on file documented as of this encounter Plan of Treatment Not on file documented as of this encounter Visit Diagnoses Not on filedocumented in this encounter Care Teams Vial Gauger Relationship Specialty Start Date End Date Cj Richards MD [address] [place] [address] PCP - General 03/12/15 05/17/22 Andrew Nelson DO [address] [place] [address] PCP - General Family Medicine 05/18/22 documented as of this encounter
--- OUTSIDE RECORDS SUMMARY | 2024-08-12 00:54 | XMS_ITS | Continuity of Care Document ---
Author Organization [employer] [place] Address [address] [place] [address] Phone Care Team Providers Care Manager Utility Name Role Phone Noah PT,MPT,ATC, Seth Unavailable Unavai lable Procedures Procedure Date Neuromuscular Re-Ed Therapeutic Activities Neuromuscular Re-Ed Therapeutic Activities Therapeutic Exercise Therapeutic Activities Neuromuscular Re-Ed Therapeutic Exercise Therapeutic Activities Therapeutic Exercise Neuromuscular Re-Ed Therapeutic Activities Neuromuscular Re-Ed Therapeutic Exercise Therapeutic Activities Therapeutic Exercise Neuromuscular Re-Ed Therapeutic Activities Neuromuscular Re-Ed Therapeutic Exercise Therapeutic Activities Neuromuscular Re-Ed Therapeutic Exercise Therapeutic Activities PT Evaluation Low Complexity Therapeutic Exercise Therapeutic Activities Therapeutic Exercise Therapeutic Activities Neuromuscular Re-Ed Therapeutic Exercise Hot or Cold Pack Therapeutic Activities Therapeutic Exercise Neuromuscular Re-Ed Neuromuscular Re-Ed Therapeutic Exercise Therapeutic Activities Therapeutic Activities Neuromuscular Re-Ed Therapeutic Exercise Therapeutic Activities Neuromuscular Re-Ed Therapeutic Exercise Therapeutic Activities Progress Note Hot or Cold Pack Therapeutic Exercise Therapeutic Activities Neuromuscular Re-Ed Therapeutic Exercise Therapeutic Activities Therapeutic Exercise Hot or Cold Pack Neuromuscular Re-Ed Progress Note Therapeutic Activities Therapeutic Exercise Therapeutic Activities Therapeutic Exercise Neuromuscular Re-Ed Hot or Cold Pack Therapeutic Activities Therapeutic Exercise Therapeutic Exercise Therapeutic Activities Therapeutic Activities Neuromuscular Re-Ed Therapeutic Exercise Hot or Cold Pack Therapeutic Activities Hot or Cold Pack Neuromuscular Re-Ed Therapeutic Exercise Therapeutic Activities Neuromuscular Re-Ed Therapeutic Exercise Therapeutic Activities Neuromuscular Re-Ed Hot or Cold Pack Therapeutic Exercise Therapeutic Activities Therapeutic Exercise Therapeutic Activities Hot or Cold Pack Neuromuscular Re-Ed Therapeutic Exercise Therapeutic Activities Therapeutic Exercise Therapeutic Activities Therapeutic Exercise Therapeutic Activities Neuromuscular Re-Ed Therapeutic Exercise Hot or Cold Pack OT Evaluation Low Complexity Therapeutic Exercise Therapeutic Activities Neuromuscular Re-Ed PT Evaluation Moderate Complexity Therapeutic Activities Therapeutic Exercise THERAPEUTIC EXERCISES NEUROMUSCULAR RE-ED MANUAL THERAPY FUNC ACTIVITY Medications Name Dose Freq Route DOC May kris Price PT RE-EVALUATION THERAPEUTIC EXERCISES NEUROMUSCULAR RE-ED MANUAL THERAPY FUNC ACTIVITY Carrying, Moving And Handling Objects-Cu rrent Carrying, Moving And Handling Objects-Go al Medications Name Dose Freq Route DOC May THERAPEUTIC EXERCISES NEUROMUSCULAR RE-ED MANUAL THERAPY FUNC ACTIVITY Medications Name Dose Freq Route [facility] May THERAPEUTIC EXERCISES NEUROMUSCULAR RE-ED MANUAL THERAPY FUNC ACTIVITY Medications Name Dose Freq Route [facility] May THERAPEUTIC EXERCISES NEUROMUSCULAR RE-ED MANUAL THERAPY FUNC ACTIVITY Medications Name Dose Freq Route DOC May THERAPEUTIC EXERCISES NEUROMUSCULAR RE-ED MANUAL THERAPY HOT/COLD PACK ELECTRIC STIMULATION Medications Name Dose Freq Route [facility] May PT EVALUATION THERAPEUTIC EXERCISES MANUAL THERAPY HOT/COLD PACK ELECTRIC STIMULATION UNATT Carrying, Moving And Handling Objects-Cu rrent Carrying, Moving And Handling Objects-Go al Medications Name Dose Freq Route [facility] May Pain Assess Positive [facility] 2013 BMI Normal and DOC 18-64 yo=18.5-25.0 65 + yo=23.0-30.0 No Falls or 1 Fall w/o Injury Screened f or Fall Risk Functional Outcome Assessmen t documented, deficits identified, treatment plan Advance Directives Directive Yes / No Effective Date File Name No Information Encounters Encounter Description Practice Location Reason(s) For Visit Diagnoses Date Provider Providers Copied on Encounter [facility] [address], [place], [place], [id number], tel:[phone] [place] No Information 1 Noah [place], . Referring Provider: Marlo Mena, [address] [place] [address], [place], [address]. tel:[phone] [place] [address], [place], [place], [id number], [place] tel:[phone] [place] No Information 1 Noah Douglas , [place], [place]. Referring Provider: Marlo Mena, [address] [place] [address], [place], [address]. tel:[phone] [address], [place], [place], [id number], [place] tel:[phone] [place] No Information 1 [place]. Referring Provider: Marlo Mena, [address] [place] [address], [place], [address]. tel:[phone] [place] [address], [place], [place], [id number], [place] tel:[phone] [place] No Information 1 Noah [place]. Referring Provider: Marlo Mena, [address] [place] [address], [place], [address]. tel:[phone] [facility] [address], [place], [place], [id number], [place] tel:[phone] [place] No Information 1 Noah [place]. Referring Provider: Marlo Mena, [address] [place] [address], [place], [address]. tel:[phone] [facility] [address], [place], [address], [place] tel:[phone] [place] No Information Oct-2 6- 1 Noah [place]. Referring Provider: Marlo Mena, [address] [place] [address], [place], [address]. tel:[phone] [facility], [address], [place], [place], [id number], [place] tel:[phone] [place] No Information Mar-1 - 1 Makler Luke. . Referring Provider: Marlo Mena, [address] [place] [address], [place], [address]. tel:[phone], [place], [place], [id number], [place] tel:[phone] [place] No Information Mar-1 1 Makler Luke. . Referring Provider: Marlo Mena, [address] [place] [address], [place], [address]. tel:[phone] [facility] [address], [place], [place], [id number], [place] tel:[phone] [place] No Information Mar-1 - 1 Makler Luke. . Referring Provider: Malro Mena, [address] [place] [address], [place], [address]. tel:[phone] [facility] [address], [place], [address], [place] tel:[phone] [place] No Information Oct-0 6-202 0 Makler Luke. . [facility], [address], [place], [place], [address], [place] tel:[phone] [place] No Information Oct-0 6-202 0 [place] Joycelyn. . [facility], [address], [place], [place], [address], [place] tel:[phone] [place] No Information Sep-3 0-202 0 Noah Douglas , [place], [place]. [facility], [place], [place], [address], [place] tel:[phone] [place] No Information Sep-3 0-202 0 Makler Luke. . [facility], [place], [place], [address], [place] tel:[phone] [place] No Information Sep-2 9-202 0 Makler Luke. . [facility], [place], [place], [address], [place] tel:[phone] [place] No Information Sep-2 9-202 0 Noah Salcidon. , [place], [place]. [facility], [place], [place], [address], [place] tel:[phone] [place] No Information Sep-2 5-202 0 [place] Mary Jane. . [facility], [place], [place], [address], [place] tel:[phone] [place] No Information Sep-2 5-202 0 Makler Luke. . [facility], [place], [place], [address], [place] tel:[phone] [place] No Information Sep-2 3-202 0 Gil Mary Jane. . [facility], [place], [place], [address], [place] tel:[phone] [place] No Information Sep-2 3-202 0 Makler Luke. . [facility], [place], [place], [address], [place] tel:[phone] [place] No Information Sep-1 6-202 0 Gil Mary Jane. . [facility], [place], [place], [address], [place] tel:[phone] [place] No Information Sep-1 6-202 0 Threlfer[place] Joycelyn. . [facility], [place], [address], [place] tel:[phone] [place] No Information Sep-1 - 0 Makler Luke. . [facility], [place], [place], [address], [place] tel:[phone] [place] No Information Sep-1 1- 0 [place] Mary Jane. . [facility], [place], [address], [place] tel:[phone] [place] No Information Sep-0 9 0 [place] Mary Jane. . [facility], [place], [place], [address], tel:[phone] [place] No Information Sep-0 9 0 Makler Luke. . [facility], [place], [place], [address], [place] tel:[phone] [place] No Information Sep-0 - 0 [place] Joycelyn. . [facility], [place], [place], [address], [place] tel:[phone] [place] No Information Sep-0 0 Makler Luke. . [facility], [place], [address], [place] tel:[phone] [place] No Information Aug-2 0 [place] Mary Jane. . [facility], [place], [address], [place] tel:[phone] [place] No Information Jan-2 0 Makler Luke. . [facility], [place], [address], [place] tel:[phone] [place] No Information Jan-2 0 Makler Luke. . [facility], [place], [address], [place] tel:[phone] [place] No Information 0 [place] Mary Jane. . [facility], [place], [place], [address], tel:[phone] [place] No Information 0 [place] Mary Jane. . [facility], [place], [place], [address], [place] tel:[phone] [place] No Information 0 Threlfer[place] Joycelyn. . [facility], [place], [place], [address], tel:[phone] [place] No Information May-2 4 Schranck Hesham. [address] [place] [address], [address], [place], [place], [facility], [place]. tel:[phone] [facility] [address], [place], [place], [address], [place] tel:[phone] [place] No Information Dec-2 4-201 4 Hong Bettie. [address] [place] [address], [address], [place], [place], [facility], [place]. tel:[phone] [facility] [address] [place] [address], [id number], tel:[phone] [place] No Information Dec-2 2-201 4 Schranck Hesham. [address] [place] [address], [address], [place], [place], [facility], [place]. tel:[phone] [facility], [place], [place], [address], tel:[phone] [place] No Information May- 9 4 Hong Bettie. [address] [place] [address], [address], [place], [place], [facility], [place]. tel:[phone] [facility] [facility] [address], [place], [place], [address], tel:[phone] [place] No Information 4 Hong Bettie. [address] [place] [address], [facility] [address], [place], [place], [facility], . tel:[phone] [facility] [address] [place] [address] [address], [place], [place], [address], [phone] [place] No Information 4 Hong Bettie. [address] [place] [address], [address], [place], [place], [facility], . tel:[phone] [facility] [address] [place] [address], [place], [place], [address], [phone] [place] Pain in joint involving pelvic region and thigh 4 Hong Bettie. [address] [place] [address], [facility] [address], [place], [place], [facility], . tel:[phone] Family History Family Member Type Diagnosis Age At Onset No Information Payers Payer name Insurance type Covered republican ID Authoriza tion(s) Medicare [place] [id number] [facility] Medicare Supplement CI [id number] Social History Type Description Quantity Date Captured Comments Sex Male Smoking Status No Information Chief Complaint And Reason For Visit No Information Reason For Referral Reason For Referral No Information History Of Present Illness Encounter Date Complaint History Of Prese nt Illness No Information Functional Status Date Functional Assessmen t No Information Instructions Date Instruction Additional Infor douglas Giving encouragement to exercise Related to Overweight Giving encouragement to exercise Related to Overweight Giving encouragement to exercise Related to Overweight Dietary needs education Related to Overweight Assessments Type Assessment Date No Information Patient Care Teams Name Effective Dates (start - stop) Status Members No Information
--- OUTSIDE RECORDS SUMMARY | 2024-08-12 00:54 | XMS_ITS | Encounter Summary ---
Author Organization [facility] Address [facility] [facility] [place] [address] Care Team Providers Care Experimental Preflight Mechanic Name Role Phone Cj Richards MD Primary Care Provider Encounter Details Date Type Department Care Team (Late Contact Info) Description 11/06/2019 Lab Requisition [facility] Care [facility] [address] [place] [id number] Kamryn Garcia MD [address] [place] [address] [address] [place] [address] Social History Tobacco Use Types Packs/Day Years [...] Office Visit [facility] - Neurology [address] [place] [address], [place] [phone] Nehemias Sigala APRN-CNP [address] [place] [address] [address] [place] [phone] documented as of this encounter Procedures Procedure Name Priority Date/Time Associated Diagnosis Comments DERMATOPATH TECHNICAL REPORT Routine 11/05/2019 12:00 AM CDT documented in this encounter Results * DERMATOPATH TECHNICAL REPORT (11/05/2019 12:00 AM CDT) Case Report Dermatopathology Report Case: [id number] Authorizing Provider: Kamryn Garcia MD Collected: 11/05/2019 12:00 AM Ordering Location: [facility] Lab Received: 11/06/2019 06:40 AM Pathologist: Sarah Quiroz MD Specimen: Skin, dorsal nose 0 3:28 PM CDT DERMATOPATHOLOGY LABORATORY Clinical History R/O BCC, irritated, non-healing. 0 3:28 PM CDT DERMATOPATHOLOGY LABORATORY Gross Description Specimen A: Received is one formalin filled container labeled with the patient's name and designated dorsal nose. The specimen consists of a shave measuring [id number]. Jar 0. [facility] Dermatopathology Laboratory performed the technical component only. [...] characteristic determined by the Dermatopathology Laboratory at [facility], directed by Dr. Mike Tavares. These tests need not be, and therefore are not, approved by the [place] Food and Drug Administration. The tests are used for clinical purposes. 0 3:28 PM CDT DERMATOPATHOLOGY LABORATORY Pathology/Cytolog y TISSUE SPECIMEN FROM SKIN / Unknown 11/05/2019 11/06/2019 6:40 AM CDT Kamryn Garcia MD LAB - PATHOLOGY/CYT OLOGY ORDERABLES DERMATOPATHOLOGY LABORATORY [facility] - Department of Dermatology [facility]/[address] [phone] documented in this encounter Visit Diagnoses Not on filedocumented in this encounter Care Teams Experimental Preflight Mechanic Relationship Specialty Start Date End Date Cj Richards MD [address] [place] [id number] PCP - General 04/12/10 documented as of this encounter
--- OUTSIDE RECORDS SUMMARY | 2024-08-12 00:54 | XMS_ITS | Continuity of Care Document ---
Author Organization [facility] Address [address] [facility] [address] [place] [id number] Phone Care Team Providers Care Sales Assistant Name Role Phone Lauren JAMESSherron Unavailable Unavailable [...] Diagnoses Date Provider Providers Copied on Encounter [facility], [address] [facility] [address] [address], [place], [place], [address], tel:[phone] [place] No Information Oct- 4 Lauren OD Sherron. [address] [employer] [facility] [address], [address], [place], [place], [address], [place]. tel:[phone] Office/outpa tient Visit, Est [facility], [address], [place], [place], [address], [place] tel:[phone] [place] Profession[place] l Complete Exam (chief complaint) Squamous blepharitis of upper and lower eyelids of both eyesSquamous blepharitis left eye, upper and lower eyelidsInfes tation by DemodexEpire tinal membrane (ERM) of both eyesPresence of intraocular lensOther hereditary corneal dystrophies, bilateral Oct-0 4 Lauren OD Sherron. [facility] [place] [address], [address], [place], [place], [address], [place]. tel:[phone] Referring Provider: Javi Delgado, [address] [address], [place], [address]. tel:[phone] [facility], [facility] [address] [place] [address], [place], [place], [address], [place] tel:[phone] [place] Complete Exam (chief complaint) Endothelial corneal dystrophy, bilateralPuc kering of macula, bilateralPre sence of intraocular lens 3 Roberto Caldwell. [facility] [employer], [address], [place], [place], [address], [place]. tel:[phone] Referring Provider: Javi Delgado, [address] [address], [place], [address]. tel:[phone] [facility], [address], [place], [place], [address], [place] tel:[phone] SEC Madai Mott Gls ck (chief complaint) Regular astigmatism, bilateral 1 Phong Jones. [address] [facility], [place], [address], [place]. tel:[phone] Referring Provider: Robert Espinoza, [address] [facility], [place], [address]. tel:[phone] Office/outpa tient Visit, [facility], [address] [place], [place] [address]st [facility] [address], [place], [place], [address], [place] tel:[phone] SEC Madai Mott Complete Exam (chief complaint) Presence of intraocular lensOther hereditary corneal dystrophies, bilateralEpi retinal membrane (ERM) of both eyes 1 Roberto Caldwell. [facility] [employer], [address], [place], [place], [address], [place]. tel:[phone] Referring Provider: Javi Delgado, [facility] [address], [place], [address]. tel:[phone] [facility], [address] [place] [address] [address], [place], [place], [address], [place] tel:[phone] SEC Madai Peaceh No Information 1 Roberto Caldwell. [facility] [employer], [address], [place], [place], [address], [place]. tel:[phone] [facility], [address] [place], [place] [address]Ad[address], [place], [place], [address], [place] tel:[phone] [place] Professiona l YAG PC PO (11/20/19) (chief complaint) Post op visit 0 Dimitri OD Trace. [address] [facility], 6th Floor, [place], [address], [place]. tel:[phone] Referring Provider: Javi Delgado, [facility] [address], [place], [address]. [phone] Office/outpa tient Visit, [facility], [address] [place], [place] [address]crest [address], [place], [place], [address], [place] tel:[phone] SEC Madai Mott YAG PC eval (chief complaint) Other secondary cataract, right eyeEndotheli al corneal dystrophyPuc kering of macula, bilateral 0 Roberto Caldwell. [address] [place] [address] [employer] [facility], [address], [place], [place], [address], [place]. tel:[phone] Referring Provider: Javi Delgado, [address] [place] [address] [employer] [facility] [address], [place], [address]. [phone] [facility], [address] [place] [address] [address], [place], [place], [address], [place] tel:[phone] SEC Madai Mott Complete Exam (chief complaint) Hx of LASIKOther secondary cataract, right eyePuckering of macula, bilateral 0 Dimitri OD Trace. [address] [place] [address], [address] [facility], [place], [address], [place]. tel:[phone] Referring Provider: Javi Delgado, [facility] Le[address] [employer] [facility] [address], [place], [address]. tel:[phone] [facility], [facility] [employer] [facility] [address], [place], [place], [address], [place] tel:[phone] [place] Profession[place] Post-Op (chief complaint) Encounter for examination following surgery 0 Dimitri OD Trace. [address] [facility], 6th Floor, [place], [address], [place]. tel:[phone] Referring Provider: Javi Delgado, [facility] [place] [employer] [facility] [address], [place], [address]. tel:[phone] [facility], [facility] [employer] [address], [place], [place], [address], [place] [phone] [place] Profession[place] Yag PC Eval (chief complaint) Presence of intraocular lensOther secondary cataract, right eyeOther secondary cataract, left eyePuckering of macula, bilateralVit reous degeneration , right eye Dec-1 3-201 9 Vitaliy Yee. [address] [facility], [address], [place], [place], [address], [place]. tel:[phone] Referring Provider: Javi Delgado, [address] [place] [address] [employer] [facility] [address], [place], [address]. tel:[phone] Office/outpa tient Visit, [facility], [address] [place] [address] [address], [place], [place], [address], [place] tel: [place] Profession[place] 3 week ERM/CME and YAG Eval (chief complaint) Presence of intraocular lensCystoid macular edema of left eyeHx of LASIKOther secondary cataract, bilateralPuc kering of macula, bilateralVit reous degeneration , right eyePinguecul a, left eyeBenign neoplasm of left choroid Oct-0 9 Vitaliy Yee. [address] [facility], [address], [place], [place], [address], [place]. tel: Referring Provider: Javi Delgado, [address] [place] [address] [employer] [facility] [address], [place], [address]. tel:[phone] Office/outpa tient Visit, [facility], [address] [place] [address] [address], [place], [place], [address], [place] tel:[phone] [place] Profession[place] Glasses check (chief complaint) Puckering of macula, bilateralCys toid macular edema of left eyeLeft posterior capsular opacificatio n Sep- 9 Dimitri Woodward. [address] [facility], 6th Floor, [place], [address], [place]. [phone] Referring Provider: Javi Delgado, [address] [place], [place] [address]crest [employer] [facility] [address], [place], [address]. tel:[phone] [facility], [address] [place] [address] [address], [place], [place], [address], [place] tel: [place] Profession[place] WIE s/p COMPLEX PCIOL w/LensAR (chief complaint) Encounter for examination following surgery 9 Dimitri JAMES Trace. [address] [facility], 6th Floor, [place], [address], [place]. [phone] Referring Provider: Javi Delgado, [facility] [place] [employer] [address], [place], [address]. tel:[phone] [facility], [address] [place] [address] [address], [place], [place], [address], [place] tel:[phone] [place] Profession[place] 3 week s/p PCIOL (chief complaint) Encounter for examination following surgery 9 Vitaliy Yee. [address] [facility], [address], [place], [place], [address], [place]. tel:[phone] Referring Provider: Javi Delgado, [facility] [place] [facility] [address], [place], [address]. tel:[phone] [facility], [address] [place] [address] [address], [place], [place], [address], [place] tel:[phone] [place] Profession[place] 1 week s/p COMPLEX PCIOL (chief complaint) Encounter for examination following surgery 9 Vitaliy Yee. [address] [facility], [address], [place], [place], [address], [place]. tel:[phone] Referring Provider: Javi Delgado, [facility] [place] [employer] [address], [place], [address]. tel:[phone] [facility], [address] [place] [address] [address], [place], [place], [address], [place] tel:[phone] [place] Profession[place] Post-Op (chief complaint) Encounter for examination following surgery 9 Vitaliy Yee. [address] [facility], [address], [place], [place], [address], [place]. tel:[phone] Referring Provider: Javi Delgado, [facility] [address], [place], [address]. tel:[phone] [facility], [address] [employer] [address], [place], [place], [address], [place] tel: [facility] [place] No Information 9 Roberto Caldwell. [address] [address], [address], [place], [place], [address], [place]. tel:[phone] Referring Provider: Javi Delgado, [facility] [address], [place], [address]. tel:[phone] [facility], [address] [employer] [address], [place], [place], [address], [place] tel:[phone] [place] No Information 9 [place] Javi. [facility] [employer], [address], [place], [place], [address], [place]. tel:[phone] Referring Provider: Javi Delgado, [facility] [address], [place], [address]. tel:[phone] [facility], [address] [place], [place] [address]crest [address], [place], [place], [address], [place] tel:[phone] [place] Profession[place] Post-Op (chief complaint) Encounter for examination following surgery 9 Roberto Caldwell. [facility], [address], [place], [place], [address], [place]. tel:[phone] Referring Provider: Javi Delgado, [facility] [address], [place], [address]. tel:[phone] [facility], [facility] [employer] [address], [place], [place], [address], [place] tel:[phone] [place] Profession[place] Post-Op (chief complaint) Encounter for examination following surgery 0 9 Dimitri JAMES Trace. [address] [facility], 6th Floor, [place], [address], [place]. [phone] Referring Provider: Javi Delgado, [address], [place], [address]. tel:[phone] [facility], [address] [address], [place], [place], [address], [place] tel:[phone] [place] Profession[place] Post-Op (chief complaint) Encounter for examination following surgery 9 Vitaliy Yee. [address] [facility], [address], [place], [place], [address], [place]. tel:[phone] Referring Provider: Javi Delgado, [address], [place], [address]. tel:[phone] [facility], [address] [employer] [address], [place], [place], [address], [place] tel:[phone] [facility] [place] No Information 9 Roberto Caldwell. [address], [address], [place], [place], [address], [place]. tel:[phone] Referring Provider: Javi Delgado, [address], [place], [address]. tel:[phone] [facility], [address] [employer] [address], [place], [place], [address], [place] tel:[phone] SEC Madai Mott No Information 9 Roberto Caldwell. [address], [address], [place], [place], [address], [place]. tel:[phone] Referring Provider: Javi Delgado, [address], [place], [address]. [phone] Office/outpa tient Visit, Est [facility], [facility] [employer] [facility] [address], [place], [place], [address], [place] tel:[phone] SEC [place] N [place] Cataract evaluation (chief complaint) Combined forms of age-related cataract, bilateralEnd othelial corneal dystrophyHx of LASIKPuckeri ng of macula, bilateralBen ign neoplasm of left choroid Aug-2 9 Roberto Caldwell. [facility] [employer], [address], [place], [place], [address], [place]. tel:[phone] Referring Provider: Javi Delgado, [facility] [address], [place], [address]. tel:[phone] [facility], [facility] [address], [place], [place], [address], [place] tel:[phone] SEC Madai N Lindmehdi[place] Complete Exam (chief complaint) Combined forms of age-related cataract, bilateralEnd othelial corneal dystrophyPuc kering of macula, bilateralBen ign neoplasm of left choroidHx of LASIK 8 Roberto Caldwell. [facility] [employer], [address], [place], [place], [address], [place]. [phone] Specialist: Ezra dodd MD, [address] [facility] [address], [place], [address]. [phone] ring Provider: Javi Delgado, [facility] [address], [place], [address]. tel:-[phone] [facility], [facility] [employer] [facility] [address], [place], [place], [address], [place] tel:-[phone] SEC Madai Mott No Information May- 8 Roberto Caldwell. [facility] [employer], [address], [place], [place], [address], [place]. tel:[phone] [facility], [facility] [place] [address], [place], [place], [address], [place] tel:[phone] SEC Madai N [place] Complete Eye Exam (chief complaint) Cystoid macular degeneration , bilateralCom bined forms of age-related cataract, bilateralHx of LASIKEndothe lial corneal dystrophy Oct-2 5-201 6 Roberto Caldwell. [facility] [employer], [address], [place], [place], [address], [place]. tel:[phone] Referring Provider: Javi Delgado, [facility] [employer] [address], [place], [address]. tel:[phone] Office/outpa tient Visit, [facility] [employer] [facility], [facility] [place] [address], [place], [place], [address], [place] tel:[phone] SEC [place] N [place] Blurry vision OU (chief complaint) No Information Sep-2 8-201 5 Roberto Caldwell. [facility] [employer], [address], [place], [place], [address], [place]. tel:[phone] Referring Provider: Javi Delgado, [facility] [address], [place], [address]. tel:[phone] [employer] [facility], [facility] [employer] [address], [place], [place], [address], [place] tel:[phone] SEC [place] N [place] blurry vision (chief complaint) No Information Mar-2 4-201 5 Roberto Caldwell. [facility] [employer], [address], [place], [place], [address], [place]. tel:[phone] Referring Provider: Javi Delgado, [facility] [employer] [address], [place], [address]. tel:-[phone] [employer] [facility], [facility] [employer] [address], [place], [place], [address], [place] tel:[phone] [place] Profession[place] a comprehensiv e exam (chief complaint) No Information Oct-0 8-201 3 [place] Javi. [address] [place] [address] [address], [address], [place], [place], [address], [place]. tel:[phone] Referring Provider: Javi Delgado, [address] [place] [address] [employer] [facility] [address], [place], [address]. tel:[phone] [facility], [address] [place] [address] [address], [place], [place], [address], [place] tel: [place] Professiona [place] a comprehensiv e exam (chief complaint) No Information Oct-0 9-201 2 Roberto Javi. [address] [place] [address] [employer] [facility], [address], [place], [place], [address], . tel:[phone] Referring Provider: Javi Delgado, [address] [place] [address] [employer] [facility] [address], [place], [address]. tel:[phone] [facility], [address] [place] [address] [address], [place], [place], [address], [place] tel: SEC Madai N [place] No Information Nov-0 3-200 8 [place] Javi. [address] [place] [address] [employer] [facility], [address], [place], [place], [address], [place]. tel: [facility], [address] [place] [address] [address], [place], [place], [address], [place] tel:[phone] SEC Madai N [place] No Information Apr-2 1-200 8 [place] Javi. [address] [place] [address] [employer], [address], [place], [place], [address], [place]. tel:[phone] [facility], [address] [place] [address] [address], [place], [place], [address], [place] tel: [facility] No Information Steve-2 5-200 7 [employer]. [address] [facility], [address], [place], [address], . tel:[phone] Consulting Provider: Jessi Berry, [address] [place] [address], [facility]. tel:[phone] [facility], [address] [place] [address] [address], [place], [place], [address], tel:[phone] [facility] No Information Steve-2 1-200 7 Kellogg OD Tom. [address], [place] [address], [place], [place], [facility], [place]. tel:[phone] [facility], [address] [place] [address] [address], [place], [place], [address], tel:[phone] [facility] No Information Sep-1 2-200 7 [employer]. [address] [facility], [address], [place], [address], [place]. tel:[phone] Referring Provider: Tom Kellogg OD A, [address], [place], [place], [facility]. tel:[phone] lting Provider: Jessi Berry, [address] [place] [address], [facility]. tel:[phone] [facility], [address] [place] [address] [address], [place], [place], [address], [place] tel:[phone] [facility] No Information Apr-0 5-200 7 Kellogg OD Tom. [address], [address] [facility], [place], [place], [facility], [place]. tel:[phone] Family History Family Member Type Diagnosis Age At Onset No Information Payers Payer name Insurance type Covered constitution party ID Authorkirka tiilana(s) Medicare [facility] [id number] [facility] Medicare Supp CI [id number] Social History Type Description Quantity Date Captured Comments Alcohol Use Details Unknown Caffeine Use Details Unknown Tobacco Use Status No Information Smoking Status No Information Sex Male Chief Complaint And Reason For Visit No Information Reason For Referral Reason For Referral No Information Plan Of Treatment Date Type Action Status Referral Referred To: David Conway [address]
[place] [address] [place], [place], [id number] Ordered: Referrals: Allopathic & Osteopathic Physicians : Ophthalmology. David Conway. Evaluate and treat ordered Referral Referred To: Celestino De Anda [address] [place], [place] [id number] Ordered: Referrals: Ophthalmology. Celestino De Anda. Evaluate [...]
--- OUTSIDE RECORDS SUMMARY | 2024-08-12 00:54 | XMS_ITS | Continuity of Care Document ---
Author Organization [facility] Address [address] [place] [address] Phone Care Team Providers Care Anodize Machine Operator Name Role Phone Prince Eason Unavailable Unavailab [...] Available - Active Procedures Procedure Date Office/outpatient visit,[facility] 2021 Advance Directives Directive Yes / No Effective Date File Name No Information Encounters Encounter Description Practice Location Reason(s) For Visit Diagnoses Date Provider Providers Copied on Encounter Office/outpat ient visit,[facility], [address], [address], [place] tel:[phone] [facility] [employer] Right Hip (chief complaint) Pain in right hipPain in right thighLow back pain, unspecified 2 Shari Morrison. [address] [facility], [address], [place], [place], [address] , [place]. tel:[phone] Referring Provider: Prince Priest, [address] [facility] [address], [place], [address] . tel:[phone] Family History Family Member Type Diagnosis Age At Onset Problem Family history of Cancer, un known Payers Payer name Insurance type Covered alliance party ID Gladys ogden(s) Medicare [place] N[place] Part B [id number] [facility] [id number] Social History Type Description Quantity Date Captured [...] Illness Right Hip Walker is a [facility] 81 year old, 5'7 tall, 170 pound, [...] has some difficulty traveling into the [facility] he will be sent for intra-articular joint injection under fluoroscopy at [facility]. He will notify the office of results of injection, and a more thorough plan of care will be developed after determination of origin of pain. He may use rest, ice, elevation, heat, and any qisl-vmm-ibffrvo pain medications or NSAIDs authorized by either neurology or his primary care physician for pain and inflammation control. He demonstrates appropriate understanding of the diagnosis and plan of care at this time and will follow up with our office after injection. Dictation completed with [employer] Edition software, grammatical variances and spelling errors may inadvertently occur Patient Care Teams Name Effective Dates (start - stop) Status Members No Information
--- OUTSIDE RECORDS SUMMARY | 2024-08-12 00:54 | XMS_ITS | Referral Summary ---
Author Organization [facility] Address [address] [place] [address] Care Team Providers Care Campaign Management Specialist Name Role Phone Andrew Nelson DO Primary Care Provider [phone] Encounters Date Type Department Care Team Description 08/05/2024 Telephone [facility] Cardiology [address] [place] [phone] Robert Yeboah MD 08/05/2024 Results Follow-Up [facility] Cardiology [address] [facility] [address] [place] [phone] Robert Yeboah MD 08/02/2024 11:37 AM AUTOMOTIVE CONSULTANT - 08/02/2024 11:59 PM AUTOMOTIVE CONSULTANT Hospital Encounter [facility] [address] [place] [address] Cardiomyopathy, unspecified type (HCC); Abnormal stress test Discharge Disposition: Discharge to home or self care 07/30/2024 Telephone [facility] [address] [place] [address] Kiesha Caballero RN 07/05/2024 9:15 AM AUTOMOTIVE CONSULTANT Office Visit [facility] Cardiology [address] [place] [address] Robert Yeboah MD Pulmonary hypertension (HCC) (Primary Dx); Non-rheumatic aortic regurgitation; Atrial fibrillation, unspecified type (HCC); Bilateral lower extremity edema; Cardiomyopathy, unspecified type (HCC); Abnormal stress test from Last 3 Months Allergies No known active allergies Medications levothyroxine [...] DAY 30 tablet 6 05/06/20 24 Active furosemide (LASIX) 20 mg tabletIndication s:Bilateral lower extremity edema Take 1 tablet (20 mg total) by mouth daily as needed (swelling) 30 tablet 1 07/05/19 25 Active Active Problems Problem Noted Date Diagnosed Date Bilateral lower extremity edema 07/05/2024 Abnormal stress test 07/05/2024 Cardiomyopathy 07/05/2024 Lumbar stenosis with neurogenic claudication Pulmonary hypertension 01/07/2020 Non-rheumatic aortic regurgitation 11/26/2019 RONDON (dyspnea on exertion) 10/14/2019 Palpitations 10/14/2019 PVC (premature ventricular contraction) 10/14/19 20 Gastroesophageal reflux disease 10/14/2019 Hypothyroidism 10/14/2019 Essential hypertension 10/14/2019 Abnormal EKG 10/14/2019 Postural dizziness with near syncope 10/14/2019 Chest tightness 10/14/2019 Atrial fibrillation 03/09/2015 Overview (09/09/2016): A Fib Social History [...] on file Legal Sex Male 10:20 AM AUTOMOTIVE CONSULTANT Gender Identity Not on file Sexual Orientation Not on file Last Filed Vital Signs Vital Sign Reading Time Taken Comments Blood Pressure 164/84 08/02/2024 12:35 PM AUTOMOTIVE CONSULTANT Pulse 63 08/02/2024 12:35 PM AUTOMOTIVE CONSULTANT Temperature 36.6 C (97.8 F) 09/25/2022 4:13 PM CDT Respiratory Rate 20 09/25/2022 4:13 PM CDT Oxygen Saturation 97% 07/05/2024 9:28 AM AUTOMOTIVE CONSULTANT Inhaled Oxygen Concentration - - Weight 84.4 kg (186 lb) 07/05/2024 9:28 AM AUTOMOTIVE CONSULTANT Height 170.2 cm (5' 7 ) 07/05/2024 9:28 AM AUTOMOTIVE CONSULTANT Body Mass Index 29.13 07/05/2024 9:28 AM AUTOMOTIVE CONSULTANT Plan of Treatment Not on file Procedures Procedure Name Priority Date/Time Associated Diagnosis Comments CT HEART MORPHOLOGY AND CORONARY ARTERIES W CONTRAST Schedule Routine, Read Routine (OP Routine) 08/02/2024 12:45 PM AUTOMOTIVE CONSULTANT Cardiomyopathy, unspecified type (HCC) Abnormal stress test POC ISTAT Routine 08/02/2024 12:19 PM AUTOMOTIVE CONSULTANT from Last 3 Months Results * CTA Heart and Coronary Arteries W Morphology when Performed (08/02/2024 12:45 PM AUTOMOTIVE CONSULTANT) Anatomical Region Laterality Modality Chest N/A Computed Tomogra phy 08/02/2024 3:00 PM AUTOMOTIVE CONSULTANT Impressions 08/02/2024 6:25 PM AUTOMOTIVE CONSULTANT 1. 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 Further evaluation with CT fractional flow reserve should be considered. 2. Calcium score is 420.9. 3. Mild dilation of the ascending aorta, measuring up to 41 mm at the level of the main pulmonary artery. Dictated by: Cj Amato MD The radiology attending physician has personally reviewed this study, and had reviewed and/or edited this written report and agrees with it. Electronically signed by: Dawson Barrientos M.D. Narrative 08/02/2024 6:25 PM AUTOMOTIVE CONSULTANT EXAMINATION: CORONARY CT ANGIOGRAM HISTORY: Abnormal EKG. High CAD risk. TECHNIQUE: CT angiography of the coronary arteries was performed after the administration of 90 mL of Optiray 350. Images were also obtained precontrast for the purposes of calcium scoring. The patient's heart rate at the time of the examination was 61 beats per minute. Images were transferred to a 3D workstation for additional post-processing. FINDINGS: The coronary arteries are right system dominant. There is no anomalous coronary origin or course. No focal caliber change or irregularity to suggest coronary artery dissection. Right coronary system: Minimal calcifications the ostium of the right coronary artery, without any significant luminal stenosis. Left coronary system: No significant calcified or noncalcified atherosclerotic disease in the left main coronary artery. There is calcified and noncalcified plaque in the proximal left anterior descending artery resulting in at least 60% stenosis. There is no significant atherosclerotic disease of the left circumflex artery. The calculated calcium score is 420.9, placing the patient in the 50-75th percentile. Other findings: Imaged portions of the lungs demonstrate atelectasis. The heart size is mildly enlarged. There is no pericardial effusion. The ascending thoracic aorta is mildly dilated, measuring up to 41 x 41 mm at the level of the main pulmonary artery. Degenerative changes of the spine. Procedure Note Dawson Barrientos MD - 08/02/2024 EXAMINATION: CORONARY CT ANGIOGRAM HISTORY: Abnormal EKG. High CAD risk. TECHNIQUE: CT angiography of the coronary arteries was performed after the administration of 90 mL of Optiray 350. Images were also obtained precontrast for the purposes of calcium scoring. The patient's heart rate at the time of the examination was 61 beats per minute. Images were transferred to a 3D workstation for additional post-processing. FINDINGS: The coronary arteries are right system dominant. There is no anomalous coronary origin or course. No focal caliber change or irregularity to suggest coronary artery dissection. Right coronary system: Minimal calcifications the ostium of the right coronary artery, without any significant luminal stenosis. Left coronary system: No significant calcified or noncalcified atherosclerotic disease in the left main coronary artery. There is calcified and noncalcified plaque in the proximal left anterior descending artery resulting in at least 60% stenosis. There is no significant atherosclerotic disease of the left circumflex artery. The calculated calcium score is 420.9, placing the patient in the 50-75th percentile. Other findings: Imaged portions of the lungs demonstrate atelectasis. The heart size is mildly enlarged. There is no pericardial effusion. The ascending thoracic aorta is mildly dilated, measuring up to 41 x 41 mm at the level of the main pulmonary artery. Degenerative changes of the spine. IMPRESSION: 1. 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 Further evaluation with CT fractional flow reserve should be considered. 2. Calcium score is 420.9. 3. Mild dilation of the ascending aorta, measuring up to 41 mm at the level of the main pulmonary artery. Dictated by: Cj Amato MD The radiology attending physician has personally reviewed this study, and had reviewed and/or edited this written report and agrees with it. Electronically signed by: Dawson Barrientos M.D. us Robert Yeboah MD IMG CT PROCEDURES Final R esult * POC ISTAT (08/02/2024 12:19 PM AUTOMOTIVE CONSULTANT) Creatinine, POC, bld 1.2 0.6 - 1.3 mg/dL POC Device Number [id number] [facility] POC Performer [id number] [facility] Blood 08/02/2024 12:1 9 PM AUTOMOTIVE CONSULTANT 08/02/2024 12:19 PM AUTOMOTIVE CONSULTANT Andrew Nelson LAB BLOOD ORDERABLES Final Resul t [facility] [id number] [facility]. Department [place] [address] from Last 3 Months Insurance MEDICARE [facility] MEDICARE [facility] MEDICARE [facility] MEDICARE [facility] Advance Directives For more information, please contact: [phone] * Full Code (Latest Code Status on File) Date Activated Date Inactivated Comments 02/01/2021 3:33 PM 02/02/2021 5:13 PM Care Teams Campaign Management Specialist Relationship Specialty Start Date End Date Andrew Nelson DO PCP - General Family Medicine 05/18/22
--- OUTSIDE RECORDS SUMMARY | 2024-08-12 00:54 | XMS_ITS | Encounter Summary ---
Author Organization [facility] Healthcare Address [address] [place] [address] Care Team Providers Care Hypo Splasher Name Role Phone Cj Richards MD Primary Care Provider [phone] Andrew Nelson DO Primary Care Provider [phone] Encounter Details Date Type Department Care Team (Late st Contact Info) Description 07/17/2020 Telephone [facility] - Imaging [facility] [place] [address] Transcribed Order, Provider Social History Tobacco Use Types Packs/Day Years Used Date Smoking Tobacco: Never Smokeless Tobacco: Never Alcohol Use Standard Drinks/Week Comments No 0 (1 standard drink = 0.6 oz pur e alcohol) Sex and Gender Information Value Date Recorded Sex Assigned at Not on file Legal Sex Male 10:20 AM OPERATIONAL RISK ANALYST Gender Identity Not on file Sexual Orientation Not on file documented as of this encounter Plan of Treatment Not on file documented as of this encounter Visit Diagnoses Not on filedocumented in this encounter Care Teams Hypo Splasher Relationship Specialty Start Date End Date Cj Richards MD [address] [place] [address] PCP - General 03/12/15 05/17/22 Andrew Nelson DO [address] [place] [address] PCP - General Family Medicine 05/18/22 documented as of this encounter
--- OUTSIDE RECORDS SUMMARY | 2024-08-12 00:54 | XMS_ITS | Referral Summary ---
Author Organization [facility] Address [address] [facility] [place] [address] Care Team Providers Care Automotive Assembler Name Role Phone Cj Richards MD Primary Care Provider Source Comments [facility],non-owned Affiliates and Associated Physician Practices is amultiple site organization consisting of ambulatory clinics and hospital sitesin [place], [place], [place] and [place]. This disclosure is being madepursuant to the Care Everywhere program and may not contain all information available regarding this patient. 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
--- OUTSIDE RECORDS SUMMARY | 2024-08-12 00:54 | XMS_ITS | Clinical Summary ---
Author Organization [facility] Address [address] [facility] [place] [address] Care Team Providers Care Crusher And Binder Operator Name Role Phone Cj Richards MD Primary Care Provider Source Comments [facility],non-owned Affiliates and Associated Physician Practices is amultiple site organization consisting of ambulatory clinics and hospital sitesin [place], [place], [place] and [place]. This disclosure is being madepursuant to the Care Everywhere program and may not contain all information available regarding this patient. Last updated 18.[facility] Allergies No known active allergies Medications * [...] Spondylolisthesis of lumbar region 09/20/2023 09/20/2023 WPW (Cchqj-Jlydhwqdj-Hjilr syndrome) 09/20/2023 09/20/2023 Lumbar stenosis with neurogenic [...] Refill [facility] - Neurology [address] [facility] [place] [address] [facility] Noel Plaza MD Refill Request from Last [...] Description 09/25/2024 10:30 AM CDT Office Visit [facility] - Neurology [address] [facility] [place] [phone] Nehemias Sigala, TEN PIN BOWLING CENTRE MANAGER-JEWEL STAKER [address] [place] [phone] Health Maintenance Due Date Last Done Comments MEDICARE AWV 12 MONTHS 1940 DTAP/TDAP/TD VACCINES (1 - [...] age to complete this topic Care Teams Crusher And Binder Operator Relationship Specialty Start Date End Date Cj Richards MD [address] [place] [address] PCP - General 04/12/10
--- OUTSIDE RECORDS SUMMARY | 2024-08-12 00:54 | XMS_ITS | Encounter Summary ---
Author Organization [facility] Healthcare Address [address] [place] [address] Care Team Providers Care Printed Circuit Board Assembler Name Role Phone Cj Richards MD Primary Care Provider [phone] Andrew Nelson DO Primary Care Provider Encounter Details Date Type Department Care Team (Late st Contact Info) Description 07/29/2020 Telephone [facility] - Imaging [facility] [place] [address] Transcribed Order, Provider Social History Tobacco Use Types Packs/Day Years Used Date Smoking Tobacco: Never Smokeless Tobacco: Never Alcohol Use Standard Drinks/Week Comments No 0 (1 standard drink = 0.6 oz pur e alcohol) Sex and Gender Information Value Date Recorded Sex Assigned at Not on file Legal Sex Male 10:20 AM COLD MEAT COOK Gender Identity Not on file Sexual Orientation Not on file documented as of this encounter Plan of Treatment Not on file documented as of this encounter Visit Diagnoses Not on filedocumented in this encounter Care Teams Printed Circuit Board Assembler Relationship Specialty Start Date End Date Cj Richards MD [address] [place] [address] PCP - General 03/12/15 05/17/22 Andrew Nelson DO [address] [place] [address] PCP - General Family Medicine 05/18/22 documented as of this encounter
--- OUTSIDE RECORDS SUMMARY | 2024-08-12 00:54 | XMS_ITS | Clinical Summary ---
Author Organization [facility] Address [facility] [place] [address] Care Team Providers Care Receiving Operator Name Role Phone Andrew Nelson DO Primary Care Provider [phone] Allergies No known active allergies Medications HYDROcodone-dian [...] 90 09/09/2021 10:41 AM CDT Temperature 36.7 C (98 F) 09/09/2021 10:41 AM CDT Respiratory Rate 16 [...] age to complete this topic Insurance MEDICARE [facility] Care Teams Receiving Operator Relationship Specialty Start Date End Date Andrew Nelson DO PCP - General FAMILY PRACTICE 09/09/21
--- OUTSIDE RECORDS SUMMARY | 2024-08-12 00:54 | XMS_ITS | Encounter Summary ---
Author Organization [facility] Healthcare Address [address] [place] [address] Care Team Providers Care Insurance Attorney Name Role Phone Andrew Nelson DO Primary Care Provider [phone] Encounter Details Date Type Department Care Team (Late st Contact Info) Description 08/05/2024 Results Follow-Up [facility] Cardiology [address] [phone] [place] [address] [place] [address] [address] [place], [place] [id number] Social History Tobacco Use Types Packs/Day Years [...] on file Legal Sex Male 10:20 AM CASING CREW Gender Identity Not on file Sexual Orientation Not on file documented as of this encounter Plan of Treatment Not on file documented as of this encounter Visit Diagnoses Not on filedocumented in this encounter Care Teams Insurance Attorney Relationship Specialty Start Date End Date Andrew Nelson DO PCP - General Family Medicine 05/18/22 documented as of this encounter
--- OUTSIDE RECORDS SUMMARY | 2024-08-12 00:54 | XMS_ITS | Clinical Summary ---
Author Organization [facility] Address [address] [address] [place] [address] Phone Care Team Providers Care Modeling Manager Name Role Phone Robert Richards MD Primary Care Provider [phone] Allergies No known active allergies Medications rivaroxaban [...] 02/28/2015 Hyperthyroidism 02/28/2015 Paroxysmal atrial fibrillation WPW (Qraxo-Fmfogfmhp-Dmbgh syndrome) Immunizations Immunization Administration Dates Next Due [...] 51 01/25/2016 2:00 AM CDT Temperature 36.7 C (98.1 F) 01/25/2016 12:21 AM CDT Respiratory Rate 16 01/25/2016 2:00 AM CDT [...] (1 - Tdap) 10[birth year]28/1959 PNEUMOCOCCAL VACCINE 50+ YEARS (1 of 1 - PCV) 10/28/18 90 ZOSTER VACCINE (1 of 2) 10/28/1989 RSV VACCINE (60+ or ) (1 - 1-dose 75+ series) 10/28/2014 INFLUENZA VACCINE (#1) 2024 02/04/2015 Insurance MEDICARE PART A AND B [email or web address] PPO Care Teams Modeling Manager Relationship Specialty Start Date End Date Robert Richards MD PCP - General Internal Medicine 02/28/15
--- OUTSIDE RECORDS SUMMARY | 2024-08-12 00:54 | XMS_ITS | Clinical Summary ---
Author Organization [facility] Address [address] [place] [address] Care Team Providers Care County Administrator Name Role Phone Andrew Nelson Primary Care Provider [phone] Allergies No known active allergies Medications levothyroxine [...] Atrial fibrillation 03/09/2015 Overview (09/09/2016): A Fib Encounters Date Type Department Care Team Description 08/05/2024 Telephone [facility] Cardiology [address] [place] [phone] Robert Yeboah MD 08/05/2024 Results Follow-Up [facility] Cardiology [address] [place] [address] [address] [place] [address] Robert Yeboah MD 08/02/2024 11:37 AM WARDROBE SUPERVISOR - 08/02/2024 11:59 PM WARDROBE SUPERVISOR Hospital Encounter [facility] [address] [place] [address] Cardiomyopathy, unspecified type (HCC); Abnormal stress test Discharge Disposition: Discharge to home or self care 07/30/2024 Telephone [facility] [address] [address] [address] Kiesha Caballero RN 07/05/2024 9:15 AM WARDROBE SUPERVISOR Office Visit [facility] Cardiology [address] [place] [phone] Robert Yeboah MD Pulmonary hypertension (HCC) (Primary Dx); Non-rheumatic aortic regurgitation; Atrial fibrillation, unspecified type (HCC); Bilateral lower extremity edema; Cardiomyopathy, unspecified type (HCC); Abnormal stress test from Last 3 Months Surgical History Surgery Date Site/Laterality Comments HAND SURGERY INGUINAL HERNIA REPAIR Right THUMB SURGERY Left ligament repair KNEE ARTHROSCOPY Medical History Medical History Date Comments Hypertension GERD (gastroesophageal reflux disease) Spinal stenosis of lumbar region BPH (benign prostatic hyperplasia) Hypothyroidism Parkinson disease (HCC) Non-rheumatic aortic regurgitation followed by Dr. Obinna NOBLE's (premature ventricular contractions) Family History Medical History [...] on file Legal Sex Male 10:20 AM WARDROBE SUPERVISOR Gender Identity Not on file Sexual Orientation Not on file Obstetrics History Last Filed Vital Signs Vital Sign Reading Time Taken Comments Blood Pressure 164/84 08/02/2024 12:35 PM WARDROBE SUPERVISOR Pulse 63 08/02/2024 12:35 PM WARDROBE SUPERVISOR Temperature 36.6 C (97.8 F) 09/25/2022 4:13 PM CDT Respiratory Rate 20 09/25/2022 4:13 PM CDT Oxygen Saturation 97% 07/05/2024 9:28 AM WARDROBE SUPERVISOR Inhaled Oxygen Concentration - - Weight 84.4 kg (186 lb) 07/05/2024 9:28 AM WARDROBE SUPERVISOR Height 170.2 cm (5' 7 ) 07/05/2024 9:28 AM WARDROBE SUPERVISOR Body Mass Index 29.13 07/05/2024 9:28 AM WARDROBE SUPERVISOR Plan of Treatment Health Maintenance Due Date Last Done Comments Depression Screening 1940 DTaP/Tdap/Td Vaccine (1 - Tdap) 10/28/1950 Hepatitis B Screening 10/28/1957 Pneumococcal vaccine 65+ (1 of 1 - PCV) 10/28/1989 Well Visit 65+ 10/28/2004 Fall Risk Assessment 02/02/2022 02/02/2021 Covid-19 Vaccine (3 - 2023-2 5 season) 2024 08/11/2020, 07/14/2020 Influenza Vaccine (#1) 2024 , 02/13/2019, 03/19/2018, Additional history exists Zoster Vaccine Completed 04/27/2019, 02/18/2019 Procedures Procedure Name Priority Date/Time Associated Diagnosis Comments CT HEART MORPHOLOGY AND CORONARY ARTERIES W CONTRAST Schedule Routine, Read Routine (OP Routine) 08/02/2024 12:45 PM WARDROBE SUPERVISOR Cardiomyopathy, unspecified type (HCC) Abnormal stress test POC ISTAT Routine 08/02/2024 12:19 PM WARDROBE SUPERVISOR from Last 3 Months Results * CTA Heart and Coronary Arteries W Morphology when Performed (08/02/2024 12:45 PM WARDROBE SUPERVISOR) Anatomical Region Laterality Modality Chest N/A Computed Tomogra phy 08/02/2024 3:00 PM WARDROBE SUPERVISOR Impressions 08/02/2024 6:25 PM WARDROBE SUPERVISOR 1. Mixed calcified and noncalcified atherosclerosis of [...] Dawson Barrientos M.D. Narrative 08/02/2024 6:25 PM WARDROBE SUPERVISOR EXAMINATION: CORONARY CT ANGIOGRAM HISTORY: Abnormal EKG. [...] it. Electronically signed by: Dawson Barrientos M.D. Robert Yeboah MD IMG CT PROCEDURES Final R esult * POC ISTAT (08/02/2024 12:19 PM WARDROBE SUPERVISOR) Creatinine, POC, bld 1.2 0.6 - 1.3 mg/dL POC Device Number [id number] [facility] POC Performer [id number] GUS [facility]JICA Blood 08/02/2024 12:1 9 PM WARDROBE SUPERVISOR 08/02/2024 12:19 PM WARDROBE SUPERVISOR Andrew Nelson DO LAB BLOOD ORDERABLES Final Resul t [facility] [id number] [facility]. Department of [place] [address] from Last [address] [facility] MEDICARE [facility] MEDICARE [facility] MEDICARE [facility] Advance Directives For more information, please contact: [phone] * Full Code (Latest Code Status on File) Date Activated Date Inactivated Comments 02/01/2021 3:33 PM 02/02/2021 5:13 PM Care Teams County Administrator Relationship Specialty Start Date End Date Andrew Nelson DO PCP - General Family Medicine 05/18/22
--- OUTSIDE RECORDS SUMMARY | 2024-08-12 00:54 | XMS_ITS | Encounter Summary ---
Author Organization [facility] Address [facility] [place] [address] Care Team Providers Care Blueprint Assembler Name Role Phone Cj Richards MD Primary Care Provider Encounter Details Date Type Department Care Team (Late Contact Info) Description 10/24/2018 Lab Requisition [facility] DermPath Lab [address] [place] [phone] Kamryn Garcia MD [address] [place] [address] 3 [place] [address] Social History Tobacco Use Types Packs/Day Years [...] Office Visit [facility] - Neurology [address] [place] [phone] Nehemias Sigala APRN-CNP [address] [place] [address] [address] [place] [phone] documented as of this encounter Procedures Procedure Name Priority Date/Time Associated Diagnosis Comments DERMATOPATHOLOGY Routine 10/23/2018 12:0 0 AM CDT documented in this encounter Results * DERMATOPATHOLOGY (10/23/2018 12:00 AM CDT) Case Report Dermatopathology Report Case: [id number] Authorizing Provider: Kamryn Garcia MD Collected: 10/23/2018 12:00 AM Pathologist: Zayda Tavares MD Received: 10/24/2018 07:46 AM Specimens: A) - Skin, right chin B) - Skin, left cheek 10:13 AM T DERMATOPATHOLOGY LABORATORY Final Diagnosis Specimen A. SKIN, right chin: BASAL CELL CARCINOMA (C44.319) PRESENT AT MARGIN (see microscopic description and comment) Specimen B. 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 10:13 AM T DERMATOPATHOLOGY LABORATORY Gross Description Specimen A: Received is one formalin filled container labeled with the patient's name and designated right chin. The specimen consists of a shave measuring 4m4e9dl. Jar 0. Specimen B: Received is one formalin filled container labeled with the patient's name and designated left cheek. The specimen consists of a shave measuring 3m5h3de. Jar 0. 10:13 AM CDT DERMATOPATHOLOGY LABORATORY Microscopic Description Specimen A. SKIN, [...] the margin of the specimen. 10:13 AM T DERMATOPATHOLOGY LABORATORY Disclaimer An external and internal positive and negative controls are appropriate for the histochemical, immunohistochemical and immunofluorescence stain(s) in this case (if any), except where stated explicitly. The performance characteristics of the stain(s) cited in this report were developed and its performance characteristic determined by the Dermatopathology Laboratory at [facility], directed by Dr. Mike Tavares. These tests need not be, and therefore are not, approved by the [place] Food and Drug Administration. The tests are used for clinical purposes. Billing Codes Specimen Charges Stain Charges 94585 [id number] 1 1 9 10:13 AM CDT DERMATOPATHOLOGY LABORATORY Embedded Images 9 10:13 AM CDT DERMATOPATHOLOGY LABORATORY Pathology/Cytology TISSUE SPECIMEN FROM SKIN / Unknown 10/23/2018 10/24/2018 7:46 AM CDT Miscellaneous samples (specimen) TISSUE SPECIMEN FROM SKIN / Unknown 10/23/2018 10/24/2018 7:46 AM CDT Kamryn Garcia MD LAB - PATHOLOGY/CYT OLOGY ORDERABLES DERMATOPATHOLOGY LABORATORY [facility] - Department of Dermatology [address] [place] [address] [address] [phone] documented in this encounter Visit Diagnoses Not on filedocumented in this encounter Care Teams Blueprint Assembler Relationship Specialty Start Date End Date Cj Richards MD [address] [place] [address] PCP - General 04/12/10 documented as of this encounter
--- OUTSIDE RECORDS SUMMARY | 2024-08-12 00:54 | XMS_ITS | Encounter Summary ---
Author Organization [facility] Healthcare Address [address] [place] [address] Care Team Providers Care Box Hinge And Lock Attacher Name Role Phone Cj Richards MD Primary Care Provider [phone] Andrew Nelson DO Primary Care Provider [phone] Encounter Details Date Type Department Care Team (Late st Contact Info) Description 07/29/2020 Telephone [facility] - Interventional Radiology [address] [place] [phone] Amber Benitez, RN Social History Tobacco Use Types Packs/Day Years Used Date Smoking Tobacco: Never Smokeless Tobacco: Never Alcohol Use Standard Drinks/Week Comments No 0 (1 standard drink = 0.6 oz pur e alcohol) Sex and Gender Information Value Date Recorded Sex Assigned at Not on file 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
--- OUTSIDE RECORDS SUMMARY | 2024-08-12 00:54 | XMS_ITS | Encounter Summary ---
Author Organization [facility] Healthcare Address [address] [place] [address] Care Team Providers Care Electronic Coils Supervisor Name Role Phone Andrew Nelson Primary Care Provider [phone] Encounter Details Date Type Department Care Team (Late st Contact Info) Description 07/30/[address] [facility] Imaging [address] [place] [address] Kiesha Caballero RN Social History Tobacco Use Types Packs/Day [...] on file Legal Sex Male 10:20 AM VALET Gender Identity Not on file Sexual Orientation Not on file documented as of this encounter Miscellaneous Notes * Telephone Encounter - Kiesha Caballero RN - 07/30/2024 8:22 AM CST Cardiac CTA patient pre-call instructions: [x] Nothing to eat or drink 2 hours prior to the procedure [x] No caffeine 24 hours prior to procedure [x] Take all essential medications as prescribed (especially the following) Cardiac medication Thyroid medication Seizure medication [x] Beta marci medication If you take medication in AM, please take prior to procedure If you take medication in PM, please take the night before the procedure [x] If you take any of the following medication please hold for 48 hours Tadalafil (Cialis) Sildenafil (Viagra) Avanafil (Stendra) Vardenafil (Staxyn/Lavitra) Or any erectile dysfunctional medication [x] Do you take any medications for Pulmonary Hypertension? (Think vasodilators) If yes, what are the medications? History of IV contrast reaction [] Yes [x] No If Yes have you received a pretreatment regimen from your physician [] Yes [x] No If No please reach out to your ordering physicians for pretreatment medication Nursing: Please briefly explain the procedure to the patient. Spoke with patient: [] Yes [] No Left voicemail with detailed information: [x] Yes [] No If you have any additional questions or concerns please call [phone] (CT control room) LMOM- Detailed info re appt on Monday. Provided return CT number and RN desk number if pt needs to be pre medicated or has meds for pulmonary HTN. I asked to a call back on those. Will attempt to call pt back later today T documented in this encounter Plan of Treatment Not on file documented as of this encounter Visit Diagnoses Not on filedocumented in this encounter Care Teams Electronic Coils Supervisor Relationship Specialty Start Date End Date Andrew Nelson DO PCP - General Family Medicine 05/18/22 documented as of this encounter
[2024-08-12 09:22] LABS: Basophils Percent Auto 0.4 % (0.2-1.2); Eosinophils Absolute Auto 0.2 K/mm3 (0-0.3); Eosinophils Percent Auto 3.5 % (0-4.4); Hemoglobin 12.9 g/dL (14.0-18.0); Immature Granulocyte Absolute 0.01 K/mm3 (0.00-0.031); Immature Granulocyte Percent A 0.2 % (0-0.5); Lymphocytes Absolute Auto 1.33 K/mm3 (0.9-3.2); Lymphocytes Percent Auto 28.8 % (18.3-44.2); Mean Corpuscular HGB Conc 33.1 g/dl (32-36); Mean Corpuscular Hemoglobin 31.6 pg (26-34); Mean Corpuscular Volume 95.6 fl (80-100); Mean Platelet Volume 9.8 fl (7.4-10.4); Monocytes Absolute Auto 0.3 K/mm3 (0.1-0.6); Monocytes Percent Auto 5.4 % (2.6-8.5); Neutrophils Absolute Auto 2.9 K/mm3 (1.3-6.7); Neutrophils Percent Auto 61.7 % (45.5-73.1); Platelet Count Result 147 k/mm3 (150-375); Red Blood Count 4.08 M/mm3 (4.6-6.20); Red Cell Distribution Width 12.9 % (11.5-14.5); White Blood Count 4.6 K/mm3 (4.5-10.0)
[2024-08-12 09:53] LABS: Anion Gap 7 mmol/L (4-12); Blood Urea Nitrogen 29 mg/dL (9-20); Calcium 9.5 mg/dL (8.4-10.2); Carbon Dioxide 27 mmol/L (22-30); Chloride 105 mmol/L (98-107); Estimated CRCL calculation 39 ml/min; Estimated Glomerular Filt Rate 59; Glucose 105 mg/dL (65-110); Potassium 3.9 mmol/L (3.4-5.0); Sodium 139 mmol/L (137-145)
--- NOTE | 2024-08-12 09:53 | WPDHPUPDATE1 ---
History and Physical Update Update Date/Time: 08/12/24 09:50 History and Physical has been reviewed, including an updated exam of the patient. There are NO changes in the patient's condition. Risks, benefits, and alternatives have been discussed and questions answered. Patient agrees to proceed with procedure.
--- NOTE | 2024-08-12 09:53 | WPDMODSED ---
Moderate Sedation Note-Pt Data Patient Data Allergies Allergy/AdvReac Type Severity Reaction Status Date / Time No Known Allergies Allergy Verified 08/12/24 09:04 Home Medications ?Medication ?Instructions ?Recorded ?Confirmed ?Type aspirin 81 mg chewable tablet 81 mg PO DAILY 12/16/19 08/12/24 History carbidopa 25 mg-levodopa 100 mg 1.5 tablet PO TID 08/17/21 08/09/24 History tablet amantadine HCl 100 mg capsule 100 mg PO BID 06/03/22 08/09/24 History tamsulosin 0.4 mg capsule 0.4 mg PO DAILY #90 caps 05/20/24 08/09/24 Rx amlodipine 5 mg tablet 5 mg PO DAILY #90 tabs 06/11/24 08/09/24 Rx levothyroxine 50 mcg tablet 50 mcg PO DAILY #90 tabs 06/11/24 08/09/24 Rx lisinopril 20 mg tablet 20 mg PO DAILY #90 tabs 06/11/24 08/09/24 Rx omeprazole 20 mg capsule,delayed 20 mg PO DAILY #90 caps 06/11/24 08/09/24 Rx release trazodone 50 mg tablet 50 mg PO QHS PRN insomnia #90 tabs 06/11/24 08/09/24 Rx acetaminophen 500 mg capsule 1,000 mg PO Q6H PRN pain 08/09/24 08/09/24 History Current Medications: Active Medications Sodium Chloride (Normal Saline Iv) 500 mls @ 100 mls/hr IV CONT .Q5H RICH Sedation/Anesthesia: No previous sedation/anesthesia problems (including family history). [facility] Past Medical History Medical History (Updated 06/20/24 @ 11:13 by Sparkle Means MA) Encounter to establish care with new doctor On termite renewal inspector drug therapy Parkinson disease Radiculopathy Arthritis Obstructive Sleep Apnea-Hypopnea Syndrome Insomnia Hypothyroidism (acquired) Benign essential hypertension GERD without esophagitis Surgical History Surgical History Status post cholecystectomy Family History Family History Father Malignant neoplasm of prostate Social History Social History Smoking status: Never smoker Alcohol intake: current Drinks per week: 1 Alcohol use details: occasional social drinker. Substance use: never Substance use type: does not use Lack of Transportation: No Lack of Food: Never True Current Housing: I Have Housing Concerned About Future Housing: No Difficulty Paying Gas/Electric Bills: No Difficulty Paying for Meds: No Currently Unemployed: No Education: Bachelor's Degree Difficulty w/ Childcare or Family Care: No Living arrangements: with family Gender identity (if verbalized by the patient): Male Mod Sed Physical Exam Physical Exam Pre Procedural Exam: Normal: Heart Rate and Heart Rhythm Hours since solid foods: 12 Hours since liquid intake: 12 Mallampati Classification: class II Internal Medicine - PN: Obj Da Vital Signs Vital Signs: Vital Signs - 24 hr 08/12/24 09:06 Temperature 36.3 C L Pulse Rate 71 Respiratory Rate 16 Blood Pressure 151/84 H Pulse Oximetry 97 Oxygen Delivery Room Air Meds/Results Medications: Active Medications Generic Name Dose Route Start Last Admin Trade Name Freq PRN Reason Stop Dose Admin Sodium Chloride 500 mls @ 100 mls/hr 08/12/24 08:30 Normal Saline Iv IV CONT .Q5H RICH Labs 08/12/24 09:16 08/12/24 09:16 Labs: Laboratory Results - last 24 hr 08/12/24 09:16 WBC 4.6 RBC 4.08 L Hgb 12.9 L Hct 39.0 L MCV 95.6 MCH 31.6 MCHC 33.1 RDW 12.9 Plt Count 147 L MPV 9.8 Immature Gran % (Auto) 0.2 Neut % (Auto) 61.7 Lymph % (Auto) 28.8 [place] % (Auto) 5.4 Eos % (Auto) 3.5 Baso % (Auto) 0.4 Lymph # (Auto) 1.33 [place] # (Auto) 0.3 Eos # (Auto) 0.2 Baso # (Auto) 0.0 Abs Immat Gran (auto) 0.01 Absolute Neuts (auto) 2.9 Absolute Nucleated RBC 0.000 Nucleated RBC % 0.0 ASA Classification/Sedation ASA Classification/Sedation ASA Class: III Emergent: No Risks: Risks, benefits and alternatives explained and patient/family accepted plan for sedation. Patient re-evaluated immediately prior to sedation.
--- NOTE | 2024-08-12 10:45 | P.PCNCC_ITS ---
Cardiac Cath Procedure Note Date of procedure:: 08/12/24 Performing physician:: CATHETERIZATION LABORATORY REPORT Procedure Date: 08/12/2024 Referring Physician: Dr. Yeboah Anesthesia: Versed and Fentanyl were ordered and given in my presence at 1024, procedure ended at 1039. Supervision of nurse, Sarah Uribe monitored moderate sedation with 2mg Versed was provided for 15 minutes. Pre-op Diagnosis: Abnormal coronary CTA Post-op Diagnosis: Abnormal coronary CTA Procedure(s): Left heart catheterization with coronary angiography Access Site: Right radial artery Brief History and Clinical Indications: 83-year-old man with moderate to severe aortic regurgitation, systolic cardiomyopathy, Parkinson's disease with mobility compromise complain of chest discomfort with subsequent abnormal nuclear stress test as well as abnormal coronary CTA here to better define the coronary stenosis with possible PCI. All risks, benefits and alternatives to left heart catheterization with or without percutaneous coronary intervention was discussed at length with the patient. Risk of complications including but not limited to bleeding, infection, arrhythmia, stroke, worsening kidney function, blood loss, groin hematoma, limb loss, emergency coronary artery bypass grafting, and even were discussed with the patient and all questions were answered. The patient understood and wished to proceed. Time out called, patient name, date of , medical record number, allergies, procedure performed, identify Associate Professor, patient and staff member concurred with accurate data, procedure carried on. Findings: LEFT HEART CATHETERIZATION FINDINGS: 1. Left main: The left main coronary artery is widely patent without any significant obstructive disease. 2. Left anterior descending: The LAD gives off 2 main diagonal branches. The LAD in its proximal body has 10-20% calcific stenosis followed by a mid body 50- 60% 3. Left circumflex: The left circumflex artery is a nondominant vessel that gives off a large OM 1 vessel. This system has mild luminal irregularities. 4. Right coronary artery: The RCA is a large dominant vessel with 10-20% stenosis in its proximal body followed by luminal irregularities in the remainder of the vessel and its branches. 5. Left ventricle: A. End-diastolic pressure 13 mmHg. B. LV gram deferred. C. No significant gradient across aortic valve on catheter pullback. 6. Opening AO pressure 101/58 and closing AO pressure 134/59 Description of Procedure: Informed consent signed and placed in the chart. Patient transferred to open hearth furnace laborer room. Prepped and draped in usual sterile fashion. 2% lidocaine injected subcutaneously in right wrist area. 22-gauge venipuncture catheter used to access the right radial artery with the Seldinger technique. 6-FR slender sheath placed in right radial artery. Nitroglycerin 200mcg, Verapamil 2.5mg, and Heparin 5000U was given intraarterial through the sheath. J wire advanced under fluoroscopy. Once the 5F TIG diagnostic catheter was advanced into the aortic root, aortic opening pressures were obtained showing a pressure reading of 50/30. At this time, the patient was asymptomatic however was a bit drowsy from the sedation. 250 cc normal saline bolus was given as well as 100 mcg of phenylephrine was delivered. Manual blood pressure was rechecked showing reading of 110/60 which was drastically different from the invasive blood pressure monitoring results. The transducer was checked and was not appropriately secured and position. Once transducer was appropriate secured in correct position, the invasive blood pressure monitoring correlated very well the noninvasive blood pressure readings. Patient's blood pressure increased to no greater than 140/60 throughout the procedure. 5F TIG diagnostic catheter engaged Left Main Coronary Artery. 5F JR4 diagnostic catheter engaged Right Coronary Artery Multiple orthogonal angiogram obtained and reviewed 5F Pigtail diagnostic catheter crossed aortic valve to obtain LVEDP, LV angiogram deferred. Hemostasis was achieved by application of TR band. Assessment: Nonobstructive coronary artery disease Post Operative Condition: Stable No significant blood loss Disposition: Home Plan: The patient will be monitored in the recovery area. Continue aggressive medical therapy and risk factor modification. Vicente Rivera Interventional Cardiology
[2024-08-12] MEDS: SODIUM CHLORIDE 0.9% IV 1,000 ML 75 ML IV CONT (11:21)
== END 2024-08-12 14:40 | disposition home or self-care (01) ==
PROVIDERS: PCP Internal Medicine; Visit Provider Internal Medicine
PROC: 4A023N7 Measurement of Cardiac Sampling and Pressure, Left Heart, Percutaneous Approach (ICD-10-PCS; CPT 93452; principal; 2024-08-12 10:00)
DX: I25.10 Atherosclerotic heart disease of native coronary artery without angina pectoris (principal); I35.1 Nonrheumatic aortic (valve) insufficiency; I42.8 Other cardiomyopathies; E03.9 Hypothyroidism, unspecified; I10 Essential (primary) hypertension; K21.9 Gastro-esophageal reflux disease without esophagitis; G20.A1 Parkinson's disease without dyskinesia, without mention of fluctuations; M19.90 Unspecified osteoarthritis, unspecified site; G47.33 Obstructive sleep apnea (adult) (pediatric); G47.00 Insomnia, unspecified; Z79.82 Long term (current) use of aspirin; Z79.899 Other long term (current) drug therapy; Z98.890 Other specified postprocedural states; Z90.49 Acquired absence of other specified parts of digestive tract; Z80.42 Family history of malignant neoplasm of prostate
CPT/HCPCS: 36415; 80048; 85025; 93458; C1769; C1887; C1894; J1644; J2003; J2250; J2305; J2371; J3010; J7030; J7040

== ENCOUNTER 2025-04-01 14:36 | Outpatient (CLI) | payer MEDICARE, SELFPAY ==
--- OUTSIDE RECORDS SUMMARY | 2021-10-13 05:00 | XMS_ITS | Continuity of Care Document ---
Author Organization [facility] Address [address] [place] [address] Phone Care Team Providers Care Cardiovascular Physician Assistant Name Role Phone Prince Eason Unavailable Unavailab le Allergies, Adverse Reactions, Alerts Substance Reaction Status Criticality No Known Allergies Active No Inform ation Medications Medication Instructions Dosage Effective Dates (start - stop) Status Comments LISINOPRIL (unknown strength) Not Available - Active ASPIRIN (unknown strength) Not Available - Active CARBIDOPA-LEVODOPA (unknown strength) Not Available - Active LEVOTHYROXINE SODIUM (unknown strength) Not Available - Active OMEPRAZOLE (unknown strength) Not Available - Active OXYBUTYNIN CHLORIDE ER (unknown strength) Not Available - Active TAMSULOSIN HCL (unknown strength) Not Available - Active Procedures Procedure Date Office/outpatient visit,[facility] 2021 Advance Directives Directive Yes / No Effective Date File Name No Information Encounters Encounter Description Practice Location Reason(s) For Visit Diagnoses Date Provider Providers Copied on Encounter Office/outpat ient visit,[facility], [address], [id number], [place] tel:[phone] [facility] Right Hip (chief complaint) Pain in right hipPain in right thighLow back pain, unspecified 2 Shari Morrison. [address], [address], [place], [place], [id number] , [place]. tel:[phone] Referring Provider: Prince Priest, [address], [place], [address] . tel:[phone] Family History Family Member Type Diagnosis Age At Onset Problem Family history of Cancer, un known Payers Payer name Insurance type Covered republican ID Gladys ogden(s) [place] Part [place] [id number] [facility] [id number] Social History Type Description Quantity Date Captured Comments Alcohol Use Details Unknown Caffeine Use Details Unknown Tobacco Use Status Current non-smoker Smoking Status Never smoker Non-Smoking Tobacco Use Details : No Details Available : No Details Available Sex Male Vital Signs Date / Time: Height Weight BMI Pulse Rate Blood Pressure Temperature Respiratory Rate Body Surface Area Head Circumference Head Circ. Percentile Wt./Damon. Percentile BMI percentile Pulse Ox Inhaled Ox 1:18 PM 67.00 in 77.111 kg (170.00 lbs) 26.6 3 kg/m sunita (2) Chief Complaint And Reason For Visit From encounter dated '10/13/2021 10:00'. Right Hip (chief complaint). Description: Walker is a pleasant 81 year old, 5'7 tall, 170 pound, left hand dominant male who presents to the office today, at the request of his neurosurgeon, for evaluation of his right hip pain. Pain is been present for years, with increasing hip pain over the last 2 months. Patient has a past medical history significant for spinal stenosis, and surgical decompression from the level of L1-L5. He is experiencing right iliac crest, groin, and anterior thigh pain. His neurosurgeon wishes to determine if pain is predominantly related to his back or to his hip. Patient has participated in pain management injections in his low back with reductionof some pain. He is experiencing both paresis and paresthesia in the right lower extremity. His pain is worsened in the morning and with laying down. He is experiencing night pain, difficulty fallingasleep, tingling in his lower legs. His pain is rated at a 10 out of 10 with a constant stabbing nature. Pain is managed with the use of ice, spinal injections, ibuprofen, and heat. Denies injury, trauma, or fall within the last year. Denies fever, chills, generalized feelings of illness or malaise. He is ambulating without assistive device at today's office visit, and accompanied to the visit by his . Reason For Referral Reason For Referral No Information Plan Of Treatment Date Type Action Status Referral Ordered: Fluoroscopic Guidance; Non Spinal RT hip ordered History Of Present Illness Encounter Date Complaint History Of Prese nt Illness Right Hip Walker is a [facility] 81 year old, 5'7 tall, 170 pound, left hand dominant male who presents to the office today, at the request of his neurosurgeon, for evaluation of his right hip pain. Pain is been present for years, with increasing hip pain over the last 2 months. Patient has a past medical history significant for spinal stenosis, and surgical decompression from the level of L1-L5. He is experiencing right iliac crest, groin, and anterior thigh pain. His neurosurgeon wishes to determine if pain is predominantly related to his back or to his hip. Patient has participated in pain management injections in his low back with reduction of some pain. He is experiencing both paresis and paresthesia in the right lower extremity. His pain is worsened in the morning and with laying down. He is experiencing night pain, difficulty falling asleep, tingling in his lower legs. His pain is rated at a 10 out of 10 with a constant stabbing nature. Pain is managed with the use of ice, spinal injections, ibuprofen, and heat. Denies injury, trauma, or fall within the last year. Denies fever, chills, generalized feelings of illness or malaise. He is ambulating without assistive device at today's office visit, and accompanied to the visit by his . Functional Status Date Functional Assessmen t No Information Instructions Date Instruction Additional Infor mation No Information Assessments Type Assessment Date assessment Pain in right hip assessment Pain in right thigh assessment Low back pain, unspecified impression Independent review o f imaging studies taken at outside facility demonstrate mild narrowing of the joint space, worsened in the inferior acetabular fossa, with mild sclerotic changes noted diffusely along the acetabular ring. No fracturing, subluxation, or dislocation noted.Radiologic review and physical exam demonstrate low back pain, anterior right thigh pain, right groin pain, and right iliac crest pain. As the point of origin for pain is uncertain after testing, and could either be related to low back pathology or hip pathology patient will be sent for intra-articular joint injection under fluoroscopy used both diagnostically and therapeutically. Patient advised of 3 possible outcomes with reduction of all pain indicating hip pathology, reduction of some pain indicating both hip and back pathology, and reduction of no pain indicating origin of pain completely back pathology. Risks and benefits of cortisone injections were discussed with the patient. As the patient has some difficulty traveling into the [facility] he will be sent for intra-articular joint injection under fluoroscopy at [facility]. He will notify the office of results of injection, and a more thorough plan of care will be developed after determination of origin of pain. He may use rest, ice, elevation, heat, and any [id number] pain medications or NSAIDs authorized by either neurology or his primary care physician for pain and inflammation control. He demonstrates appropriate understanding of the diagnosis and plan of care at this time and will follow up with our office after injection. Dictation completed with Open[employer] Foundation Edition software, grammatical variances and spelling errors may inadvertently occur Patient Care Teams Name Effective Dates (start - stop) Status Members No Information
--- OUTSIDE RECORDS SUMMARY | 2024-03-15 10:15 | XMS_ITS | Continuity of Care Document ---
Author Organization [facility] Address [address] [facility] [address] [place] [phone] Phone Care Team Providers Care Desktop Support Engineer Name Role Phone Lauren JAMESSherron Unavailable Unavailable Allergies, Adverse Reactions, Alerts Substance Reaction Status Criticality No Known Allergies Active No Inform ation Medications Medication Instructions Dosage Effective Dates (start - stop) Status Comments amantadine HCl 100 mg capsule take 1 capsule by oral route 2 times every day 100 MG - Active carbidopa 25 mg-levodopa 100 mg tablet take 2 Tablet by ORAL route 4 times every day 2 Tablet - Active amlodipine 5 mg tablet take 1 tablet by oral route every day 5 MG - Active aspirin 81 mg tablet,delayed release take 1 tablet by oral route every day 81 MG - Active omeprazole 20 mg tablet,delayed release take 1 by oral route every day 1 - Active lisinopril 10 mg tablet take 1 tablet by oral route every day 10 MG - Active levothyroxine 50 mcg tablet take 1 tablet by oral route every day 50 MCG - Active tamsulosin 0.4 mg capsule take 1 capsule by oral route every day 1/2 hour following the same meal each day 0.4 MG - Active Xdemvy 0.25 % eye drops instill 1 drop by ophthalmic route every 12 hours for 6 weeks into both eyes 1.00 drop - No Longer Active Procedures Procedure Date No Charge Refraction Corneal Pachymetry No Charge Optomap Fundus Photos 024 SCODI, Retina Office/outpatient Visit, Est Corneal Pachymetry SCODI, Retina Refraction No Charge Optomap Fundus Photos 023 Eye Exam & Treatment No Charge Refraction Refraction Corneal Pachymetry Fundus Photography W/ Report Office/outpatient Visit, Est Post-op Follow-up Visit Corneal Pachymetry No Charge Refraction Fundus Photography W/ Report Office/outpatient Visit, Est After Cataract Laser Surgery No Charge Refraction Eye Exam & Treatment Post-op Follow-up Visit SCODI, Retina No Charge Refraction After Cataract Laser Surgery Eye Exam & Treatment No Charge Refraction SCODI, Retina Office/outpatient Visit, Est No Charge Refraction SCODI, Retina Office/outpatient Visit, Est No Charge Refraction Post-op Follow-up Visit Refraction Post-op Follow-up Visit Post-op Follow-up Visit Complex Extracapsular Cat Rem, PO Care J Complex Extracapsular Cat Rem, Comanaged Laser Cataract SX Standard IOLMaster-Professional No Charge Refraction Post-op Follow-up Visit Post-op Follow-up Visit Remove Cataract, Post Op Care 9 Remove Cataract, Insert Lens,Comanaged M Laser Cataract SX Standard IOLMaster-Professional No Charge Refraction Corneal Pachymetry Fundus Photography W/ Report Office/outpatient Visit, Est Corneal Topography Fundus Photography W/ Report Corneal Pachymetry Eye Exam & Treatment No Charge Refraction IOLMaster-Technical No Charge Refraction Fundus Photography W/ Report No Charge GDX Retina Eye Exam & Treatment Oct- Office/outpatient Visit, Est No Charge GDX Retina Corneal Pachymetry Fundus Photography W/ Report Corneal Topography Eye Exam & Treatment IOLMaster-Technical Fundus Photography W/ Report No Charge Orbscan No Charge Refraction Eye Exam & Treatment Fundus Photography W/ Report Refraction Oct Eye Exam & Treatment Oct Dilated Macular Exam Performed 12 Counseling For Antioxidant Supplements O Certified EMR Fundus Photography W/ Report Eye Exam Established Pt Eye Exam & Treatment Dilated Macular Exam Performed 08 Progressive Lens, Plastic No Charge Glasses Check Progressive Lens, Plastic Vision Svcs Frames Purchases Tint Photochromatic, Plastic Tax - Medical Eye Exam & Treatment Refraction Advance Directives Directive Yes / No Effective Date File Name No Information Encounters Encounter Description Practice Location Reason(s) For Visit Diagnoses Date Provider Providers Copied on Encounter [facility], [address] [facility] [address], [place], [place], [address], tel:[phone] SEC [place] No Information Oct- 4 Lauren OD Sherron. [address] [address] [facility] [address], [address], [place], [place], [address], [place]. tel:[phone] Office/outpa tient Visit, Est [facility], [address], [place], [place], [address], [place] tel:[phone] SEC [place] Professiona l Complete Exam (chief complaint) Squamous blepharitis of upper and lower eyelids of both eyesSquamous blepharitis left eye, upper and lower eyelidsInfes tation by DemodexEpire tinal membrane (ERM) of both eyesPresence of intraocular lensOther hereditary corneal dystrophies, bilateral Oct-0 4 Lauren OD Sherron. [facility] [address], [address], [place], [place], [address], [place]. tel:[phone] Referring Provider: Javi Delgado, [address], [place], [address]. tel:[phone] [facility], [facility] [address], [place], [place], [address], [place] tel:[phone] SEC [place] Complete Exam (chief complaint) Endothelial corneal dystrophy, bilateralPuc kering of macula, bilateralPre sence of intraocular lens 3 Roberto Caldwell. [facility] [address], [address], [place], [place], [address], [place]. tel:[phone] Referring Provider: Javi Delgado, [address], [place], [address]. tel:[phone] [facility], [address], [place], [place], [address], [place] tel:[phone] SEC Madai Mott Gls ck (chief complaint) Regular astigmatism, bilateral 1 Phong Jones. [address] [facility], [place], [address], [place]. tel:[phone] Referring Provider: Robert Espinoza, [address] [facility], [place], [address]. tel:[phone] Office/outpa tient Visit, [facility], [address] [place], [place] [address] [address], [place], [place], [address], [place] [phone] SEC Madai Mott Complete Exam (chief complaint) Presence of intraocular lensOther hereditary corneal dystrophies, bilateralEpi retinal membrane (ERM) of both eyes 1 Roberto Caldwell. [facility] [address], [address], [place], [place], [address], [place]. [phone] Referring Provider: Javi Delgado, [facility] [address], [place], [address]. tel:[phone] [facility], [address] [place] [address] [address], [place], [place], [address], [place] [phone] SEC Madai Peaceh No Information 1 Roberto Caldwell. [facility] [address], [address], [place], [place], [address], [place]. tel:[phone] [facility], [address] [place] [address] [address], [place], [place], [address], [place] [phone] SEC [place] Profession[place] YAG PC PO (11/20/19) (chief complaint) Post op visit 0 Dimitri Woodward. [address] [facility], 6th Floor, [place], [address], [place]. tel:[phone] Referring Provider: Javi Delgado, [facility] [address], [place], [address]. tel:[phone] Office/outpa tient Visit, [facility], [address] [place] [address] [address], [place], [place], [address], [place] tel:[phone] SEC Madai Mtot YAG PC eval (chief complaint) Other secondary cataract, right eyeEndotheli al corneal dystrophyPuc kering of macula, bilateral 0 Roberto Caldwell. [address] [place] [address] [facility], [address], [place], [place], [address], [place]. tel:[phone] Referring Provider: Javi Delgado, [address] [place] [address] [facility] [address], [place], [address]. tel:[phone] [facility], [address] [place] [address] [address], [place], [place], [address], [place] tel:[phone] SEC Madai Mott Complete Exam (chief complaint) Hx of LASIKOther secondary cataract, right eyePuckering of macula, bilateral 0 Dimitri OD Trace. [address] [place] [address], [address] [facility], [place], [address], [place]. tel:[phone] Referring Provider: Javi Delgado, [address] [place] [address] [facility] [address], [place], [address]. tel:[phone] [facility]elly [facility], [address] [place] [address] [address], [place], [place], [address], [place] tel:[phone] [place] Professiona [place] Post-Op (chief complaint) Encounter for examination following surgery 0 Dimitri OD Trace. [address] [place] [address], [address] [facility], [place], [address], [place]. tel:[phone] Referring Provider: Javi Delgado, [address] [place] [address] [facility] [address], [place], [address]. tel:[phone] [facility], [facility] [place] [address], [place], [place], [address], [place] tel:[phone] [place] Professiona l Yag PC Eval (chief complaint) Presence of intraocular lensOther secondary cataract, right eyeOther secondary cataract, left eyePuckering of macula, bilateralVit reous degeneration , right eye Dec-06 07-201 9 Vitaliy Yee. [address] [facility], [address], [place], [place], [address], [place]. tel:[phone] Referring Provider: Javi Delgado, [address] [place] [address] [facility] [address], [place], [address]. [phone] Office/outpa tient Visit, [facility], [address] [place] [address] [address], [place], [place], [address], [place] tel:[phone] SEC [place] Professiona [place] 3 week ERM/CME and YAG Eval (chief complaint) Presence of intraocular lensCystoid macular edema of left eyeHx of LASIKOther secondary cataract, bilateralPuc kering of macula, bilateralVit reous degeneration , right eyePinguecul a, left eyeBenign neoplasm of left choroid Oct-0 9 Vitaliy Yee. [address] [facility], [address], [place], [place], [address], [place]. [phone] Referring Provider: Javi Delgado, [address] [place] [address] [facility] [address], [place], [address]. [phone] Office/outpa tient Visit, [facility], [address] [place] [address] 150, [place], [place], [address], [place] tel:[phone] [place] Professiona [place] Glasses check (chief complaint) Puckering of macula, bilateralCys toid macular edema of left eyeLeft posterior capsular opacificatio n Sep-1 9 Dimitri Woodward. [address] [facility], 6th Floor, [place], [address], [place]. tel:[phone] Referring Provider: Javi Delgado, [address] [place] [address] [facility] [address], [place], [address]. [phone] [facility], [address] [place] [address] [address], [place], [place], [address], [place] tel:[phone] [place] Profession[place] WIE s/p COMPLEX PCIOL w/LensAR (chief complaint) Encounter for examination following surgery 9 Dimitri Woodward. [address] [facility], 6th Floor, [place], [address], [place]. tel:[phone] Referring Provider: Jaiv Delgado, [facility] [place] [address], [place], [address]. tel:[phone] [facility] HospitalF[facility] Eye [facility] HospitalVinveli [facility], [address] [place] [address] [address], [place], [place], [address], [place] tel:[phone] SEC [place] Professiona [place] 3 week s/p PCIOL (chief complaint) Encounter for examination following surgery 9 Vitaliy Yee. [address] [facility], [address], [place], [place], [address], [place]. tel:[phone] Referring Provider: Javi Delgado, [facility] [address], [place], [address]. tel:[phone] [facility], [address] [place] [address] [address], [place], [place], [address], [place] tel:[phone] [place] Professiona [place] 1 week s/p COMPLEX PCIOL (chief complaint) Encounter for examination following surgery 9 Vitaliy Yee. [address] [facility], [address], [place], [place], [address], [place]. tel:[phone] Referring Provider: Javi Delgado, [facility] [place] [address], [place], [address]. tel:[phone] [facility]gaJefferson Regional Medical CenterCost Effective Data [facility] HospitalVinveli [facility], [facility] [place] [address], [place], [place], [address], [place] tel:[phone] [place] Profession[place] Post-Op (chief complaint) Encounter for examination following surgery 9 Vitaliy Yee. [address] [facility], [address], [place], [place], [address], [place]. tel:[phone] Referring Provider: Javi Delgado, [address], [place], [address]. [phone] [facility], [address] [place], [place] [address] [address], [place], [place], [address], [place] tel:[phone] [facility] No Information 9 Roberto Javi. [address] [place] [facility], [address], [place], [place], [address], [place]. tel:[phone] Referring Provider: Javi Delgado, [facility] [place] [address], [place], [address]. [phone] [facility], [address] [place] [address] [address], [place], [place], [address], [place] tel:[phone] SEC [place] No Information 9 Roberto Javi. [address] [place] [facility], [address], [place], [place], [address], [place]. [phone] Referring Provider: Javi Delgado, [facility] [place] [address], [place], [address]. [phone] [facility], [address] [place], [place] [address] [address], [place], [place], [address], [place] tel:[phone] SEC [place] Professiona [place] Post-Op (chief complaint) Encounter for examination following surgery 9 Roberto Javi. [address], [address], [place], [place], [address], [place]. [phone] Referring Provider: Javi Delgado, [facility] [place] [address], [place], [address]. [phone] [facility], [address] [place], [place] [address] [address], [place], [place], [address], [place] tel:[phone] SEC [place] Professiona [place] Post-Op (chief complaint) Encounter for examination following surgery 0 9 Dimitri Woodward. [address] [facility], 6th Floor, [place], [address], [place]. tel:[phone] Referring Provider: Javi Delgado, [address], [place], [address]. tel:[phone] [facility], [address] [place] [address], [place], [place], [address], [place] tel:[phone] SEC [place] Professiona [place] Post-Op (chief complaint) Encounter for examination following surgery 9 Vitaliy Yee. [address] [facility], [address], [place], [place], [address], [place]. tel:[phone] Referring Provider: Javi Delgado, [address], [place], [address]. tel:[phone] [facility] HospitalF[facility] Eye [facility], [address], [place], [place], [address], [place] tel:[phone] [facility] [place] No Information 9 Roberto Caldwell. [address], [address], [place], [place], [address], [place]. tel:[phone] Referring Provider: Javi Delgado, [address], [place], [address]. tel:[phone] [facility]elly [facility] AlabamaVinveli [facility], [address] [address], [place], [place], [address], [place] tel:[phone] SEC Madai Mott No Information 9 Roberto Caldwell. [address], [address], [place], [place], [address], [place]. tel:[phone] Referring Provider: Javi Delgado, [address], [place], [address]. tel:[phone] Office/outpa tient Visit, Est [facility], [address], [place], [place], [address], [place] tel:[phone] SEC Carrie Whitley Mott Cataract evaluation (chief complaint) Combined forms of age-related cataract, bilateralEnd othelial corneal dystrophyHx of LASIKPuckeri ng of macula, bilateralBen ign neoplasm of left choroid Aug- 9 Roberto Caldwell. [address], [address], [place], [place], [address], [place]. tel:[phone] Referring Provider: Javi Delgado, [facility] [address], [place], [address]. tel:[phone] [facility], [address], [place], [place], [address], [place] tel:[phone] SEC Madai Mott Complete Exam (chief complaint) Combined forms of age-related cataract, bilateralEnd othelial corneal dystrophyPuc kering of macula, bilateralBen ign neoplasm of left choroidHx of LASIK 8 Roberto Caldwell. [facility] [address], [address], [place], [place], [address], [place]. tel:[phone] Specialist: Ezra Salmon MD, [address] [facility] [address], [place], [address]. tel:[phone] ng Provider: Javi Delgado, [facility] [address], [place], [address]. tel:[phone] [facility]elly [facility], [address] [address], [place], [place], [address], [place] tel:[phone] SEC Madai Mott No Information 8 Roberto Caldwell. [facility] [address], [address], [place], [place], [address], [place]. tel:[phone] [facility], [address], [place], [place], [address], [place] tel:[phone] SEC Madai N Lindbergh Complete Eye Exam (chief complaint) Cystoid macular degeneration , bilateralCom bined forms of age-related cataract, bilateralHx of LASIKEndothe lial corneal dystrophy Oct-2 6 Roberto Javi. [facility] [address], [address], [place], [place], [address], [place]. tel:[phone] Referring Provider: Javi Delgado, [facility] [address], [place], [address]. tel:[phone] Office/outpa tient Visit, [facility], [address], [place], [place], [address], [place] tel:[phone] SEC Carrie N Lindbergh Blurry vision OU (chief complaint) No Information Sep-2 5 Roberto Caldwell. [facility] [address], [address], [place], [place], [address], [place]. tel:[phone] Referring Provider: Javi Delgado, [facility] [address], [place], [address]. [phone] [facility], [address], [place], [place], [address], [place] tel:[phone] SEC Madai N Lindbergh blurry vision (chief complaint) No Information Mar-2 5 Roberto Caldwell. [facility] [address], [address], [place], [place], [address], [place]. tel:[phone] Referring Provider: Javi Delgado, [facility] [address], [place], [address]. tel:[phone] [facility], [address], [place], [place], [address], [place] tel:[phone] [place] Professiona [place] No Information Oct-0 8-201 3 Roberto Caldwell. [address], [address], [place], [place], [address], [place]. tel:[phone] Referring Provider: Javi Columbus A, [address] [place] [address], [place], [address]. tel:[phone] [facility], [address] [place] [address] [address], [place], [place], [address], [place] tel:[phone] SEC [place] Singha l No Information Oct-0 9-201 2 Roberto Caldwell. [address] [place] [address] [facility], [address], [place], [place], [address], [place]. tel:[phone] Referring Provider: Javi Columbus A, [address] [place] [address], [place], [address]. tel:[phone] [facility], [address] [place] [address] [address], [place], [place], [address], [place] tel:[phone] SEC Carrie Whitley Rangelmehdih No Information Nov-0 3-200 8 Roberto Caldwell. [facility] [place] [facility], [address], [place], [place], [address], [place]. tel:[phone] [facility] Center[facility], [address] [place] [address] [address], [place], [place], [address], [place] tel:[phone] SEC Carrie Whitley Rangelbergh No Information Apr-2 1-200 8 Columbusumer Caldwell. [facility] [address], [address], [place], [place], [address], [place]. tel:[phone] [facility] Hospital[facility], [address] [place] [address], [place], [place], [address], [place] tel:[phone] SEC [facility] No Information Steve-2 5-200 7 [employer] [facility]. [address] [facility], [address], [place], [place], [address], [place]. tel:[phone] Consulting Provider: Jessi Berry, [address] [place], [address]. tel:[phone] [facility], [address] [facility] [address], [place], [place], [address], tel:[phone] [facility] No Information Steve-2 1-200 7 Kellogg OD Tom. [address] , [address], [place], [place], [facility], [place]. tel:[phone] [facility], [address] [place] [address] [address], [place], [place], [address], [place] tel:[phone] [facility] No Information Sep-1 2-200 7 [employer]. [address] [facility], [address], [place], [place], [address], . tel:[phone] Referring Provider: Tom Kellogg OD A, [address] [facility] [address], [place], [place], [facility]. tel:[phone] ing Provider: Jessi Berry, [address] [place] [address], [facility]. tel:[phone] [facility], [address] [place], [place] [address], [place], [place], [address], [place] tel:[phone] [facility] No Information Sep-0 5-200 7 Kellogg OD Tom. [address] , [address], [place], [facility], [place]. tel:[phone] Family History Family Member Type Diagnosis Age At Onset No Information Payers Payer name Insurance type Covered democrat ID Gladys ogden(s) [place] [id number] AARP Medicare Supp [place] [id number] Social History Type Description Quantity Date Captured Comments Alcohol Use Details Unknown Caffeine Use Details Unknown Tobacco Use Status No Information Smoking Status No Information Sex Male Chief Complaint And Reason For Visit No Information Reason For Referral Reason For Referral No Information Plan Of Treatment Date Type Action Status Referral Referred To: David Conway [address] [place], [place], [id number] Ordered: Referrals: Allopathic & Osteopathic Physicians : Ophthalmology. David Conway. Evaluate and treat ordered Referral Referred To: Celestino De Anda [address] [place], [place] [phone] Ordered: Referrals: Ophthalmology. Celestino De Anda. Evaluate and treat ordered Patient Education Learning About Your Eye s completed Patient Education Learning About YAG Lase r Capsulotomy completed Patient Education Learning About YAG Lase r Capsulotomy completed Patient Education Learning About YAG Lase r Capsulotomy completed Patient Education Cataract Surgery: What to Expect at H~ completed Patient Education Cataract Surgery: What to Expect at H~ completed Patient Education Cataracts: Care Instruc tions completed History Of Present Illness Encounter Date Complaint History Of Prese nt Illness Complete Exam The 83 year old patient presents for evaluation of Complete Exam in the right eye and left eye. Patient states vision is doing okay, seems to have more trouble reading. Current glasses are fairly new. Denies pain/discomfort. Pt states he is more sensitive to sunlight than he used to be. Complete Exam The 81 year old patient presents for evaluation of Complete Exam in the right eye and left eye. Pt. states his vision seems to be stable in both eyes at distance. Pt. would like to update his glasses today. Pt. states no using any eyedrops at present. Gls ck The 80 year old male presents for evaluation of Gls ck in the right eye and left eye. Pt states when looking individually vision in each eye is clear, but there is some distortion with both eyes open and he is getting a little glare at night. Pt states he takes his gls off when watching TV from about 10-15 ft. Pt also states that when reading, the middle of the line is clear, but either end of the sentence is blurry. Pt got gls about 3 mos ago. Complete Exam The 79 year old male presents for evaluation of Complete Exam in the right eye and left eye. Hx of PCIOL OU, YAG PC OU, ERM OU, LASIK OS, chor nevus OS, Fuch's OU, and h/o CME. Pt states vision is clear and stable OU distance and near x 6 months, with no complaints today. Pt would like an Rx for new glasses today, he would like to switch to a progressive lens. Pt does not use any drops at this time. YAG PC PO (11/20/19) The 79 year old male presents for evaluation of YAG PC PO (11/20/19) in the right eye. Pt reports he can see a lot better since YAG PC, OD. Pt reports he got a few small floaters after the YAG PC, OD, but denies any flashes of light, OD. YAG PC eval The 79 year old male presents for evaluation of YAG PC eval in the right eye. Pt has Hx of PCIOL OU, YAG PC OS, PCO OD, ERM OU, LASIK OS, chor nevus OS, Fuch's OU, and h/o CME. Pt has difficulty intermittently with glare on ignacio days and doesn't like to drive at night due to glare OD. He also has difficulty seeing road signs, playing cards, fine print and seeing TV with OD. He couldn't recognize a friend from across the street because of his OD. He states his OS is fantastic. Pt declines YAG video. Complete Exam The 78 year old male presents for evaluation of Complete Exam in the right eye and left eye. Hx Lasik OS, Macular Pucker OU, CME OS, PCIOL OU, PCO OD and YAG OS. Pt states vision OS is stable and vision OD has decreased x 3 months. Pt denies pain and discomfort OU. Post-Op The 78 year old male presents for a 3 week post op yag pc OS. Patient states OS vision is better. . Patient states it seems like a little of the glare came back. Yag PC Eval The 78 year old male presents for evaluation of Yag PC Eval in the right eye and left eye. Hx Lasik OS, Macular Pucker OU, CME OS, PCIOL OU, PCO OU. Pt reports vision has improved OS since last visit. Pt reports finishing rounds of eyedrop with a pink top OS and Ketorolac QID OS. Pt reports glare from oncoming headlights at night. Pt reports having trouble reading small print at near like newspapers, books and medicine bottles. 3 week ERM/CME and YAG Eval The 78 year old male presents for evaluation of 3 week ERM/CME and YAG Eval in the left eye. Hx of LASIK OS, PCIOL OD, COMPLEX PCIOL w/LensAR OS, and ERM OS. Patient states VA in the left eye is blurry up close and at a distance. Patient has difficulty seeing road signs and reading small print with the left eye. Glasses check The 78 year old male presents for evaluation of Glasses check in the right eye and left eye. Patient states he got his new glasses and the VA in the left eye only is not as good as the right when reading only. WIE s/p COMPLEX PCIOL w/LensAR T he 78 year old male presents for evaluation of WIE s/p COMPLEX PCIOL w/LensAR in the left eye (11/15/18). Patient states the left eye is very irritated pt lased p/o gtts 3 days ago and the eye became very irritated used the gtts again and the OS feels 100% better. 3 week s/p PCIOL The 78 year old male presents for evaluation of 3 week s/p COMPLEX PCIOL w/LensAR in the left eye (11/15/18). Patient states VA is good. Patient using p/o gtt as directed. 1 week s/p COMPLEX PCIOL The 78 year old male presents for evaluation of 1 week IOP check s/p COMPLEX PCIOL in the left eye ( 11/15/18). Patient states VA is good. Patient is using Ket and Tob/dex as directed. Post-Op The 78 year old male presents for a 1 day post op CE OS. Patient is using Tobramycin/dex qid OS and Poly qid OS. Patient denies any pain or discomfort this am. Patient is still using Tobramycin/Dex bid and Poly OD. Post-Op The 78 year old male presents fora 2 week post op CE OD. Patient is using Ketoralac tid OD and Tobramycin bid OD. Patient states OD is doing good. Patient wishes to proceed with CE OD because of glare driving at night. Patient states harder to see street signs and read small print. Patient c/o harder to see TV and states gradual decrease x 2 years. Post-Op The 78 year old male presents for a 1 week IOP check s/p CE OD 10/25. Patient is using Tobramycin/Dex qid OD and Ketorolac tid OD. Patient states OD is doing good. Post-Op The 77 year old male presents for a 1 day post op CE OD. Patient to begin Ketorolac tid OD and Tobramycin/Dexamethasone qid OD. Patient denies any pain or discomfort. Cataract evaluation The 77 year old male presents for evaluation of Cataract evaluation in the right eye and left eye. 90 day rule. Hx Cataracts OU, AMD OU, Hx CME OU, Nevus IS, LASIK OS, Fuchs OU, ERM OU. Pt states it's difficult to drive at night due to headlight glare, having to get closer to street signs to see them clearly, difficult to see TV, and it's difficult to see small print. DVA and NVA gradual decrease OU x 2 yrs. Complete Exam The 77 year old male presents for evaluation of Complete Exam in the right eye and left eye. Hx Cataracts OU, AMD OU, Hx CME OU, Nevus IS, LASIK OS, Fuchs OU, ERM OU. Pt states OU seem to be worse over the last 2 years. States he has trouble seeing at distance and near and has trouble seeing road signs driving. Pt states he has a lot of glare with bright lights. The patient was referred to Dr. Salmon last visit Complete Eye Exam The 75 year ol d male presents for Complete Eye Exam. Patient Hx Cataract OU, Macular Degeneration OU, CME OU, Choroidal Nevus OS and LASIK OS. Patient reports the overall vision has significantly declined over the past year in both eyes. Patient is having trouble driving at night due to decreased vision and sensitivity to glare. Patient has noticed fine print is hard to see at times. Patient does not use any eye drops.*Patient's AFIB and Thyroid has been treated since his last appointment and everything is within normal limits. Blurry vision OU The 74 year old male presents for a Cataract check with Pachs, Pentecam, BAT, and BCVA OU. Patient Hx Cataracts OU, Mac degen, Choroidal nevus OS, and LASIK OS. Patient c/o difficulty with glares for distance and at near OU. Patient denies any pain or discomfort at this time OU. Patient not taking any gtts OU. Pt has been in the ER 5 times in the last month for Afib. They did check his thyroid and they were abnormal findings. blurry vision The 73 year old male presents for a complete exam. Pt denies any pain or discomfort at this time. Pt c/o v/a slowly decreasing over time in the distance, near, and c glare at night and on bright days. Pt states he can see well out of his glasses. Pt does not use any gtts at this time.hx cataract OU, mac degen, choroidal nevus OS, Lasik OS Functional Status Date Functional Assessmen t No Information Instructions Date Instruction Additional Infor douglas Impression/Plan Impression/Plan Impression/Plan Impression/Plan Impression/Plan Impression/Plan Impression/Plan 6-9mo comp or sooner prn Related to Encounter for examination following surgery Impression/Plan Related to Encou nter for examination following surgery Impression/Plan Impression/Plan Impression/Plan as sched or sooner prn Related t o Encounter for examination following surgery Impression/Plan Related to Encou nter for examination following surgery Impression/Plan Impression/Plan Impression/Plan Impression/Plan 1wk or sooner prn Related to Enc ounter for examination following surgery Impression/Plan Related to Encou nter for examination following surgery Impression/Plan Impression/Plan Impression/Plan Cystoid macular dege neration, bilateral - Rec referral to retinal specialist 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 Pt was instructed to return to the office sooner if vision worsens. Pt needs BAT and BCVA on return prior to dilation. CME discussed and would rec he be evaluated by [facility] to determine if injections can be done to treat. We did discussed the risks of increased CME following cataract surgery. Pt state he now has his Thyroid and A-Fib controlled. Impression/Plan - Pt is currently being treated and evaluated for Afib and thyroid abnormality, Will start Ilevro qday ou for CME. Sample given and will Erx to his pharmacy repeat OCT of mac on return. Discussed cataract progression with pt and CE for treatment. This is not recommended until his AFib and thyroid conditions have been treated. Pt to return in 6 mos cat eval. Pt needs BAT/BCVA on return prior to dilation Follow up - 6 months cat eval with mac oct - 6 months cat/cornea check Rela kaylene to See list of assessments above - Cataracts account for the patient's complaints. Discussed all risks, benefits and procedures. Explained in detail that recovery time may be lengthy due to Fuchs' dystrophy and there is a risk of permanent corneal edema. 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 Discussed treatment options with patient. No treatment is required at this time. Will continue to observe condition and or symptoms. Call if VA worsens. Educational materials provided:about today's exam.Discussed spec change with pt, and if desired he can proceed with CE, Spec change also discussed and rec at this time Related to See impression: general plan - 1 yr complete exam Related to Cataract, Nuclear Sclerosis Choroidal Nevus, OS - vision not affected - will continue to monitor - Discussed diagnosis with patient. No treatment is required at present time. Will continue to monitor condition. Related to Choroidal Nevus Cataract, Nuclear Sc lerosis, OU - established, worsening - vision affected - may improve with surgery.h/o LASIK OS - Early cataract(s) accounts for patient's complaints. No treatment currently recommended due to VA level, Patient will monitor vision changes and contact us with any decrease in vision, will re-evaluate cataract on return visit. Related to Cataract, Nuclear Sclerosis Macular Degeneration , OU - established, stable - vision not affected - will continue to monitor - Discussed diagnosis with patient. Taking vitamins has shown to improve vision related to macular degeneration. Will continue to monitor condition. Related to Macular Degeneration Assessments Type Assessment Date No Information Patient Care Teams Name Effective Dates (start - stop) Status Members No Information
--- OUTSIDE RECORDS SUMMARY | 2025-04-01 17:02 | XMS_ITS | Clinical Summary ---
Author Organization [facility] Address [address] [place] [address] Care Team Providers Care Medical Terminologist Name Role Phone Cj Richards MD Primary Care Provider [phone] Source Comments [facility],non-owned Affiliates and Associated Physician Practices is amultiple site organization consisting of ambulatory clinics and hospital sitesin [place], [place], [place] and [place]. This disclosure is being madepursuant to the Care Everywhere program and may not contain all information available regarding this patient. Last updated 18.[facility] Allergies No known active allergies Medications * Be aware that medications may not be up to date on this document. Alwaysverify current medications with the patient. omeprazole (PRILOSEC) 20 MG capsule Take 1 (one) capsule by mouth once daily 0 Active tamsulosin (FLOMAX) 0.4 MG capsule TAKE 1 CAPSULE BY MOUTH EVERY DAY 1/2 HOUR FOLLOWING SAME MEAL EACH DAY 0 Active lisinopril (PRINIVIL; ZESTRIL) 10 MG tablet Take 1 (one) tablet by mouth once daily 0 Active levothyroxine (SYNTHROID) 50 MCG tablet Take 1 (one) tablet by mouth once daily 0 Active ticagrelor (Brilinta) 60 MG tablet Take 1 (one) tablet by mouth 2 times daily Swallow whole. Do not crush, chew, or open capsule. Active amLODIPine (Norvasc) 5 MG tablet Take 1 (one) tablet by mouth once daily Active oxyBUTYnin CR 24hr (Ditropan-XL) 10 MG tablet Take 1 (one) tablet by mouth once daily Active traZODone (Desyrel) 50 MG tablet 50 MG ORALLY EVERY DAY AT BEDTIME NEEDED FOR INSOMNIA 3 Active aspirin (Aspirin) 81 MG chew tablet Ac tive gabapentin (Neurontin) 300 MG capsule Take 1 (one) capsule by mouth 2 Active naproxen (Naprosyn) 500 MG tablet Take 1 (one) tablet by mouth 2 times daily 2 Active carbidopa-levodopa (Sinemet) 25-100 MG tabletIndications: Parkinson's Disease Take 2 (two) tablets by mouth 4 times daily Reasons: Parkinson's Disease 750 tablet 3 5 Active amantadine (Symmetrel) 100 MG capsuleIndications :Parkinson's disease without dyskinesia, with fluctuating manifestations (HCC) Take 1 (one) capsule by mouth 2 times daily 180 capsule 3 5 Active Active Problems Problem Noted Date Diagnosed Date Degeneration of intervertebral disc of lumbar re gion 09/20/2023 09/20/2023 Parkinson's disease 09/20/2023 09/20/2023 Pars defect of lumbar spine 09/20/202309/03 Spondylolisthesis of lumbar region 09/20/2023 09/20/2023 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 Gender Identity Not on file Sexual Orientation Not on file Last Filed Vital Signs Vital Sign Reading Time Taken Comments Blood Pressure 106/65 09/25/2024 10:38 AM CDT Pulse 93 09/25/2024 10:38 AM CDT Temperature 36.8 C (98.3 F) 03/21/2023 12:43 PM CDT Respiratory Rate 16 03/21/2023 12:43 PM CDT Oxygen Saturation 98% 09/25/2024 10:38 AM CDT Inhaled Oxygen Concentration - - Weight 81.6 kg (180 lb) 09/25/2024 10:38 AM CDT Height 172.7 cm (5' 8) 09/20/2023 10:12 AM CDT Body Mass Index 27.37 09/20/2023 10:12 AM CDT Plan of Treatment Upcoming Encounters Date Type Department Care Team (Late st Contact Info) Description 09/25/2025 1:00 PM CDT Office Visit [facility] - Neurology [address] [place] [phone] Jovon Ramopasha, GEOPHYSICS SCIENTIST-CANDLE MAKER [address] [place] [phone] Health Maintenance Due Date Last Done Comments MEDICARE AWV 12 MONTHS 1940 DTAP/TDAP/TD VACCINES (1 - Tdap) 10/28/1958 PNEUMOCOCCAL VACCINE 50+ (1 of 1 - PCV) 10/28/1989 Respiratory Syncytial Virus (RSV) Vaccine Pt: or over 60 yrs (1 - 1-dose 75+ series) 10/28/2014 DEPRESSION SCREENING 06/05/2024 09/08/2022 COVID-19 VACCINE (1 - 2023-2 5 season) 2025 INFLUENZA VACCINE (#1) 2025 0, 02/04/2015 ZOSTER VACCINE Completed 04/27/2019, 02/18/2019 HEPATITIS B VACCINE Aged Out No longe r eligible based on patient's age to complete this topic HIB VACCINE Aged Out No longer eligi ble based on patient's age to complete this topic HPV VACCINE Aged Out No longer eligi ble based on patient's age to complete this topic MENINGOCOCCAL (Group B) VACCINE SHARED DECISION-MAKING Aged Out No longer eligible based on patient's age to complete this topic MENINGOCOCCAL GROUPS A/C/Y/W VACCINE Aged Out No longer eligible b ased on patient's age to complete this topic Insurance MEDICARE [facility] MEDICARE Care Teams Medical Terminologist Relationship Specialty Start Date End Date Cj Richards MD [address] [place] [address] PCP - General 04/12/10
--- OUTSIDE RECORDS SUMMARY | 2025-04-01 17:02 | XMS_ITS | Clinical Summary ---
Author Organization [facility] Address [address] [address] [place] [address] Phone Care Team Providers Care Social Studies Teacher Name Role Phone Robert Richards MD Primary Care Provider [phone] Allergies No known active allergies Medications rivaroxaban [...] 02/28/2015 Hyperthyroidism 02/28/2015 Paroxysmal atrial fibrillation WPW (Hrrmv-Yrskzbgwh-Xiqir syndrome) Immunizations Immunization Administration Dates Next Due [...] 12:21 AM CDT Height 172.7 cm (5' 8) 01/25/2016 12:21 AM CDT Body Mass Index 27.37 01/25/2016 12:21 AM CDT Plan of Treatment Health Maintenance Due Date Last Done Comments DTAP/TDAP/TD VACCINES (1 - Tdap) 10/28/1958 PNEUMOCOCCAL VACCINE 50+ YEARS (1 of 1 - PCV) 10/28/18 90 ZOSTER VACCINE (1 of 2) 10/28/1989 RSV VACCINE (60+ or ) (1 - 1-dose 75+ series) 10/28/2014 INFLUENZA VACCINE (#1) 2025 02/04/2015 Insurance MEDICARE PART A AND B [employer] PPO Care Teams Social Studies Teacher Relationship Specialty Start Date End Date Robert Richards MD PCP - General Internal Medicine 02/28/15
--- OUTSIDE RECORDS SUMMARY | 2025-04-01 17:04 | XMS_ITS | Encounter Summary ---
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 Gender Identity Not on file Sexual Orientation Not on file documented as of this encounter Plan of Treatment Not on file documented as of this encounter Procedures Procedure Name Priority Date/Time Associated Diagnosis Comments CARDIOLOGY DOCUMENT SCAN 08/12/2024 documented in this encounter Results * Cardiology Document Scan (08/12/2024) Anatomical Region Laterality Modality Other us Provider Scanning CV CARDIAC SERVICES PROCEDURES Final Result documented in this encounter Visit Diagnoses Not on filedocumented in this encounter Care Teams Pharmacy Delivery Driver Relationship Specialty Start Date End Date Andrew Nelson DO PCP - General Family Medicine 05/18/22 01/09/25 Ananda Wooten MD PCP - General Internal Medicine 01/10/25 documented as of this encounter
--- OUTSIDE RECORDS SUMMARY | 2025-04-01 17:04 | XMS_ITS | Encounter Summary ---
Author Organization [facility] Healthcare Address [address] [place] [address] Care Team Providers Care Geophysical Prospecting Surveyor Name Role Phone Cj Richards MD Primary Care Provider [phone] Andrew Nelson DO Primary Care Provider [phone] Ananda Wooten MD Primary Care Provider [phone] Encounter Details Date Type Department Care Team (Late st Contact Info) Description 07/29/2020 Telephone [facility] - Interventional Radiology [address] [place] [address] Amber Benitez RN Social History Tobacco Use Types Packs/Day Years Used Date Smoking Tobacco: Never Smokeless Tobacco: Never Alcohol Use Standard Drinks/Week Comments No 0 (1 standard drink = 0.6 oz pur e alcohol) Sex and Gender Information Value Date Recorded Sex Assigned at Not on file 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
--- OUTSIDE RECORDS SUMMARY | 2025-04-01 17:04 | XMS_ITS | Clinical Summary ---
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 Take 1 tablet (10 mg total) by mouth daily 30 tablet 11 01/11/20 25 026 Active Active Problems Problem Noted Date Diagnosed Date 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 01/10/2025 Bilateral lower extremity edema 07/05/2024 Abnormal stress [...] Encounters Date Type Department Care Team Description 01/10/2025 10:00 AM CDT Office Visit [facility] Cardiology [address] [facility] [address] [place] [address] Robert Yeboah MD 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 (Primary Dx); Non-rheumatic aortic regurgitation; Pulmonary hypertension (HCC); Cardiomyopathy, unspecified type (HCC); Hypothyroidism, unspecified type from Last 3 Months Surgical History Surgery [...] on file 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 Gender Identity Not on file Sexual Orientation Not on file Obstetrics History Last Filed Vital Signs Vital Sign Reading Time Taken Comments Blood Pressure 130/70 01/10/2025 10:06 AM CDT Pulse 74 01/10/2025 10:06 AM CDT Temperature 36.6 C (97.8 F) 09/25/2022 4:13 PM CDT Respiratory Rate 20 09/25/2022 4:13 PM CDT Oxygen Saturation 98% 01/10/2025 10:06 AM CDT Inhaled Oxygen Concentration - - Weight 80.3 kg (177 lb) 01/10/2025 10:06 AM CDT Height 170.2 cm (5' 7) 01/10/2025 10:06 AM CDT Body Mass Index 27.72 01/10/2025 10:06 AM CDT Plan of Treatment Health Maintenance Due Date Last Done Comments Depression Screening 1940 DTaP/Tdap/Td Vaccine (1 - Tdap) 10/28/1950 Hepatitis B Screening 10/28/1957 Pneumococcal vaccine 65+ (1 of 1 - PCV) 10/28/1989 Well Visit 65+ 10/28/2004 Fall Risk Assessment 02/02/2022 02/02/2021 Covid-19 Vaccine (3 - 2024-2 6 season) 2025 08/11/2020, 07/14/2020 Influenza Vaccine (#1) 2025 0, 02/13/2019, 03/19/2018, Additional history exists Zoster Vaccine Completed 04/27/2019, 02/18/2019 Insurance MEDICARE [facility] MEDICARE [facility] MEDICARE [facility] MEDICARE [facility] Advance Directives For more information, please contact: [phone] * Full Code (Latest Code Status on File) Date Activated Date Inactivated Comments 02/01/2021 3:33 PM 02/02/2021 5:13 PM Care Teams Boat Canvas Maker Installer Relationship Specialty Start Date End Date Ananda Wooten MD PCP - General Internal Medicine 01/10/25
--- OUTSIDE RECORDS SUMMARY | 2025-04-01 17:04 | XMS_ITS | Encounter Summary ---
Author Organization [facility] Address [address] [place] [address] [place] [address] Care Team Providers Care Cash Register Repairer Name Role Phone Cj Richards MD Primary Care Provider Encounter Details Date Type Department Care Team (Late Contact Info) Description 10/24/2018 Lab Requisition [facility] DermPath Lab [address] [facility] [place] [id number] Kamryn Garcia MD [address] [place] [address] [address] [place] [address] Social History Tobacco Use Types Packs/Day Years Used Date Smoking Tobacco: Never Smokeless Tobacco: Never Alcohol Use Standard Drinks/Week Comments Not Asked 0 (1 standard drink = 0.6 oz pur e alcohol) Sex and Gender Information Value Date Recorded Sex Assigned at Not on file 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 Gender Identity Not on file Sexual Orientation Not on file documented as of this encounter Plan of Treatment Upcoming Encounters Date Type Department Care Team (Late Contact Info) Description 09/25/2025 1:00 PM CDT Office Visit [facility] - Neurology [address] [facility] [place] [address] Nehemias Sigala APRN-ART [address] [place] [address] [address] [place] [address] documented as of this encounter Procedures Procedure Name Priority Date/Time Associated Diagnosis Comments DERMATOPATHOLOGY Routine 10/23/2018 12:0 0 AM CDT documented in this encounter Results * DERMATOPATHOLOGY (10/23/2018 12:00 AM CDT) Case Report Dermatopathology Report Case: [id number] Authorizing Provider: Kamryn Garcia MD Collected: 10/23/2018 12:00 AM Pathologist: Zayda Tavares MD Received: 10/24/2018 07:46 AM Specimens: A) - Skin, right chin B) - Skin, left cheek 10:13 AM CDT DERMATOPATHOLOGY LABORATORY Final Diagnosis Specimen A. SKIN, right chin: BASAL CELL CARCINOMA (C44.319) PRESENT AT MARGIN (see microscopic description and comment) Specimen B. 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 10:13 AM CDT DERMATOPATHOLOGY LABORATORY Gross Description Specimen A: Received is one formalin filled container labeled with the patient's name and designated right chin. The specimen consists of a shave measuring [id number]. Jar 0. Specimen B: Received is one formalin filled container labeled with the patient's name and designated left cheek. The specimen consists of a shave measuring [id number]. Jar 0. 10:13 AM CDT DERMATOPATHOLOGY LABORATORY [...] the margin of the specimen. 10:13 AM CDT DERMATOPATHOLOGY LABORATORY Disclaimer An external and internal positive and negative controls are appropriate for the histochemical, immunohistochemical and immunofluorescence stain(s) in this case (if any), except where stated explicitly. The performance characteristics of the stain(s) cited in this report were developed and its performance characteristic determined by the Dermatopathology Laboratory at [facility], directed by Dr. Mike Tavares. These tests need not be, and therefore are not, approved by the [place] Food and Drug Administration. The tests are used for clinical purposes. Billing Codes Specimen Charges Stain Charges 54073 38886 1 1 9 10:13 AM CDT DERMATOPATHOLOGY LABORATORY Embedded Images 9 10:13 AM CDT DERMATOPATHOLOGY LABORATORY Pathology/Cytology TISSUE SPECIMEN FROM SKIN / Unknown 10/23/2018 10/24/2018 7:46 AM CDT Miscellaneous samples (specimen) TISSUE SPECIMEN FROM SKIN / Unknown 10/23/2018 10/24/2018 7:46 AM CDT Kamryn Garcia MD LAB - PATHOLOGY/CYTOLOGY OR DERABLES Final Result DERMATOPATHOLOGY LABORATORY [facility] - Department of Dermatology [address] [place] [address] 5th Floor Lab [address] [phone] documented in this encounter Visit Diagnoses Not on filedocumented in this encounter Care Teams Cash Register Repairer Relationship Specialty Start Date End Date Cj Richards MD [address] [place] [address] PCP - General 04/12/10 documented as of this encounter
--- OUTSIDE RECORDS SUMMARY | 2025-04-01 17:04 | XMS_ITS | Encounter Summary ---
Author Organization [facility] Healthcare Address [address] [place] [address] Care Team Providers Care Manager Room Name Role Phone Cj Richards MD Primary Care Provider [phone] Andrew Nelson DO Primary Care Provider [phone] Ananda Wooten MD Primary Care Provider [phone] Encounter Details Date Type Department Care Team (Late st Contact Info) Description 07/17/2020 Telephone [facility] - Interventional Radiology [address] [place] [address] Amber Benitez RN Social History Tobacco Use Types Packs/Day Years Used Date Smoking Tobacco: Never Smokeless Tobacco: Never Alcohol Use Standard Drinks/Week Comments No 0 (1 standard drink = 0.6 oz pur e alcohol) Sex and Gender Information Value Date Recorded Sex Assigned at Not on file 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
--- OUTSIDE RECORDS SUMMARY | 2025-04-01 17:04 | XMS_ITS | Encounter Summary ---
Author Organization [facility] Healthcare Address [address] [place] [address] Care Team Providers Care Traffic Maintenance Supervisor Name Role Phone Cj Richards MD Primary Care Provider [phone] Andrew Nelson DO Primary Care Provider [phone] Ananda Wooten MD Primary Care Provider [phone] Encounter Details Date Type Department Care Team (Late st Contact Info) Description 07/17/2020 Telephone [facility] - Imaging [address] [place] [address] Transcribed Order, Provider Social History Tobacco Use Types Packs/Day Years Used Date Smoking Tobacco: Never Smokeless Tobacco: Never Alcohol Use Standard Drinks/Week Comments No 0 (1 standard drink = 0.6 oz pur e alcohol) Sex and Gender Information Value Date Recorded Sex Assigned at Not on file 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
--- OUTSIDE RECORDS SUMMARY | 2025-04-01 17:04 | XMS_ITS | Encounter Summary ---
Author Organization [facility] Address [address] [place] [address] [place] [address] Care Team Providers Care Physician Credentialing Specialist Name Role Phone Cj Richards MD Primary Care Provider [phone] Encounter Details Date Type Department Care Team (Late Contact Info) Description 11/06/2019 Lab Requisition [facility] Care DermPath Lab [address] [facility] [address] [place] [address] Kamryn Garcia MD [address] [place] [address] [address] [place] [address] Social History Tobacco Use Types Packs/Day Years Used Date Smoking Tobacco: Never Smokeless Tobacco: Never Alcohol Use Standard Drinks/Week Comments Not Asked 0 (1 standard drink = 0.6 oz pur e alcohol) Sex and Gender Information Value Date Recorded Sex Assigned at Not on file 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 Gender Identity Not on file Sexual Orientation Not on file documented as of this encounter Plan of Treatment Upcoming Encounters Date Type Department Care Team (Late Contact Info) Description 09/25/2025 1:00 PM CDT Office Visit [facility] - Neurology [address] [facility] [place] [address] Nehemias Sigala APRN-ART [address] [place] [address] [address] [place] [address] documented as of this encounter Procedures Procedure Name Priority Date/Time Associated Diagnosis Comments DERMATOPATH TECHNICAL REPORT Routine 11/05/2019 12:00 AM CDT documented in this encounter Results * DERMATOPATH TECHNICAL REPORT (11/05/2019 12:00 AM CDT) Case Report Dermatopathology Report Case: [id number] Authorizing Provider: Kamryn Garcia MD Collected: 11/05/2019 12:00 AM Ordering Location: [facility] DermPath Lab Received: 11/06/2019 06:40 AM Pathologist: Sarah Quiroz MD Specimen: Skin, dorsal nose 0 3:28 PM CDT DERMATOPATHOLOGY LABORATORY Clinical History R/O BCC, irritated, non-healing. 0 3:28 PM CDT DERMATOPATHOLOGY LABORATORY Gross Description Specimen A: Received is one formalin filled container labeled with the patient's name and designated dorsal nose. The specimen consists of a shave measuring [id number]. Jar 0. [facility] Dermatopathology Laboratory performed the technical component [...] determined by the Dermatopathology Laboratory at [facility], directed by Dr. Mike Tavares. These tests need not be, and therefore are not, approved by the [place] Food and Drug Administration. The tests are used for clinical purposes. 0 3:28 PM CDT DERMATOPATHOLOGY LABORATORY at 1528 CDT Pathology/Cytolog y TISSUE SPECIMEN FROM SKIN / Unknown 11/05/2019 11/06/2019 6:40 AM CDT Kamryn Garcia MD LAB - PATHOLOGY/CYTOLOGY OR DERABLES Final Result DERMATOPATHOLOGY LABORATORY [facility] - Department of Dermatology Pharmaceutical Physician [place]/[address] [phone] documented in this encounter Visit Diagnoses Not on filedocumented in this encounter Care Teams Physician Credentialing Specialist Relationship Specialty Start Date End Date Cj Richards MD [address] [place] [address] PCP - General 04/12/10 documented as of this encounter
--- OUTSIDE RECORDS SUMMARY | 2025-04-01 17:04 | XMS_ITS | Clinical Summary ---
Author Organization [facility] Address Replaced by [facility] [place] [address] Care Team Providers Care Sports Media Name Role Phone Andrew Nelson DO Primary Care Provider [phone] Allergies No known active allergies Medications HYDROcodone-dian [...] 10:41 AM CDT Height 170.2 cm (5' 7) 09/09/2021 10:41 AM CDT Body Mass Index 27.41 09/09/2021 10:41 AM CDT Plan of Treatment Health Maintenance Due Date Last Done Comments DTaP, Tdap and Td Vaccines ( 1 - Tdap) 10/28/1959 Pneumococcal Vaccine: 50+ Years (1 of 1 - PCV) 10/28/1989 Annual Medicare Wellness Visit 10/28/2004 RSV Immunization or 60+ Years (1 - 1-dose 75+ series) 10/28/2014 COVID-19 Vaccine (4 - 2024-2 6 season) 2025 03/22/2021, 08/11/2020, 07/14/2020 Influenza Adult (#1) 2025 02/13/2019, 05/18/2017, 02/04/2015 Zoster Vaccines Completed 04/27/2019, 02/18/2019 Hepatitis A Vaccines Aged Out No long er eligible based on patient's age to complete this topic Meningococcal B Vaccine Aged Out No l onger eligible based on patient's age to complete this topic Meningococcal Vaccine Aged Out No denise oly eligible based on patient's age to complete this topic RSV Immunizations Under 20 Months Aged Out No longer eligible b ased on patient's age to complete this topic Insurance MEDICARE [facility] Care Teams Sports Media Relationship Specialty Start Date End Date Andrew Nelson DO PCP - General FAMILY PRACTICE 09/09/21
--- OUTSIDE RECORDS SUMMARY | 2025-04-01 17:04 | XMS_ITS | Encounter Summary ---
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 Gender Identity Not on file Sexual Orientation Not on file documented as of this encounter Plan of Treatment Not on file documented as of this encounter Procedures Procedure Name Priority Date/Time Associated Diagnosis Comments SCAN - LABS 06/19/2024 documented in this encounter Results * SCAN - LABS (06/19/2024) us Provider Scanning Final Result documented in this encounter Visit Diagnoses Not on filedocumented in this encounter Care Teams Assignment Agent Relationship Specialty Start Date End Date Andrew Nelson DO PCP - General Family Medicine 05/18/22 01/09/25 Ananda Wooten MD PCP - General Internal Medicine 01/10/25 documented as of this encounter
--- OUTSIDE RECORDS SUMMARY | 2025-04-01 17:04 | XMS_ITS | Encounter Summary ---
Author Organization [facility] Healthcare Address [address] [place] [address] Care Team Providers Care Yard Coupler Name Role Phone Cj Richards MD Primary Care Provider [phone] Andrew Nelson DO Primary Care Provider [phone] Ananda Wooten MD Primary Care Provider Encounter Details Date Type Department Care Team (Late st Contact Info) Description 07/29/2020 Telephone [facility] - Imaging [address] [place] [address] Transcribed Order, Provider Social History Tobacco Use Types Packs/Day Years Used Date Smoking Tobacco: Never Smokeless Tobacco: Never Alcohol Use Standard Drinks/Week Comments No 0 (1 standard drink = 0.6 oz pur e alcohol) Sex and Gender Information Value Date Recorded Sex Assigned at Not on file 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
[2025-04-01 19:10] LABS: Hemoglobin A1C 5.2 % (<5.7)
[2025-04-01 19:11] LABS: Anion Gap 7 mmol/L (4-12); Blood Urea Nitrogen 25 mg/dL (9-20); Calcium 9.6 mg/dL (8.4-10.2); Carbon Dioxide 27 mmol/L (22-30); Chloride 103 mmol/L (98-107); Cholesterol 146 mg/dL (0-200); Estimated Glomerular Filt Rate > 60; Glucose 99 mg/dL (65-110); HDL Direct 70 mg/dL; Potassium 4.3 mmol/L (3.4-5.0); Sodium 137 mmol/L (137-145); Triglycerides 52 mg/dL (<150)
[2025-04-01 19:15] LABS: Hematocrit 40.7 % (42.0-52.0); Hemoglobin 12.9 g/dL (14.0-18.0); Immature Granulocyte Percent A 0.2 % (0-0.5); Lymphocytes Absolute Auto 1.44 K/mm3 (0.9-3.2); Mean Corpuscular HGB Conc 31.7 g/dl (32-36); Mean Corpuscular Hemoglobin 31.1 pg (26-34); Mean Corpuscular Volume 98.1 fl (80-100); Nucleated Red Blood Cells Absolute Auto 0.000 K/mm3 (0.0-0.012); Nucleated Red Blood Cells Perc 0.0 % (0.0-0.2); Platelet Count Result 170 k/mm3 (150-375); Red Blood Count 4.15 M/mm3 (4.6-6.20); White Blood Count 4.6 K/mm3 (4.5-10.0)
[2025-04-01 19:27] LABS: Free T4 Free Thyroxine 1.27 ng/dL (0.78-2.19)
[2025-04-01 19:55] LABS: Thyroid Stimulating Hormone 3.510 uIU/mL (0.465-4.680)
[2025-04-01 20:30] LABS: Vitamin B12 270.0 pg/mL (239-931)
== END 2025-04-01 14:37 | disposition home or self-care (01) ==
LOC: ANHGOSHLAB 14:37
PROVIDERS: PCP Internal Medicine; Visit Provider Internal Medicine
DX: E53.8 Deficiency of other specified B group vitamins (principal); I10 Essential (primary) hypertension; E03.9 Hypothyroidism, unspecified; Z79.899 Other long term (current) drug therapy; Z13.220 Encounter for screening for lipoid disorders; Z13.1 Encounter for screening for diabetes mellitus
CPT/HCPCS: 36415; 80048; 80061; 82607; 82746; 83036; 84439; 84443; 85025